=== PATIENT | female | born 1995 | race Two or more races ===

== ENCOUNTER 2017-03-03 09:03 | Emergency (ER) | payer BC, SELFPAY ==
[2017-03-03 09:21] VITALS: BP 143/60; PULSE 106; RESP 20; TEMP 37.5; O2SAT 97; BMI 22.6
--- NOTE | 2017-03-03 09:33 | HMH.EDUTC ---
[facility] [place] Dis[place] Clinical Impression: Flu-like symptoms Disposition: Home, Self-Care Condition on Discharge: Good Instructions: Influenza Additional Instructions: Rest, fluids, alternate Tylenol and Motrin for fever as needed. Will treat with Tamiflu due to possible inaccuracy of test and 5 month old infant in her care. Referrals: Dorinda Walker PA [Primary Care Provider] - Time of Disposition: 09:56 Medical Decision Making Vital Signs: 03/03/17 09:21 Temperature 99.5 F Temperature Source Oral Pulse Rate [Left Brachial] 106 H Respiratory Rate 20 Blood Pressure [Right Arm] 143/60 Blood Pressure Mean [Right Arm] 87 Blood Pressure Source [Right Arm] Automatic Cuff Blood Pressure Position [Right Arm] Sitting 02 Sat by Pulse Oximetry 97 Oxygen Delivery Method Room Air - Spenser Inquiry Pt receiving controlled substance: No [facility] [place] HPI - General Stated complaint: poss flu Time Seen by Provider: 03/03/17 09:25 Mode of Arrival: Ambulatory Source of Information: Patient Limitations: No Limitations Description of Symptoms (Recalled from Triage Doc. by RN): Cough, fever, congestion that started yesterday. Abrupt onset of fever 102.6 with malaise. Also has sore throat. Patient is 5 month old infant. HEENT Symptoms (Recalled from RN notes): Yes (sore throat) Resp Symptoms (Recalled from RN notes): Yes (cough) Skin Symptoms (Recalled from RN notes): No MS Symptoms (Recalled from RN notes): No Functional Status (Recalled from RN notes): na - History of Present Illness Provider Complaint: cough, sore throat, fever Onset (ago): day(s) (1) Associated symptoms: cough, fever/chills, headaches - Related Data Previous Rx's Medication Instructions Recorded Oseltamivir Phosphate [Tamiflu 75 mg PO BID 5 Days #10 cap 03/03/17 75mg Capsule] Promethazine/Dextromethorphan 5 ml PO Q6HP PRN 10 Days #180 syrup 03/03/17 [Promethazine-Dm Syrup] Allergies Allergy/AdvReac Type Severity Reaction Status Date / Time No Known Allergies Allergy Unverified 02/12/17 15:01 - Worker's Comp Is this a Worker's Comp case?: No Is this an H Worker's Comp?: No Is this a [place] Worker's Comp?: No [facility] History I have reviewed the patient's past medical history: Yes Medical History: Denies:: Cancer, Diabetes Mellitus Type 1, Diabetes Mellitus Type 2, MRSA Amputation: No - *Social History Alcohol Intake: never - Psychiatric History Expresses thoughts of harming self/others: None Suicide Plan Description: No Plan - Constitutional Reports body ache(s), Reports fever(s), Reports headache(s) - ENT Reports sore throat - Respiratory Reports cough Physical Exam - General General appearance: alert, in distress Comment: appears ill, but non-toxic - Head Head exam: atraumatic, normocephalic, normal inspection - Eye Eye exam: Present: normal appearance, PERRL, EOMI - ENT ENT exam: Present: normal exam, mucous membranes moist, TM's normal bilaterally, normal external ear exam - Expanded ENT Exam Throat exam: Present: tonsillar erythema - Neck Neck exam: Present: normal inspection, full ROM, trachea midline, lymphadenopathy. Absent: meningismus - Chest Chest inspection: Present: normal inspection, symmetric chest wall rise. Absent: tenderness - Respiratory Respiratory exam: Present: normal lung sounds bilaterally. Absent: respiratory distress - Cardiovascular Cardiovascular exam: Present: regular rate, normal rhythm. Absent: JVD - Abdominal Exam Abdominal exam: Present: soft, normal bowel sounds. Absent: distention, tenderness, guarding - Extremities Exam Extremities exam: Present: normal inspection, full ROM, normal capillary refill. Absent: calf tenderness - Back Exam Back exam: Present: normal inspection. Absent: tenderness - Neurological Exam Neurological exam: Present: alert, oriented X3 - Psychiatric Psychiatric exam: Present: normal affect, no
--- NOTE | 2017-03-03 09:36 | ED_ITS ---
[facility] [place]ression: Flu-like symptoms Disposition: Home, Self-Care Condition on Discharge: Good Instructions: Influenza Additional Instructions: Rest, fluids, alternate Tylenol and Motrin for fever as needed. Will treat with Tamiflu due to possible inaccuracy of test and 5 month old infant in her care. Referrals: Dorinda Walker PA [Primary Care Provider] - Time of Disposition: 09:56 Medical Decision Making Vital Signs: 03/03/17 09:21 Temperature 99.5 F Temperature Source Oral Pulse Rate [Left Brachial] 106 H Respiratory Rate 20 Blood Pressure [Right Arm] 143/60 Blood Pressure Mean [Right Arm] 87 Blood Pressure Source [Right Arm] Automatic Cuff Blood Pressure Position [Right Arm] Sitting 02 Sat by Pulse Oximetry 97 Oxygen Delivery Method Room Air - Spenser Inquiry Pt receiving controlled substance: No [facility] [place] - General Stated complaint: poss flu Time Seen by Provider: 03/03/17 09:25 Mode of Arrival: Ambulatory Source of Information: Patient Limitations: No Limitations Description of Symptoms (Recalled from Triage Doc. by RN): Cough, fever, congestion that started yesterday. Abrupt onset of fever 102.6 with malaise. Also has sore throat. Patient is 5 month old infant. HEENT Symptoms (Recalled from RN notes): Yes (sore throat) Resp Symptoms (Recalled from RN notes): Yes (cough) Skin Symptoms (Recalled from RN notes): No MS Symptoms (Recalled from RN notes): No Functional Status (Recalled from RN notes): na - History of Present Illness Provider Complaint: cough, sore throat, fever Onset (ago): day(s) (1) Associated symptoms: cough, fever/chills, headaches - Related Data Previous Rx's Medication Instructions Recorded Oseltamivir Phosphate [Tamiflu 75 mg PO BID 5 Days #10 cap 03/03/17 75mg Capsule] Promethazine/Dextromethorphan 5 ml PO Q6HP PRN 10 Days #180 syrup 03/03/17 [Promethazine-Dm Syrup] Allergies Allergy/AdvReac Type Severity Reaction Status Date / Time No Known Allergies Allergy Unverified 02/12/17 15:01 - Worker's Comp Is this a Worker's Comp case?: No Is this an H Worker's Comp?: No Is this a [place] Worker's Comp?: No [facility] History I have reviewed the patient's past medical history: Yes Medical History: Denies:: Cancer, Diabetes Mellitus Type 1, Diabetes Mellitus Type 2, MRSA Amputation: No - *Social History Alcohol Intake: never - Psychiatric History Expresses thoughts of harming self/others: None Suicide Plan Description: No Plan - Constitutional Reports body ache(s), Reports fever(s), Reports headache(s) - ENT Reports sore throat - Respiratory Reports cough Physical Exam - General General appearance: alert, in distress Comment: appears ill, but non-toxic - Head Head exam: atraumatic, normocephalic, normal inspection - Eye Eye exam: Present: normal appearance, PERRL, EOMI - ENT ENT exam: Present: normal exam, mucous membranes moist, TM's normal bilaterally , normal external ear exam - Expanded ENT Exam Throat exam: Present: tonsillar erythema - Neck Neck exam: Present: normal inspection, full ROM, trachea midline, lymphadenopathy. Absent: meningismus - Chest Chest inspection: Present: normal inspection, symmetric chest
[2017-03-03 09:55] LABS: UTC Influenza A Antigen Negative (Negative); UTC Influenza B Antigen Negative (Negative)
[2017-03-03 09:56] LABS: UTC Strep Screen (Rapid) Negative (Negative)
== END 2017-03-03 10:05 | disposition home or self-care (01) ==
PROVIDERS: Emergency Provider Physician Assistant; Family Provider Physician Assistant; PCP Physician Assistant
DX: J11.1 Influenza due to unidentified influenza virus with other respiratory manifestations (principal)
CPT/HCPCS: 87276; 87430; 87804; 87880; 99202

== ENCOUNTER 2017-03-23 09:38 | Emergency (ER) | payer BC, SELFPAY ==
[2017-03-23 10:01] VITALS: BP 137/87; PULSE 118; RESP 20; TEMP 36.6; O2SAT 98; BMI 21.0
--- NOTE | 2017-03-23 10:06 | HMH.EDUTC ---
[facility] [place] Clinical Impression: Otitis media Qualifiers: Otitis media type: unspecified Laterality: left Qualified Code(s): H66.92 - Otitis media, unspecified, left ear Disposition: Home, Self-Care Condition on Discharge: Good Instructions: Middle Ear Infection, Ear Infections (Middle Ear) (Alternative Therapy) Additional Instructions: Take medication as prescribed Follow up with family doctor if no improvement Return if needed Over the counter Motrin or Tylenol as needed for pain or fever Prescriptions: Amoxicillin [Amoxicillin 500mg Cap] 500 mg PO TID #30 cap Fluticasone Propionate [Flonase 50mcg nasal spray 16gm] 2 spr NS DAILY #1 bottle Loratadine [Claritin 10mg Tablet] 10 mg PO DAILY #30 tab Referrals: Dorinda Walker PA [Primary Care Provider] - Time of Disposition: 10:12 Medical Decision Making - Medical Records Medical records reviewed: Yes: I reviewed the patient's medical records. Vital Signs: 03/23/17 10:01 Temperature 98 F Temperature Source Oral Pulse Rate [Right Brachial] 118 H Respiratory Rate 20 Blood Pressure [Right Arm] 137/87 Blood Pressure Mean [Right Arm] 103 Blood Pressure Source [Right Arm] Automatic Cuff Blood Pressure Position [Right Arm] Sitting 02 Sat by Pulse Oximetry 98 Oxygen Delivery Method Room Air - Spenser Inquiry Pt receiving controlled substance: No [place] was queried for this patient: No [facility] [place] - General Stated complaint: bilateral earache Mode of Arrival: Ambulatory Source of Information: Patient Limitations: No Limitations Description of Symptoms (Recalled from Triage Doc. by RN): C/O lt ear pain and draining since yesterday HEENT Symptoms (Recalled from RN notes): Yes (Lt ear pain and drainage) Resp Symptoms (Recalled from RN notes): No Skin Symptoms (Recalled from RN notes): No MS Symptoms (Recalled from RN notes): No Functional Status (Recalled from RN notes): N/A - History of Present Illness Provider Complaint: Patient state that she had the flu about 3 weeks ago State that she is now having pain in both of her ears State that when she swallows it makes her throat hurt States that she is having pain in her left side of neck area just under her ear State that the pain in her ears have continued to get worse over the last 2 weeks - Related Data Home Medications Medication Instructions Recorded Confirmed etonogestrel 68 mg subdermal 1 implant SUBDERMAL ONCE 03/05/17 implant Previous Rx's Medication Instructions Recorded Oseltamivir Phosphate [Tamiflu 75 mg PO BID 5 Days #10 cap 03/03/17 75mg Capsule] Promethazine/Dextromethorphan 5 ml PO Q6HP PRN 10 Days #180 syrup 03/03/17 [Promethazine-Dm Syrup] Amoxicillin [Amoxicillin 500mg 500 mg PO TID #30 cap 03/23/17 Cap] Fluticasone Propionate [Flonase 2 spr NS DAILY #1 bottle 03/23/17 50mcg nasal spray 16gm] Loratadine [Claritin 10mg Tablet] 10 mg PO DAILY #30 tab 03/23/17 Allergies Allergy/AdvReac Type Severity Reaction Status Date / Time No Known Allergies Allergy Unverified 03/05/17 09:19 - Worker's Comp Is this a Worker's Comp case?: No [facility] History I have reviewed the patient's past medical history: Yes Medical History: Denies:: Cancer, Diabetes Mellitus Type 1, Diabetes Mellitus Type 2, MRSA Laterality Cases: Bilateral: Tonsillectomy Other Surgeries: Yes: Other Amputation: No Fractures: No - *Social History Smoking Status: Never smoker Alcohol Intake: never Substance Use Type: denies use - Psychiatric History Expresses thoughts of harming self/others: None Suicide Plan Description: No Plan *Family Hx:: No significant family history ROS Obtained: Yes All systems reviewed & no additional complaints Physical Exam - General General appearance: alert, in no apparent distress - Expanded ENT Exam TM/Canal exam: Left TM: erythema (Right mildly red), Bilateral TM: bulging Comment: Throat mildly red, irritated - Respirator
--- NOTE | 2017-03-23 10:09 | ED_ITS ---
[facility] [place] Impression: Otitis media Qualifiers: Otitis media type: unspecified Laterality: left Qualified Code(s): H66.92 - Otitis media, unspecified, left ear Disposition: Home, Self-Care Condition on Discharge: Good Instructions: Middle Ear Infection, Ear Infections (Middle Ear) (Alternative Therapy) Additional Instructions: Take medication as prescribed Follow up with family doctor if no improvement Return if needed Over the counter Motrin or Tylenol as needed for pain or fever Prescriptions: Amoxicillin [Amoxicillin 500mg Cap] 500 mg PO TID #30 cap Fluticasone Propionate [Flonase 50mcg nasal spray 16gm] 2 spr NS DAILY #1 bottle Loratadine [Claritin 10mg Tablet] 10 mg PO DAILY #30 tab Referrals: Dorinda Walker PA [Primary Care Provider] - Time of Disposition: 10:12 Medical Decision Making - Medical Records Medical records reviewed: Yes: I reviewed the patient's medical records. Vital Signs: 03/23/17 10:01 Temperature 98 F Temperature Source Oral Pulse Rate [Right Brachial] 118 H Respiratory Rate 20 Blood Pressure [Right Arm] 137/87 Blood Pressure Mean [Right Arm] 103 Blood Pressure Source [Right Arm] Automatic Cuff Blood Pressure Position [Right Arm] Sitting 02 Sat by Pulse Oximetry 98 Oxygen Delivery Method Room Air - Spenser Inquiry Pt receiving controlled substance: No [place] was queried for this patient: No [facility] [place] - General Stated complaint: bilateral earache Mode of Arrival: Ambulatory Source of Information: Patient Limitations: No Limitations Description of Symptoms (Recalled from Triage Doc. by RN): C/O lt ear pain and draining since yesterday HEENT Symptoms (Recalled from RN notes): Yes (Lt ear pain and drainage) Resp Symptoms (Recalled from RN notes): No Skin Symptoms (Recalled from RN notes): No MS Symptoms (Recalled from RN notes): No Functional Status (Recalled from RN notes): N/A - History of Present Illness Provider Complaint: Patient state that she had the flu about 3 weeks ago State that she is now having pain in both of her ears State that when she swallows it makes her throat hurt States that she is having pain in her left side of neck area just under her ear State that the pain in her ears have continued to get worse over the last 2 weeks - Related Data Home Medications Medication Instructions Recorded Confirmed etonogestrel 68 mg subdermal 1 implant SUBDERMAL ONCE 03/05/17 implant Previous Rx's Medication Instructions Recorded Oseltamivir Phosphate [Tamiflu 75 mg PO BID 5 Days #10 cap 03/03/17 75mg Capsule] Promethazine/Dextromethorphan 5 ml PO Q6HP PRN 10 Days #180 syrup 03/03/17 [Promethazine-Dm Syrup] Amoxicillin [Amoxicillin 500mg 500 mg PO TID #30 cap 03/23/17 Cap] Fluticasone Propionate [Flonase 2 spr NS DAILY #1 bottle 03/23/17 50mcg nasal spray 16gm] Loratadine [Claritin 10mg Tablet] 10 mg PO DAILY #30 tab 03/23/17 Allergies Allergy/AdvReac Type Severity Reaction Status Date / Time No Known Allergies Allergy Unverified 03/05/17 09:19 - Worker's Comp Is this a Worker's Comp case?: No [facility] History I have reviewed the patient's past medical history: Yes Medical History: Denies:: Cancer, Diabetes Mellitus Type 1, Diabetes Mellitus Type 2, MRSA Lateral
[2017-03-23 10:16] VITALS: BP 137/87; PULSE 118; RESP 20; TEMP 36.6; O2SAT 98
== END 2017-03-23 10:18 | disposition home or self-care (01) ==
PROVIDERS: Emergency Provider Nurse Practitioner; Family Provider Physician Assistant; PCP Physician Assistant
DX: H66.92 Otitis media, unspecified, left ear (principal); R00.0 Tachycardia, unspecified
CPT/HCPCS: 99202

== ENCOUNTER 2017-05-16 22:34 | Emergency (ER) | payer BC, SELFPAY ==
--- NOTE | 2017-05-16 22:41 | PC.NURSE ---
pan called and given an update on this patient.
[2017-05-16 23:00] VITALS: BP 00/00; PULSE 0; RESP 0; TEMP -17.7; TEMP 0
== END 2017-05-16 22:59 | disposition left against medical advice (07) ==
PROVIDERS: Emergency Provider Emergency Medicine; Family Provider Physician Assistant; PCP Physician Assistant
DX: Z53.29 Procedure and treatment not carried out because of patient's decision for other reasons (principal)
CPT/HCPCS: 99211

== ENCOUNTER → 2017-11-15 10:36 | Outpatient (CLI) | payer BC, SELFPAY ==
[2017-11-15 13:00] LABS: Thyroid Stimulating Hormone 2.15 uIU/ml (0.358-3.740)
== END ==
PROVIDERS: PCP Emergency Medicine; Visit Provider Obstetrics & Gynecology
DX: N93.8 Other specified abnormal uterine and vaginal bleeding (principal)
CPT/HCPCS: 36415; 84443

== ENCOUNTER → 2018-08-21 10:07 | Outpatient (CLI) | payer BC, SELFPAY ==
--- NOTE | 2018-08-21 10:08 | US_ITS ---
US breast RT complete INDICATION: Palpable nodule in the right breast at 9:00 with breast pain ORDERING PHYSICIAN: TONIO Castellon PATIENT AGE: 22 years COMPARISON: None TECHNIQUE: Right breast ultrasound complete with axilla FINDINGS: Heterogeneous echotexture fibroglandular tissue. No discrete mass evident. Specifically, no sonographically detected nodule at the 9:00 region. Small nodes are present in the axilla IMPRESSION: No nodules apparent BI-RADS Category: 1 Negative Follow-up suggested as clinically warranted. Negative ultrasound does not exclude possibility of a nodule. Any palpable nodule should be managed on a clinical basis. (A letter has been sent to the patient regarding results of the study.)
== END ==
PROVIDERS: PCP Physician Assistant; Visit Provider Physician Assistant
DX: N63.10 Unspecified lump in the right breast, unspecified quadrant (principal)
CPT/HCPCS: 76641

== ENCOUNTER → 2018-09-18 09:51 | Outpatient (CLI) | payer BC, SELFPAY ==
[2018-09-19 15:05] LABS: HIV Screen 4th Generation wRfx Non Reactive (Non Reactive); Hepatitis C Antibody <0.1 s/co ratio (0.0-0.9); Rapid Plasma Reagin Ab Titer Non Reactive (NonRea<1:1)
== END ==
PROVIDERS: Visit Provider Obstetrics & Gynecology
DX: Z11.3 Encounter for screening for infections with a predominantly sexual mode of transmission (principal)
CPT/HCPCS: 36415; 86592; 86703; 87380; G0432

== ENCOUNTER 2019-08-06 10:53 | Emergency (ER) | payer MEDICAID, SELFPAY ==
[2019-08-06 10:55] VITALS: BP 137/80; PULSE 95; RESP 16; TEMP 37.1; O2SAT 95; BMI 22.3
--- NOTE | 2019-08-06 11:19 | HMH.EDGENADL ---
ED Disposition Clinical Impression: Vaginal bleeding, Bacterial vaginosis Disposition: Home, Self-Care Condition on Discharge: Good Instructions: DI for Vaginal Bleeding, DI for Bacterial Vaginosis Additional Instructions: Flagyl as prescribed. Follow-up with Dr. Pablo in the office, call for appointment. Prescriptions: metroNIDAZOLE [Flagyl] 500 mg PO BID #14 tab Transmission Status: Pending to [id number] Referrals: Dorinda Walker PA [Primary Care Provider] - - Critical Care Critical Care Time: No Attestation: On 08/06/19, the high probability of a clinically significant, sudden or life threatening deterioration of the following system(s) required my full and direct attention, intervention and personal management. The time I documented below is in addition to time spent performing reported procedures but includes the following listed in this critical care notation. Medical Decision Making - Spenser Inquiry Pt receiving controlled substance: No Vital Signs: 08/06/19 10:55 Temperature 98.8 F Temperature Source Oral Pulse Rate [Left Radial] 95 H Respiratory Rate 16 Blood Pressure [Right Arm] 137/80 Blood Pressure Mean [Right Arm] 99 Blood Pressure Position [Right Arm] Sitting 02 Sat by Pulse Oximetry 95 Oxygen Delivery Method Room Air Oxygen Flow Rate (LPM) 2 - Lab Data Lab Results 08/06/19 11:05: Urine Color Yellow, Urine Appearance Clear, Urine pH 6.0, Ur Specific [place] 1.025, Urine Protein Negative, Urine Glucose (UA) Negative, Urine Ketones Negative, Urine Blood 2+, Urine Nitrate Negative, Urine Bilirubin Negative, Urine Urobilinogen 0.2, Ur Leukocyte Esterase Negative, Urine RBC 10-20, Urine WBC 3-5, Ur Squamous Epith Cells 5-10 08/06/19 11:05: Urine HCG, Qual Negative 08/06/19 11:08: WBC 10.2, RBC 4.63, Hgb 14.2, Hct 43.1, MCV 93.3, MCH 30.6, MCHC 32.8, RDW 12.3, Plt Count 306, MPV 7.4, Neut % (Auto) 60.6, Lymph % (Auto) 33.7, [place] % (Auto) 3.9, Eos % (Auto) 1.1, Baso % (Auto) 0.7, Neut # (Auto) 6.2, Lymph # (Auto) 3.4, [place] # (Auto) 0.4, Eos # (Auto) 0.1, Baso # (Auto) 0.1 08/06/19 11:08: Sodium 139, Potassium 3.7, Chloride 106, Carbon Dioxide 27, Anion Gap 9.7, BUN 12, Creatinine 0.70, Estimated Creat Clear 144, Estimated GFR 105, Est GFR ( Amer) 127, Glucose 101 H, Calcium 9.2, Total Bilirubin 1.6 H, AST 26, ALT 11 L, Alkaline Phosphatase 81, Total Protein 7.5, Albumin 4.6, Globulin 2.9, Albumin/Globulin Ratio 1.6 Result diagrams: 08/06/19 11:08 08/06/19 11:08 General Adult HPI - General Chief complaint: Vaginal Bleeding Stated complaint: Abnormal Vaginal bleeding ,cramps Time Seen by Provider: 08/06/19 11:19 Mode of Arrival: Ambulatory Limitations: No Limitations Description of Symptoms (Recalled from ER Triage Doc. by RN): to ed per pvt car with c/o vag bleeding watery mucus starting 2 weeks ago after intercourse. c/o lower abd pain and lower back pain. pt states LMP 2 weeks ago. - History of Present Illness HPI narrative: Complains of abnormal vaginal bleeding, bad vaginal odor, pelvic pain, dyspareunia for the past 2 weeks. Last normal menstrual period was 2 weeks ago. She used tampons, but says she does not have a retained tampon. She has a bottler, Dr. Pablo, but says that because of COVID-19 it has messed up her insurance and they will not see her for 30 days. She says she has been on the phone for 4-1/2 hours this morning and was unable to get anything arranged to be seen as an outpatient, therefore came to the emergency room. - Related Data Home Medications Medication Instructions Recorded Confirmed etonogestrel 68 mg subdermal SUBDERMAL each 09/18/18 09/23/18 implant Previous Rx's Medication Instructions Recorded vitamin E mixed 1,000 unit capsule 1 unit PO DAILY #90 cap 08/18/18 metroNIDAZOLE [Flagyl] 500 mg PO BID #14 tab 08/06/19 Allergies Allergy/AdvReac Type Severity Reaction Status Date / Time No Known Abhishek
[2019-08-06 11:24] LABS: Microscopic, Urine URINE MICROSCOPIC (MICROSCOPIC)
[2019-08-06 11:27] LABS: Appearance,Urine CLEAR (Clear); Bilirubin,Urine Negative (Negative); Blood, Urine 2+ (Negative); Color,Urine YELLOW (Yellow); Glucose,Urine (UA) Negative (Negative); Ketones,Urine Negative (Negative); Leukocyte Esterase,Urine Negative (Negative); Nitrate,Urine Negative (Negative); Protein,Urine Negative (Negative); Specific Gravity, Urine 1.025 (1.005-1.030); Urine Pregnancy, HCG Qual. Negative (Negative); Urobilinogen,Urine 0.2 EU/dl (0.2)
[2019-08-06 11:38] LABS: Chloride 106 mmol/L (98-107); Sodium 139 mmol/L (136-145)
[2019-08-06 11:39] LABS: Potassium 3.7 mmoL/L (3.5-5.1)
[2019-08-06 11:41] LABS: Alanine Aminotransferase 11 U/L (12-78); Alkaline Phosphatase 81 U/L (38-126); Anion Gap 9.7 mEq/L (5-15); Aspartate Amino Transferase 26 U/L (14-36); Bilirubin,Total 1.6 mg/dl (0.2-1.3); Blood Urea Nitrogen 12 mg/dl (7-17); Carbon Dioxide 27 mmol/L (22.0-30.0); Creatinine Clearance Estimated 144 mL/min (50-200); Estimated Glomerular Filt Rate 105 ml/min (>60); GFR (African American) 127 ML/MIN (>60)
[2019-08-06 11:42] LABS: Albumin Level 4.6 g/dl (3.5-5.0); Albumin/Globulin Ratio 1.6 (1.1-1.8); Calcium 9.2 mg/dl (8.4-10.2); Globulin 2.9 g/dL (1.3-3.2); Glucose 101 mg/dl (74-100); Total Protein,Serum 7.5 g/dl (6.3-8.2)
[2019-08-06 11:43] LABS: Basophils # 0.1 K/mm3 (0-0.2); Basophils % 0.7 % (0.1-2.0); Eosinophils # 0.1 K/mm3 (0.0-0.4); Eosinophils % 1.1 % (0.1-12.0); Hematocrit 43.1 % (37.0-47.0); Hemoglobin 14.2 g/dL (12.2-16.2); Lymphocytes # 3.4 K/mm3 (0.7-4.5); Lymphocytes % 33.7 % (10-50); Mean Corpuscular HGB Conc 32.8 g/dL (31.8-35.4); Mean Corpuscular Hemoglobin 30.6 pg (27.0-31.2); Mean Corpuscular Volume 93.3 fl (81-99); Mean Platelet Volume 7.4 fl (7.4-10.4); Monocytes # 0.4 K/mm3 (0.1-1.0); Monocytes % 3.9 % (1.7-9.3); Neutrophils # 6.2 K/mm3 (1.8-7.8); Neutrophils % 60.6 % (37.0-80.0); Platelet Count 306 K/mm3 (142-424); Red Blood Count 4.63 M/mm3 (4.20-5.40); Red Cell Distribution Width 12.3 % (11.5-17.5); White Blood Count 10.2 K/mm3 (4.8-10.8)
--- NOTE | 2019-08-06 12:13 | PC.NURSE ---
Assisted MD with vaginal exam and specimen collection
[2019-08-06 12:30] VITALS: BP 130/87; PULSE 80; RESP 20; TEMP 36.8; O2SAT 98
== END 2019-08-06 12:40 | disposition home or self-care (01) ==
PROVIDERS: Emergency Provider Emergency Medicine; PCP Physician Assistant
DX: N76.0 Acute vaginitis (principal); Z90.09 Acquired absence of other part of head and neck
CPT/HCPCS: 80053; 81001; 81025; 85025; 87210; 99283

== ENCOUNTER → 2020-10-26 09:32 | Outpatient (CLI) | payer BC, SELFPAY | PROVIDERS: PCP Emergency Medicine; Referring Provider Emergency Medicine; Visit Provider Emergency Medicine | DX: Z20.822 Contact with and (suspected) exposure to COVID-19 (principal); U07.1 COVID-19 | CPT/HCPCS: U0003 ==

== ENCOUNTER → 2021-02-22 11:15 | Outpatient (CLI) | payer BC, SELFPAY | PROVIDERS: Visit Provider Nurse Practitioner | DX: Z20.822 Contact with and (suspected) exposure to COVID-19 (principal) | CPT/HCPCS: C9803; U0003; U0005 ==

== ENCOUNTER 2021-04-21 04:39 | Emergency (ER) | payer OTHER, SELFPAY ==
[2021-04-21 04:42] VITALS: BP 144/85; PULSE 90; RESP 16; TEMP 36.8; O2SAT 99; BMI 21.2
[2021-04-21 04:54] VITALS: BMI 23.0
[2021-04-21 04:58] LABS: Appearance,Urine Slightly Cloudy (Clear); Bilirubin,Urine Negative (Negative); Blood, Urine TRACE-I (Negative); Color,Urine YELLOW (Yellow); Glucose,Urine (UA) Negative (Negative); Ketones,Urine Negative (Negative); Leukocyte Esterase,Urine TRACE (Negative); Microscopic, Urine URINE MICROSCOPIC (MICROSCOPIC); Nitrate,Urine Negative (Negative); Protein,Urine TRACE (Negative); Urobilinogen,Urine 0.2 EU/dl (0.2)
[2021-04-21 04:59] LABS: Bacteria,Urine 1+ /lpf; WBC,Urine Occasional #/hpf (0-3)
[2021-04-21 05:10] LABS: Chloride 102 mmol/L (98-107); Sodium 135 mmol/L (136-145)
[2021-04-21 05:11] LABS: Potassium 3.9 mmoL/L (3.5-5.1)
[2021-04-21 05:13] LABS: Alanine Aminotransferase 13 U/L (12-78); Alkaline Phosphatase 63 U/L (38-126); Amylase 67 U/L (30-110); Anion Gap 9.9 mEq/L (5-15); Aspartate Amino Transferase 22 U/L (14-36); Bilirubin,Total 0.6 mg/dl (0.2-1.3); Blood Urea Nitrogen 8 mg/dl (7-17); Calcium 8.5 mg/dl (8.4-10.2); Carbon Dioxide 27 mmol/L (22.0-30.0); Creatinine Clearance Estimated 171 mL/min (50-200); Estimated Glomerular Filt Rate 123 ml/min (>60); GFR (African American) 149 ML/MIN (>60); Glucose 93 mg/dl (74-100); HCG Qualitative, Serum Positive (Negative); Lipase 66 U/L (23-300)
[2021-04-21 05:14] LABS: Albumin Level 4.6 g/dl (3.5-5.0); Albumin/Globulin Ratio 1.8 (1.1-1.8); Globulin 2.6 g/dL (1.3-3.2); Total Protein,Serum 7.2 g/dl (6.3-8.2)
[2021-04-21 05:15] LABS: Basophils # 0.1 K/mm3 (0-0.2); Basophils % 0.6 % (0.1-2.0); Eosinophils # 0.1 K/mm3 (0.0-0.4); Eosinophils % 1.2 % (0.1-12.0); Hematocrit 42.5 % (37.0-47.0); Hemoglobin 13.8 g/dL (12.2-16.2); Lymphocytes # 2.2 K/mm3 (0.7-4.5); Lymphocytes % 22.6 % (10-50); Mean Corpuscular HGB Conc 32.6 g/dL (31.8-35.4); Mean Corpuscular Hemoglobin 30.1 pg (27.0-31.2); Mean Corpuscular Volume 92.4 fl (81-99); Mean Platelet Volume 7.3 fl (7.4-10.4); Monocytes # 0.4 K/mm3 (0.1-1.0); Monocytes % 4.1 % (1.7-9.3); Neutrophils # 6.9 K/mm3 (1.8-7.8); Neutrophils % 71.5 % (37.0-80.0); Platelet Count 406 K/mm3 (142-424); Red Cell Distribution Width 12.1 % (11.5-17.5); White Blood Count 9.7 K/mm3 (4.8-10.8)
[2021-04-21 05:18] LABS: Ethyl Alcohol < 10 mg/dl (0-10)
[2021-04-21 05:30] LABS: HCG,Quantitative 3909 mIU/ml (0-5.42)
--- NOTE | 2021-04-21 06:03 | PC.NURSE ---
notified radiology of ultrasound order
--- NOTE | 2021-04-21 06:13 | HMH.EDUROGF ---
ED Disposition Clinical Impression: Qualifiers: Weeks of gestation: less than 8 weeks Qualified Code(s): Z3A.01 - Less than 8 weeks gestation of Disposition: Home, Self-Care Condition on Discharge: Good Instructions: DI for -- Discomforts and Remedies Additional Instructions: call ob today Referrals: Dorinda Walker PA [Primary Care Provider] - - Critical Care Critical Care Time: No Attestation: On 04/21/21, the high probability of a clinically significant, sudden or life threatening deterioration of the following system(s) required my full and direct attention, intervention and personal management. The time I documented below is in addition to time spent performing reported procedures but includes the following listed in this critical care notation. Medical Decision Making - Medical Records Medical records reviewed: Yes: I reviewed the patient's medical records. - Spenser Inquiry Pt receiving controlled substance: No Vital Signs: 04/21/21 04:42 04/21/21 07:41 Temperature 98.2 F Temperature Source Oral Pulse Rate 77 Pulse Rate [Left] 90 Respiratory Rate 16 15 Blood Pressure 116/80 Blood Pressure [Right Arm] 144/85 H Blood Pressure Mean 92 Blood Pressure Mean [Right Arm] 104 02 Sat by Pulse Oximetry 99 99 Oxygen Delivery Method Room Air - Lab Data Lab results reviewed: Yes: I reviewed the patient's lab results. Lab Results 04/21/21 04:49: Urine Color Yellow, Urine Appearance Slightly cloudy, Urine pH 7.0, Ur Specific [place] 1.020, Urine Protein Trace, Urine Glucose (UA) Negative, Urine Ketones Negative, Urine Blood Trace-i, Urine Nitrate Negative, Urine Bilirubin Negative, Urine Urobilinogen 0.2, Ur Leukocyte Esterase Trace, Urine WBC Occasional, Ur Squamous Epith Cells 5-10, Urine Bacteria 1+ 04/21/21 04:55: WBC 9.7, RBC 4.60, Hgb 13.8, Hct 42.5, MCV 92.4, MCH 30.1, MCHC 32.6, RDW 12.1, Plt Count 406, MPV 7.3 L, Neut % (Auto) 71.5, Lymph % (Auto) 22.6, [place] % (Auto) 4.1, Eos % (Auto) 1.2, Baso % (Auto) 0.6, Neut # (Auto) 6.9, Lymph # (Auto) 2.2, [place] # (Auto) 0.4, Eos # (Auto) 0.1, Baso # (Auto) 0.1 04/21/21 04:55: Sodium 135 L, Potassium 3.9, Chloride 102, Carbon Dioxide 27, Anion Gap 9.9, BUN 8, Creatinine 0.60, Estimated Creat Clear 171, Estimated GFR 123, Est GFR ( Amer) 149, Glucose 93, Calcium 8.5, Total Bilirubin 0.6, AST 22, ALT 13, Alkaline Phosphatase 63, Total Protein 7.2, Albumin 4.6, Globulin 2.6, Albumin/Globulin Ratio 1.8, Amylase 67, Lipase 66, HCG, Quant 3909 H 04/21/21 04:55: Serum HCG, Qual Positive 04/21/21 04:55: Plasma/Serum Alcohol < 10 Result diagrams: 04/21/21 04:55 04/21/21 04:55 Orders (Tests/Meds): ED MEDICATIONS Generic Name Dose Route Start Last Admin Trade Name Freq PRN Reason Stop Dose Admin Sodium Chloride 8 ml 04/21/21 04:55 Sodium Chloride 0.9% 10ml Vial IV 05/21/21 04:54 NEEDED PRN dilute pepcid Discontinued Medications Generic Name Dose Route Start Last Admin Trade Name Freq PRN Reason Stop Dose Admin Famotidine 20 mg 04/21/21 04:55 04/21/21 05:07 Famotidine 20mg/2ml Vial IV 04/21/21 04:56 20 mg ONCE ONE Administration Sodium Chloride 1,000 mls @ 999 mls/hr 04/21/21 05:00 04/21/21 05:07 Sod Chlor 0.9% 1000ml Bag IV 04/21/21 06:00 999 mls/hr .[id number] SAMSON Administration ORDERS Category Date Time Status US OB transvaginal Stat Ultrasound 04/21/21 06:18 Ordered - US Data US Images: Pelvis ED US Reviewed: Yes: I have viewed radiologist's interpretation Preliminary Findings: Normal/NAD (iup) Medical Decision Narrative: pt with iup early and needs ob consult Female Urogenital HPI - General Chief complaint: Nausea/Vomiting/Diarrhea Stated complaint: vomiting,dizziness,pain in back on right side,preg Time Seen by Provider: 04/21/21 05:15 Mode of Arrival: Ambulatory Source of Information: Patient, Medical Record Limitations: No Limitations
--- NOTE | 2021-04-21 06:18 | US_ITS ---
FINAL REPORT CLINICAL HISTORY: pain FINDINGS: PELVIC ULTRASOUND An intrauterine gestational sac is present measuring 7 mm. A small yolk sac is seen. No cardiac activity is identified probably related to early IUP. There is a complex 1.8 cm right ovarian mass favoring a corpus luteum cyst. The left ovary is within normal limits. IMPRESSION: Early intrauterine . Recommend follow-up ultrasound and beta HCG. Reviewed, Interpreted and Dictated by Reynaldo Bolden MD Transcribed by Cosmo Adame Authenticated by Reynaldo Bolden MD on 04/21/2021 09:18:29 AM [facility]
[2021-04-21 07:41] VITALS: BP 116/80; PULSE 77; RESP 15; O2SAT 99
--- NOTE | 2021-04-21 07:44 | PC.NURSE ---
Pt to Ultrasound
--- NOTE | 2021-04-21 08:07 | PC.NURSE ---
Pt returned from ultrasound.
[2021-04-21 08:31] VITALS: BP 124/62; PULSE 78; RESP 16; TEMP 36.6; O2SAT 98
== END 2021-04-21 08:32 | disposition home or self-care (01) ==
PROVIDERS: Emergency Provider Emergency Medicine; PCP Physician Assistant
DX: R42 Dizziness and giddiness (principal); Z3A.01 Less than 8 weeks gestation of pregnancy; R11.2 Nausea with vomiting, unspecified
CPT/HCPCS: 76817; 80053; 81001; 82150; 83690; 84702; 84703; 85025; 99283

== ENCOUNTER → 2021-04-24 11:41 | Outpatient (CLI) | payer OTHER, SELFPAY ==
[2021-04-24 13:38] LABS: HCG,Quantitative 8297 mIU/ml (0-5.42)
== END ==
PROVIDERS: Visit Provider Obstetrics & Gynecology
DX: Z34.90 Encounter for supervision of normal pregnancy, unspecified, unspecified trimester (principal)
CPT/HCPCS: 36415; 84702

== ENCOUNTER 2021-05-08 09:08 | Emergency (ER) | payer BC, MEDICAID, SELFPAY ==
[2021-05-08 09:10] VITALS: BP 140/85; PULSE 69; RESP 18; TEMP 37; O2SAT 99; BMI 21.5
[2021-05-08 09:25] LABS: Apearance,Urine Clear (Clear); Bilirubin,Urine Negative (Negative); Blood, Urine Trace (Negative); Color,Urine Yellow (Yellow); Glucose,Urine (UA) Negative (Negative); Ketones,Urine Negative (Negative); Protein,Urine Negative (Negative); UTC Leukocyte Esterase,Urine Negative (Negative); UTC Nitrate,Urine Negative (Negative); Urobilinogen,Urine 0.2 EU/dl (0.2)
--- NOTE | 2021-05-08 10:08 | HMH.EDUTC ---
[facility] Disposition Clinical Impression: Qualifiers: Weeks of gestation: 8 weeks Qualified Code(s): Z3A.08 - 8 weeks gestation of Nausea & vomiting Qualifiers: Vomiting type: unspecified Qualified Code(s): R11.2 - Nausea with vomiting, unspecified Disposition: Home, Self-Care Condition on Discharge: Good Instructions: Diet, Medications and , DI for Urinary Tract Infection (UTI), Urine Culture Additional Instructions: Drink plenty of fluids. Take the medications as directed. Follow up with your regular doctor. GO TO THE ER FOR ANY WORSENING SYMPTOMS We will culture the urine. That will tell what bacteria is causing your infection and which antibiotics will treat it best. Sometimes the first antibiotic we prescribe turns out to not work against different bacteria. So, make sure you follow up within 3 days if you are not getting better. Prescriptions: Ondansetron [Zofran 4mg ODT] 4 mg PO Q8HP PRN #12 tab PRN Reason: Nausea Transmission Status: Pending to [facility] cephALEXin [cephALEXin 500mg capsule] 500 mg PO Q6H 7 Days #28 cap Transmission Status: Pending to [facility] Promethazine HCl [Phenergan 25mg tab] 25 mg PO Q6H PRN #20 tab PRN Reason: Nausea And Vomiting Transmission Status: Pending to [facility] Referrals: Dorinda Walker PA [Primary Care Provider] - Forms: Work/School Release Time of Disposition: 10:24 Medical Decision Making - Medical Records Medical records reviewed: No: I reviewed the patient's medical records. - [place] Inquiry Pt receiving controlled substance: No Vital Signs: 05/08/21 09:10 Temperature 98.6 F Temperature Source Oral Pulse Rate [Right Brachial] 69 Respiratory Rate 18 Blood Pressure [Right Arm] 140/85 Blood Pressure Mean [Right Arm] 103 Blood Pressure Source [Right Arm] Automatic Cuff Blood Pressure Position [Right Arm] Sitting 02 Sat by Pulse Oximetry 99 Oxygen Delivery Method Room Air - Lab Data Lab results reviewed: Yes: I reviewed the patient's lab results. Lab Results 05/08/21 09:18: Urine Color Yellow, Urine Appearance Clear, Urine pH 7.0, Ur Specific [place] 1.020, Urine Protein Negative, Urine Glucose (UA) Negative, Urine Ketones Negative, Urine Blood Trace, Urine Nitrate Negative, Urine Bilirubin Negative, Urine Urobilinogen 0.2, Ur Leukocyte Esterase Negative Orders (Tests/Meds): ED MEDICATIONS Generic Name Dose Route Start Last Admin Trade Name Freq PRN Reason Stop Dose Admin Sodium Chloride 1,000 mls @ 999 mls/hr 05/08/21 10:15 05/08/21 09:40 Sod Chlor 0.9% 1000ml Bag IV 05/08/21 11:15 999 mls/hr .Q1H1M SAMSON Administration Discontinued Medications Generic Name Dose Route Start Last Admin Trade Name Freq PRN Reason Stop Dose Admin Ondansetron HCl 4 mg 05/08/21 09:43 05/08/21 10:05 Ondansetron 4mg/2ml Vial IV 05/08/21 09:44 4 mg ONCE ONE Administration ORDERS Category Date Time Status Urine Culture Stat Micro 05/08/21 09:15 Received [facility] HPI - General Stated complaint: possible uti Time Seen by Provider: 05/08/21 09:20 Mode of Arrival: Ambulatory Source of Information: Patient Limitations: No Limitations Description of Symptoms (Recalled from Triage Doc. by RN): PATIENT C/O NAUSEA, VOMITING, AND POSSIBLE UTI X 3 DAYS HEENT Symptoms (Recalled from RN notes): No Resp Symptoms (Recalled from RN notes): No Skin Symptoms (Recalled from RN notes): No MS Symptoms (Recalled from RN notes): No Functional Status (Recalled from RN notes): WNL - History of Present Illness Provider Complaint: She is 8 weeks approximately. She has been having n/v for the past 5 days. She believes it is morning sickness related. She had similar symptoms with her previous 1 at first too. She has also been having dysuria and urinary frequency for the past 2 days. She denies any vaginal bleeding, back
[2021-05-08 10:18] VITALS: BP 140/85; PULSE 69; RESP 18; TEMP 37; O2SAT 99
== END 2021-05-08 10:39 | disposition home or self-care (01) ==
PROVIDERS: Emergency Provider Nurse Practitioner Family; PCP Physician Assistant
DX: O21.0 Mild hyperemesis gravidarum (principal); Z3A.08 8 weeks gestation of pregnancy; R30.0 Dysuria
CPT/HCPCS: 81003; 87086; 96365; 96375; 99213; G0463; J2405

== ENCOUNTER → 2021-05-08 14:00 | Outpatient (CLI) | payer BC, MEDICAID, SELFPAY ==
--- NOTE | 2021-05-08 14:07 | US_ITS ---
FINAL REPORT CLINICAL HISTORY: Dates-- fu prev FINDINGS: Sonographic images of the pelvis were obtained. A single, living intrauterine is noted. A yolk sac is present and measures 0.5 cm. [place] to rump length measures 1.4 cm which corresponds to 7 weeks 5 days gestation. Heartbeat is identified and measures 167 beats per minute. There is a presumed corpus luteum cyst measuring 1.8 cm in the right ovary. The left ovary is within normal limits. There is fluid adjacent to the gestational sac which is likely a subchorionic hemorrhage. IMPRESSION: Single, living, intrauterine gestation with 7 weeks 5 days gestational age. Presumed corpus luteum cyst in the right ovary. Fluid adjacent to the gestational sac, likely subchorionic hemorrhage. Reviewed, Interpreted and Dictated by Santino Maxwell III, MD Transcribed by Nadiya Field Authenticated by Santino Maxwell III, MD on 05/08/2021 05:08:41 PM [facility]
== END ==
PROVIDERS: PCP Physician Assistant; Visit Provider Obstetrics & Gynecology
DX: Z34.90 Encounter for supervision of normal pregnancy, unspecified, unspecified trimester (principal)
CPT/HCPCS: 76801

== ENCOUNTER → 2021-05-15 11:04 | Outpatient (CLI) | payer BC, MEDICAID, SELFPAY ==
[2021-05-15 11:48] LABS: Basophils # 0.1 K/mm3 (0-0.2); Basophils % 0.4 % (0.1-2.0); Eosinophils # 0.1 K/mm3 (0.0-0.4); Eosinophils % 0.7 % (0.1-12.0); Hematocrit 41.7 % (37.0-47.0); Hemoglobin 13.4 g/dL (12.2-16.2); Lymphocytes % 15.9 % (10-50); Mean Corpuscular HGB Conc 32.1 g/dL (31.8-35.4); Mean Corpuscular Hemoglobin 30.4 pg (27.0-31.2); Mean Corpuscular Volume 94.7 fl (81-99); Monocytes # 0.5 K/mm3 (0.1-1.0); Monocytes % 3.7 % (1.7-9.3); Neutrophils # 9.7 K/mm3 (1.8-7.8); Neutrophils % 79.2 % (37.0-80.0); Platelet Count 321 K/mm3 (142-424); Red Cell Distribution Width 12.4 % (11.5-17.5); White Blood Count 12.2 K/mm3 (4.8-10.8)
[2021-05-16 09:01] LABS: Rubella Antibodies, IgG <0.90 index (Immune >0.99)
[2021-05-16 09:17] LABS: Hepatitis B Surface Antigen Negative (Negative); Hepatitis C Antibody <0.1 s/co ratio (0.0-0.9)
[2021-05-16 12:13] LABS: HIV Screen 4th Generation wRfx Non Reactive (Non Reactive); Rapid Plasma Reagin Ab Titer Non Reactive (NonRea<1:1)
== END ==
PROVIDERS: PCP Physician Assistant; Visit Provider Obstetrics & Gynecology
DX: Z34.90 Encounter for supervision of normal pregnancy, unspecified, unspecified trimester (principal)
CPT/HCPCS: 36415; 85025; 86592; 86703; 86762; 86850; 87340; 87380; G0432

== ENCOUNTER 2021-05-25 06:12 | Emergency (ER) | payer BC, MEDICAID, SELFPAY ==
[2021-05-25 06:14] VITALS: BP 123/78; PULSE 107; RESP 17; TEMP 36.7; O2SAT 100; BMI 18.1
[2021-05-25 06:32] VITALS: BMI 17.6
[2021-05-25 06:44] LABS: Basophils % 0.3 % (0.1-2.0); Eosinophils # 0.1 K/mm3 (0.0-0.4); Eosinophils % 0.5 % (0.1-12.0); Hematocrit 43.4 % (37.0-47.0); Hemoglobin 14.3 g/dL (12.2-16.2); Lymphocytes # 0.3 K/mm3 (0.7-4.5); Lymphocytes % 2.2 % (10-50); Mean Corpuscular HGB Conc 32.9 g/dL (31.8-35.4); Mean Corpuscular Hemoglobin 30.4 pg (27.0-31.2); Mean Corpuscular Volume 92.4 fl (81-99); Mean Platelet Volume 7.8 fl (7.4-10.4); Monocytes # 0.3 K/mm3 (0.1-1.0); Monocytes % 2.2 % (1.7-9.3); Neutrophils # 13.3 K/mm3 (1.8-7.8); Neutrophils % 94.9 % (37.0-80.0); Platelet Count 301 K/mm3 (142-424); Red Blood Count 4.69 M/mm3 (4.20-5.40); Red Cell Distribution Width 12.5 % (11.5-17.5)
--- NOTE | 2021-05-25 06:48 | HMH.EDNVD ---
ED Disposition Clinical Impression: Gastroenteritis Qualifiers: Weeks of gestation: 10 weeks Qualified Code(s): Z3A.10 - 10 weeks gestation of Disposition: Home, Self-Care Condition on Discharge: Good Instructions: DI for Diarrhea and Traveler's Diarrhea -- Adult Additional Instructions: fluids and call ob and pcp for follow up Referrals: Dorinda Walker PA [Primary Care Provider] - - Critical Care Critical Care Time: No Attestation: On 05/25/21, the high probability of a clinically significant, sudden or life threatening deterioration of the following system(s) required my full and direct attention, intervention and personal management. The time I documented below is in addition to time spent performing reported procedures but includes the following listed in this critical care notation. Medical Decision Making - Medical Records Medical records reviewed: Yes: I reviewed the patient's medical records. - [place] Inquiry Pt receiving controlled substance: No Vital Signs: 05/25/21 06:14 05/25/21 07:00 Temperature 98.0 F Temperature Source Oral Pulse Rate 95 H Pulse Rate [Right] 107 H Respiratory Rate 17 Blood Pressure 123/75 Blood Pressure [Right Arm] 123/78 Blood Pressure Mean 87 Blood Pressure Mean [Right Arm] 93 Blood Pressure Source [Right Arm] Automatic Cuff 02 Sat by Pulse Oximetry 100 100 Oxygen Delivery Method Room Air - Lab Data Lab results reviewed: Yes: I reviewed the patient's lab results. Lab Results 05/25/21 06:26: ESR 6 05/25/21 06:26: C-Reactive Protein 6.5 H, Amylase 98, Procalcitonin 0.124 05/25/21 06:26: WBC 14.0 H, RBC 4.69, Hgb 14.3, Hct 43.4, MCV 92.4, MCH 30.4, MCHC 32.9, RDW 12.5, Plt Count 301, MPV 7.8, Neut % (Auto) 94.9 H, Lymph % (Auto) 2.2 L, [place] % (Auto) 2.2, Eos % (Auto) 0.5, Baso % (Auto) 0.3, Neut # (Auto) 13.3 H, Lymph # (Auto) 0.3 L, [place] # (Auto) 0.3, Eos # (Auto) 0.1, Baso # (Auto) 0.0, Total Counted 100, Neutrophils % (Manual) 93 H, Lymphocytes % (Manual) 4 L, Monocytes % (Manual) 3, Platelet Estimate Normal, RBC Morphology Normal 05/25/21 06:26: Sodium 138, Potassium 3.9, Chloride 107, Carbon Dioxide 24, Anion Gap 10.9, BUN 9, Creatinine 0.50 L, Estimated Creat Clear 162, Estimated GFR 152, Est GFR ( Amer) 183, Glucose 113 H, Calcium 9.0, Total Bilirubin 0.8, AST 23, ALT 20, Alkaline Phosphatase 66, Total Protein 7.2, Albumin 4.6, Globulin 2.6, Albumin/Globulin Ratio 1.8, Lipase 162, HCG, Quant [id number] H 05/25/21 06:26: Serum HCG, Qual Positive 05/25/21 07:30: Urine Color Yellow, Urine Appearance Clear, Urine pH 6.5, Ur Specific [place] 1.020, Urine Protein Negative, Urine Glucose (UA) Negative, Urine Ketones Negative, Urine Blood Negative, Urine Nitrate Negative, Urine Bilirubin Negative, Urine Urobilinogen 0.2, Ur Leukocyte Esterase Negative, Urine RBC None, Urine WBC 3-5, Ur Squamous Epith Cells Occasional, Urine Bacteria None Result diagrams: 05/25/21 06:26 05/25/21 06:26 Orders (Tests/Meds): ED MEDICATIONS Discontinued Medications Generic Name Dose Route Start Last Admin Trade Name Rk PRN Reason Stop Dose Admin Sodium Chloride 1,000 mls @ 999 mls/hr 05/25/21 06:45 05/25/21 06:40 Sod Chlor 0.9% 1000ml Bag IV 05/25/21 07:45 999 mls/hr .Q1H1M SAMSON Administration Promethazine HCl 25 mg 05/25/21 07:18 05/25/21 07:50 Promethazine Hcl 25mg/Ml 1ml Vial IV 05/25/21 07:19 25 mg ONCE ONE Administration Sodium Chloride 25 ml 05/25/21 07:18 05/25/21 07:50 Sodium Chloride 0.9% 25ml Bag IV 05/25/21 07:19 25 ml ONCE ONE Administration ORDERS Category Date Time Status Diarrhea 23 Panel, PCR Stat Lab 05/25/21 06:33 Ordered Rapid PCR Covid and Flu A/B Stat Lab 05/25/21 06:33 Ordered Medical Decision Narrative: has gastroenteritis and has stable labs and exam - improved after fluids - is 10 weeks Nausea/Vomiting/Diarrhea HPI - General Stated complaint: Vomi
[2021-05-25 06:49] LABS: MANUAL DIFFERENTIAL MANUAL DIFFERENTIAL (MANUAL DIFF)
[2021-05-25 06:52] LABS: Amylase 98 U/L (30-110); HCG Qualitative, Serum Positive (Negative)
[2021-05-25 06:53] LABS: Alanine Aminotransferase 20 U/L (12-78); Albumin Level 4.6 g/dl (3.5-5.0); Albumin/Globulin Ratio 1.8 (1.1-1.8); Alkaline Phosphatase 66 U/L (38-126); Anion Gap 10.9 mEq/L (5-15); Aspartate Amino Transferase 23 U/L (14-36); Bilirubin,Total 0.8 mg/dl (0.2-1.3); Blood Urea Nitrogen 9 mg/dl (7-17); Carbon Dioxide 24 mmol/L (22.0-30.0); Chloride 107 mmol/L (98-107); Creatinine Clearance Estimated 162 mL/min (50-200); Estimated Glomerular Filt Rate 152 ml/min (>60); GFR (African American) 183 ML/MIN (>60); Globulin 2.6 g/dL (1.3-3.2); Glucose 113 mg/dl (74-100); Lipase 162 U/L (23-300); Potassium 3.9 mmoL/L (3.5-5.1); Sodium 138 mmol/L (136-145); Total Protein,Serum 7.2 g/dl (6.3-8.2)
[2021-05-25 06:59] LABS: C-Reactive Protein 6.5 mg/L (0-4)
[2021-05-25 07:00] VITALS: BP 123/75; PULSE 95; O2SAT 100
[2021-05-25 07:03] LABS: Lymphocytes % 4 % (10-50); Monocytes % 3 % (2-9); Neutrophils % 93 % (42-76); Platelet Estimate Normal; RBC Morphology Normal; Total Cells Counted 100
[2021-05-25 07:12] LABS: Procalcitonin 0.124 ng/mL (0.0-2.0)
[2021-05-25 07:23] LABS: Erythrocyte Sedimentation Rate 6 mm/hr (0-20)
[2021-05-25 07:39] LABS: Microscopic, Urine URINE MICROSCOPIC (MICROSCOPIC)
[2021-05-25 07:43] LABS: Appearance,Urine CLEAR (Clear); Bilirubin,Urine Negative (Negative); Blood, Urine Negative (Negative); Color,Urine YELLOW (Yellow); Glucose,Urine (UA) Negative (Negative); Ketones,Urine Negative (Negative); Leukocyte Esterase,Urine Negative (Negative); Nitrate,Urine Negative (Negative); PH,Urine 6.5 (5.0-8.5); Protein,Urine Negative (Negative); Urobilinogen,Urine 0.2 EU/dl (0.2)
--- NOTE | 2021-05-25 07:54 | PC.NURSE ---
pt received ice chips per
[2021-05-25 07:55] LABS: Squamous Epithelial Cell,Urine Occasional #/hpf (0-5)
[2021-05-25 08:40] VITALS: BP 107/65; PULSE 78; RESP 16; TEMP 36.6; O2SAT 96
== END 2021-05-25 08:42 | disposition home or self-care (01) ==
PROVIDERS: Emergency Provider Emergency Medicine; PCP Physician Assistant
DX: K52.9 Noninfective gastroenteritis and colitis, unspecified (principal); Z3A.10 10 weeks gestation of pregnancy; F17.210 Nicotine dependence, cigarettes, uncomplicated
CPT/HCPCS: 80053; 81001; 82150; 83690; 84145; 84702; 84703; 85007; 85025; 85651; 86140; 96360; 96361; 96365; 96374; 96375; 99284

== ENCOUNTER → 2021-08-04 12:47 | Outpatient (CLI) | payer BC, MEDICAID, SELFPAY ==
--- NOTE | 2021-08-04 12:51 | US_ITS ---
FINAL REPORT CLINICAL HISTORY: Anatomy scan FINDINGS: There is a single live intrauterine gestation. Presentation is cephalic. The cervix is closed and measures 4.28 cm. Placenta is anterior, grade 1. movement is noted. heart rate is 150 beats per minute Three-vessel cord with satisfactory umbilical cord insertion. Four-chamber heart is noted. brain and ventricles are unremarkable. Chest and diaphragm are unremarkable. ABDOMEN: Both kidneys are unremarkable. Stomach is unremarkable. SPINE: No anomalies identified. Both arms and legs noted. AMNIOTIC FLUID: Appropriate amount. MEASUREMENTS: ULTRASOUND AGE: 20 weeks 1 day. GESTATION AGE: 20 weeks 2 days. ESTIMATED WEIGHT: 339 g GROWTH PERCENTILE: 41 % BPD: 4.69 cm consistent with 20 weeks 2 days. OFD: 5.99 cm consistent with 20 weeks 3 days. HC: 16.90 cm consistent with 19 weeks 4 days. AC: 15.13 cm consistent with 20 weeks 3 days. FL: 3.27 cm consistent with 20 weeks 2 days. CEREBELLUM: 1.99 cm consistent with 20 weeks 2 days. HUMERUS: 3.17 cm consistent with 20 weeks 5 days. NUCHAL FOLD: 2.14 mm HC/AC: 1.12 CI: 78% FL/BPD: 70% FL/AC: 22% IMPRESSION: Single living IUP with an ultrasound age of 20 weeks 1 day. Reviewed, Interpreted and Dictated by Santino Maxwell III, MD Transcribed by Lorene Prater Authenticated and [facility]
== END ==
PROVIDERS: PCP Physician Assistant; Visit Provider Obstetrics & Gynecology
DX: Z34.90 Encounter for supervision of normal pregnancy, unspecified, unspecified trimester (principal)
CPT/HCPCS: 76811

== ENCOUNTER → 2021-09-22 08:19 | Outpatient (CLI) | payer BC, MEDICAID, SELFPAY ==
[2021-09-22 08:38] LABS: Basophils # 0.1 K/mm3 (0-0.2); Basophils % 0.4 % (0.1-2.0); Eosinophils # 0.2 K/mm3 (0.0-0.4); Eosinophils % 1.4 % (0.1-12.0); Hematocrit 37.3 % (37.0-47.0); Hemoglobin 11.8 g/dL (12.2-16.2); Lymphocytes # 1.7 K/mm3 (0.7-4.5); Lymphocytes % 10.2 % (10-50); Mean Corpuscular HGB Conc 31.8 g/dL (31.8-35.4); Mean Corpuscular Hemoglobin 30.6 pg (27.0-31.2); Mean Corpuscular Volume 96.4 fl (81-99); Mean Platelet Volume 8.2 fl (7.4-10.4); Monocytes # 0.7 K/mm3 (0.1-1.0); Monocytes % 4.2 % (1.7-9.3); Neutrophils # 14.2 K/mm3 (1.8-7.8); Neutrophils % 83.8 % (37.0-80.0); Platelet Count 277 K/mm3 (142-424); Red Blood Count 3.87 M/mm3 (4.20-5.40); Red Cell Distribution Width 13.8 % (11.5-17.5)
[2021-09-22 08:47] LABS: Glucose,Fasting 82 mg/dl (74-100)
[2021-09-22 09:10] LABS: MANUAL DIFFERENTIAL MANUAL DIFFERENTIAL (MANUAL DIFF)
[2021-09-22 10:28] LABS: Glucose 1 Hour 121 mg/dL (74-100)
[2021-09-22 11:52] LABS: Lymphocytes % 12 % (10-50); Monocytes % 3 % (2-9); Neutrophils % 85 % (42-76); Total Cells Counted 100
[2021-09-22 11:53] LABS: Platelet Estimate Normal; RBC Morphology Normal
== END ==
PROVIDERS: PCP Physician Assistant; Visit Provider Obstetrics & Gynecology
DX: Z34.90 Encounter for supervision of normal pregnancy, unspecified, unspecified trimester (principal)
CPT/HCPCS: 36415; 82951; 85007; 85025

== ENCOUNTER → 2021-09-30 09:19 | Outpatient (CLI) | payer BC, MEDICAID, SELFPAY ==
[2021-09-30 10:16] LABS: Basophils # 0.1 K/mm3 (0-0.2); Basophils % 0.5 % (0.1-2.0); Eosinophils # 0.1 K/mm3 (0.0-0.4); Eosinophils % 0.8 % (0.1-12.0); Hematocrit 34.5 % (37.0-47.0); Lymphocytes # 1.7 K/mm3 (0.7-4.5); Lymphocytes % 16.5 % (10-50); Mean Corpuscular HGB Conc 31.9 g/dL (31.8-35.4); Mean Corpuscular Hemoglobin 31.2 pg (27.0-31.2); Mean Corpuscular Volume 97.9 fl (81-99); Mean Platelet Volume 8.2 fl (7.4-10.4); Monocytes # 0.5 K/mm3 (0.1-1.0); Monocytes % 5.4 % (1.7-9.3); Neutrophils # 7.7 K/mm3 (1.8-7.8); Neutrophils % 76.8 % (37.0-80.0); Platelet Count 360 K/mm3 (142-424); Red Blood Count 3.53 M/mm3 (4.20-5.40); Red Cell Distribution Width 13.5 % (11.5-17.5)
== END ==
PROVIDERS: PCP Physician Assistant; Visit Provider Obstetrics & Gynecology
DX: O23.40 Unspecified infection of urinary tract in pregnancy, unspecified trimester (principal)
CPT/HCPCS: 85025

== ENCOUNTER 2021-10-24 17:29 | Outpatient (CLI) | payer BC, MEDICAID, SELFPAY ==
[2021-10-24 17:43] VITALS: BMI 21.7
[2021-10-24 17:44] VITALS: BP 121/71; PULSE 82; RESP 19; TEMP 36.7; O2SAT 97; BMI 21.7
[2021-10-24 18:32] LABS: Microscopic, Urine URINE MICROSCOPIC (MICROSCOPIC)
[2021-10-24 18:50] LABS: Appearance,Urine CLEAR (Clear); Bilirubin,Urine Negative (Negative); Blood, Urine Negative (Negative); Color,Urine YELLOW (Yellow); Glucose,Urine (UA) Negative (Negative); Ketones,Urine Negative (Negative); Leukocyte Esterase,Urine TRACE (Negative); Nitrate,Urine Negative (Negative); Protein,Urine Negative (Negative); Urobilinogen,Urine 0.2 EU/dl (0.2)
[2021-10-24 18:57] LABS: Amphetamine/Metha Screen,Urine Negative ng/ml (<1000); Benzodiazepines Screen,Urine Negative ng/ml (<200)
[2021-10-24 18:58] LABS: Barbiturates Screen,Urine Negative ng/ml (<200); Cannabinoid Screen,Urine Negative ng/ml (<50)
[2021-10-24 18:59] LABS: Cocaine Screen,Urine Negative ng/ml (<300)
[2021-10-24 19:00] LABS: Methadone Screen,Urine Negative ng/ml (<300); Opiate Screen,Urine Negative ng/ml (<300)
[2021-10-24 19:01] LABS: Phencyclidine Screen,Urine Negative ng/ml (<25)
[2021-10-24 19:32] LABS: Bacteria,Urine Trace /lpf
[2021-10-24 19:36] LABS: Fetal Fibronectin (Rapid) Negative (Negative)
== END 2021-10-24 20:00 | disposition home or self-care (01) ==
LOC: OBOUT 17:33 → OB 17:35
PROVIDERS: PCP Obstetrics & Gynecology; Visit Provider Nurse Practitioner Obstetrics & Gynecology
DX: O47.03 False labor before 37 completed weeks of gestation, third trimester (principal); Z3A.31 31 weeks gestation of pregnancy
CPT/HCPCS: 59025; 80305; 81001; 82731; 96365; 96372; G0463

== ENCOUNTER 2021-10-30 13:17 | Outpatient (CLI) | payer BC, MEDICAID, SELFPAY ==
[2021-10-30 13:47] VITALS: BMI 22.3
[2021-10-30 13:53] LABS: Microscopic, Urine URINE MICROSCOPIC (MICROSCOPIC)
[2021-10-30 13:55] LABS: Appearance,Urine CLEAR (Clear); Bilirubin,Urine Negative (Negative); Blood, Urine TRACE-L (Negative); Color,Urine YELLOW (Yellow); Glucose,Urine (UA) Negative (Negative); Ketones,Urine Negative (Negative); Leukocyte Esterase,Urine TRACE (Negative); Nitrate,Urine Negative (Negative); PH,Urine 6.5 (5.0-8.5); Protein,Urine Negative (Negative); Specific Gravity, Urine <= 1.005 (1.005-1.030); Urobilinogen,Urine 0.2 EU/dl (0.2)
[2021-10-30 14:00] VITALS: BP 138/84; PULSE 105; RESP 16; TEMP 36.6; O2SAT 100; BMI 22.3
[2021-10-30 14:09] LABS: Barbiturates Screen,Urine Negative ng/ml (<200)
[2021-10-30 14:10] LABS: Benzodiazepines Screen,Urine Negative ng/ml (<200)
[2021-10-30 14:11] LABS: Amphetamine/Metha Screen,Urine Negative ng/ml (<1000); Cannabinoid Screen,Urine Negative ng/ml (<50)
[2021-10-30 14:12] LABS: Cocaine Screen,Urine Negative ng/ml (<300)
[2021-10-30 14:13] LABS: Methadone Screen,Urine Negative ng/ml (<300); Opiate Screen,Urine Negative ng/ml (<300)
[2021-10-30 14:14] LABS: Phencyclidine Screen,Urine Negative ng/ml (<25)
[2021-10-30 14:16] LABS: Bacteria,Urine Trace /lpf; RBC,Urine Occasional #/hpf (0-3); Squamous Epithelial Cell,Urine Occasional #/hpf (0-5); WBC,Urine Occasional #/hpf (0-3)
--- NOTE | 2021-10-30 14:57 | US_ITS ---
PROCEDURE INFORMATION: Exam: US , Limited Exam date and time: 10/30/2021 3:39 PM Age: 26 years old Clinical indication: Lmp or gestational age (in weeks): Champ dec 20, 2021; Other: PT having contractions; ; Additional info: Cervical length TECHNIQUE: Imaging protocol: Real-time ultrasound of the maternal uterus with image documentation. Exam focused on the clinical indication. COMPARISON: US OB /MATERNAL DETAIL 08/04/2021 1:02 PM FINDINGS: Gestation: The fetus was not evaluated on this limited exam. MATERNAL: Cervix: Limited exam was performed for evaluation of the endocervical canal. Mean canal length is 3.7 cm. The canal appears closed. No endocervical fluid collection. IMPRESSION: Endocervical canal measured 3.7 cm length, and appeared closed.
== END 2021-10-30 16:03 | disposition home or self-care (01) ==
LOC: OBOUT 13:18 → OB 13:34
PROVIDERS: PCP Physician Assistant; Referring Provider Obstetrics & Gynecology; Visit Provider Obstetrics & Gynecology
DX: O47.03 False labor before 37 completed weeks of gestation, third trimester (principal); Z3A.32 32 weeks gestation of pregnancy; R10.2 Pelvic and perineal pain; R11.0 Nausea
CPT/HCPCS: 59025; 76817; 80305; 81001; 96365; G0463

== ENCOUNTER → 2021-11-03 13:23 | Outpatient (CLI) | payer BC, MEDICAID, SELFPAY ==
--- NOTE | 2021-11-03 13:23 | US_ITS ---
FINAL REPORT CLINICAL HISTORY: sga-- bpp /fu and sd ratio done FINDINGS: TRANSABDOMINAL ULTRASOUND There is a single live intrauterine gestation. Presentation is cephalic. The cervix is closed and measures 3.2 cm. Placenta is anterior, grade 3. Cardiac activity is confirmed at 144 bpm. Fetus is active and practice breathing is seen. OMAR: 12.96 cm UMBILICAL ARTERY SD RATIO: 2.47 MEASUREMENTS: ULTRASOUND AGE: 33 weeks 6 days. GESTATION AGE: 33 weeks 2 days. ESTIMATED WEIGHT: 2242 g GROWTH PERCENTILE: 53% LMP percentile BPD: 8.7 cm corresponding with 35 weeks 0 days. OFD: 8.6 cm corresponding with 34 weeks 4 days. HC: 30.6 cm corresponding with 34 weeks 1 day. AC: 30.2 cm corresponding with 34 weeks 1 day. FL: 6.2 cm corresponding with 32 weeks 1 day. HC/AC: 1.01 CI: 81% FL/BPD: 72% FL/AC: 21% BREATHIN/2 MOVEMENT: 2/2 TONE: 2/2 FLUID VOLUME: 2/2 BPP SCORE: 8/8 IMPRESSION: Single living IUP with an ultrasound age of 33 weeks 6 days. BPP SCORE: 8/8 OMAR: 12.96 cm Reviewed, Interpreted and Dictated by Santino Maxwell III, MD Transcribed by Nadiya Field Authenticated and [facility]
== END ==
PROVIDERS: PCP Physician Assistant; Visit Provider Obstetrics & Gynecology
DX: O36.5990 Maternal care for other known or suspected poor fetal growth, unspecified trimester, not applicable or unspecified (principal)
CPT/HCPCS: 76816; 76819; 76820

== ENCOUNTER → 2021-11-24 16:05 | Outpatient (CLI) | payer BC, MEDICAID, SELFPAY | PROVIDERS: Visit Provider Obstetrics & Gynecology | DX: Z34.90 Encounter for supervision of normal pregnancy, unspecified, unspecified trimester (principal); Z3A.35 35 weeks gestation of pregnancy | CPT/HCPCS: 86403 ==

== ENCOUNTER → 2021-12-02 08:25 | Outpatient (CLI) | payer BC, MEDICAID, SELFPAY | PROVIDERS: Visit Provider Obstetrics & Gynecology | DX: Z34.90 Encounter for supervision of normal pregnancy, unspecified, unspecified trimester (principal) | CPT/HCPCS: 87086; 87088; 87186 ==

== ENCOUNTER 2021-12-07 01:15 | Outpatient (CLI) | payer BC, MEDICAID, SELFPAY ==
[2021-12-07 01:37] VITALS: BMI 26.4
[2021-12-07 01:39] VITALS: BP 151/94; PULSE 91; RESP 18; TEMP 36.7; O2SAT 98; BMI 26.4
[2021-12-07 01:44] LABS: Microscopic, Urine URINE MICROSCOPIC (MICROSCOPIC)
[2021-12-07 01:45] LABS: Appearance,Urine CLEAR (Clear); Bilirubin,Urine Negative (Negative); Blood, Urine Negative (Negative); Color,Urine YELLOW (Yellow); Glucose,Urine (UA) Negative (Negative); Ketones,Urine Negative (Negative); Leukocyte Esterase,Urine 1+ (Negative); Nitrate,Urine Negative (Negative); Protein,Urine Negative (Negative); Urobilinogen,Urine 0.2 EU/dl (0.2)
[2021-12-07 02:01] LABS: Barbiturates Screen,Urine Negative ng/ml (<200)
[2021-12-07 02:02] LABS: Amphetamine/Metha Screen,Urine Negative ng/ml (<1000); Benzodiazepines Screen,Urine Negative ng/ml (<200)
[2021-12-07 02:03] LABS: Cannabinoid Screen,Urine Negative ng/ml (<50)
[2021-12-07 02:04] LABS: Cocaine Screen,Urine Negative ng/ml (<300); Methadone Screen,Urine Negative ng/ml (<300)
[2021-12-07 02:05] LABS: Opiate Screen,Urine Negative ng/ml (<300)
[2021-12-07 02:08] LABS: Phencyclidine Screen,Urine Negative ng/ml (<25)
[2021-12-07 02:10] VITALS: BP 141/82
[2021-12-07 02:19] LABS: Bacteria,Urine 1+ /lpf
== END 2021-12-07 02:40 | disposition home or self-care (01) ==
LOC: OBOUT 01:16 → OB 01:17
PROVIDERS: PCP Physician Assistant; Referring Provider Obstetrics & Gynecology; Visit Provider Obstetrics & Gynecology
DX: O60.03 Preterm labor without delivery, third trimester (principal); Z3A.38 38 weeks gestation of pregnancy; M54.50 Low back pain, unspecified
CPT/HCPCS: 59025; 80305; 81001; 87086; 96365; G0463

== ENCOUNTER 2021-12-14 04:55 | Inpatient (IN) | payer BC, MEDICAID, SELFPAY ==
[2021-12-14] VITALS (9 sets, daily range): BP systolic 136–155; BP diastolic 73–86; PULSE 78–107; RESP 18–19; TEMP 36.7–37.1; O2SAT 100; BMI 27.6
[2021-12-14 06:41] LABS: Microscopic, Urine URINE MICROSCOPIC (MICROSCOPIC)
[2021-12-14 06:41] LABS: Coronavirus 19, PCR Not Detected (NotDetected); Influenza A, PCR Not Detected (NotDetected); Influenza B, PCR Not Detected (NotDetected)
[2021-12-14 06:44] LABS: Basophils # 0.1 K/mm3 (0-0.2); Basophils % 0.7 % (0.1-2.0); Eosinophils # 0.1 K/mm3 (0.0-0.4); Eosinophils % 0.6 % (0.1-12.0); Hematocrit 35.7 % (37.0-47.0); Hemoglobin 11.7 g/dL (12.2-16.2); Lymphocytes # 2.6 K/mm3 (0.7-4.5); Lymphocytes % 16.5 % (10-50); Mean Corpuscular HGB Conc 32.8 g/dL (31.8-35.4); Mean Corpuscular Hemoglobin 30.1 pg (27.0-31.2); Mean Corpuscular Volume 91.7 fl (81-99); Mean Platelet Volume 8.3 fl (7.4-10.4); Monocytes # 0.7 K/mm3 (0.1-1.0); Monocytes % 4.4 % (1.7-9.3); Neutrophils # 12.3 K/mm3 (1.8-7.8); Neutrophils % 77.8 % (37.0-80.0); Platelet Count 310 K/mm3 (142-424); Red Cell Distribution Width 13.8 % (11.5-17.5); White Blood Count 15.8 K/mm3 (4.8-10.8)
[2021-12-14 06:47] LABS: MANUAL DIFFERENTIAL MANUAL DIFFERENTIAL (MANUAL DIFF)
[2021-12-14 06:58] LABS: Amphetamine/Metha Screen,Urine Negative ng/ml (<1000)
[2021-12-14 06:59] LABS: Barbiturates Screen,Urine Negative ng/ml (<200); Cannabinoid Screen,Urine Negative ng/ml (<50)
[2021-12-14 07:00] LABS: Cocaine Screen,Urine Negative ng/ml (<300)
[2021-12-14 07:01] LABS: Methadone Screen,Urine Negative ng/ml (<300); Opiate Screen,Urine Negative ng/ml (<300)
[2021-12-14 07:02] LABS: Phencyclidine Screen,Urine Negative ng/ml (<25)
--- NOTE | 2021-12-14 07:26 | HMH.PHAINT1 ---
Pharmacy Intervention Comments: MEDICATION RECONCILIATION COMPLETED ON PATIENT USING EXTERNAL FILL HISTORY FROM PHARMACY. -JUAN BARRERA, MIGDALIAD
[2021-12-14 07:37] LABS: Lymphocytes % 16 % (10-50); Monocytes % 4 % (2-9); Neutrophils % 80 % (42-76); Platelet Estimate Normal; RBC Morphology Normal; Total Cells Counted 100
[2021-12-14 07:57] LABS: Benzodiazepines Screen,Urine Negative ng/ml (<200)
[2021-12-14 08:04] LABS: Appearance,Urine CLEAR (Clear); Bilirubin,Urine Negative (Negative); Blood, Urine Negative (Negative); Color,Urine YELLOW (Yellow); Glucose,Urine (UA) Negative (Negative); Ketones,Urine Negative (Negative); Leukocyte Esterase,Urine TRACE (Negative); Nitrate,Urine Negative (Negative); Protein,Urine Negative (Negative); Specific Gravity, Urine 1.015 (1.005-1.030); Urobilinogen,Urine 0.2 EU/dl (0.2)
[2021-12-14 08:14] LABS: Bacteria,Urine Trace /lpf; Squamous Epithelial Cell,Urine Occasional #/hpf (0-5); WBC,Urine Occasional #/hpf (0-3)
--- NOTE | 2021-12-14 12:15 | EXP.HP ---
History of Present Illness *Admission Date: 12/14/21 *Reason for visit:: Labor Induction *History of present illness: 26 yo @ 39 03/03 JESSICA 12/20/21; dating by 7 07/01 ultrasound care at [facility]--Dr. Almaguer complicated by tobacco and THC abuse, maternal anemia and rubella non-immune status Previous delivery at 36 weeks was secondary to induction of labor due to preeclampsia [facility] Medical History (Updated 12/14/21 @ 12:34 by Cheyenne Almaguer MD) Mild tetrahydrocannabinol (THC) abuse No significant past medical history Family History No significant family history Social History (Updated 12/14/21 @ 06:09 by Jeana Forrest, JYOTI) Smoking Status: Current every day smoker alcohol intake: never substance use type: marijuana current occupational status: other Travel in the last 8 weeks: None household members: other housing: other Review of Systems Constitutional Constitutional: Reports system reviewed and no additional complaints, except as documented and Denies headache(s) ENT Ears, Nose, Mouth, and Throat: Denies headache(s) *Genitourinary Genitourinary: Denies abnormal vaginal bleeding *Neurologic Neurologic: Denies headache(s) and Denies other visual disturbances Meds Home Medications and Allergies Home Medications Medication Instructions Recorded Confirmed Type vit,calcium 93-ferrous 1 each PO DAILY Supplement 04/21/21 12/14/21 History fum 9 mg iron-folic acid 267 mg tablet ferrous sulfate 325 mg (65 mg 325 mg PO DAILY Supplement 05/25/21 12/14/21 History iron) tablet clindamycin HCl 300 mg capsule 300 mg PO BID Infection 12/14/21 12/14/21 History New Prescriptions to Start Prescriptions: Allergies Allergy/AdvReac Type Severity Reaction Status Date / Time No Known Allergies Allergy Verified 12/13/21 08:13 Exam Data for Last 24 hours Vital signs and Labs for Last 24 Hours: Temp Pulse Resp BP Pulse Ox 98.0 F 78 18 139/85 100 12/14/21 06:05 12/14/21 06:05 12/14/21 06:05 12/14/21 06:05 12/14/21 06:05 Laboratory Results - last 24 hr 12/14/21 05:30: WBC 15.8 H, RBC 3.90 L, Hgb 11.7 L, Hct 35.7 L, MCV 91.7, MCH 30.1, MCHC 32.8, RDW 13.8, Plt Count 310, MPV 8.3, Neut % (Auto) 77.8, Lymph % (Auto) 16.5, [place] % (Auto) 4.4, Eos % (Auto) 0.6, Baso % (Auto) 0.7, Neut # (Auto) 12.3 H, Lymph # (Auto) 2.6, [place] # (Auto) 0.7, Eos # (Auto) 0.1, Baso # (Auto) 0.1, Total Counted 100, Neutrophils % (Manual) 80 H, Lymphocytes % (Manual) 16, Monocytes % (Manual) 4, Platelet Estimate Normal, RBC Morphology Normal 12/14/21 05:30: Urine Color Yellow, Urine Appearance Clear, Urine pH 7.0, Ur Specific [place] 1.015, Urine Protein Negative, Urine Glucose (UA) Negative, Urine Ketones Negative, Urine Blood Negative, Urine Nitrate Negative, Urine Bilirubin Negative, Urine Urobilinogen 0.2, Ur Leukocyte Esterase Trace, Urine RBC None, Urine WBC Occasional, Ur Squamous Epith Cells Occasional, Urine Bacteria Trace 12/14/21 05:30: Urine Opiates Screen Negative, Urine Methadone Screen Negative, Ur Barbituates Screen Negative, Ur Phencyclidine Scrn Negative, Ur Amphetamines Screen Negative, U Benzodiazepines Scrn Negative, Urine Cocaine Screen Negative, U Marijuana (THC) Screen Negative 12/14/21 05:30: Blood Type B Positive, Antibody Screen Negative 12/14/21 05:35: SARS-CoV-2 (PCR) Not detected, Influenza A Untype (PCR) Not detected, Influenza Type B (PCR) Not detected I & O for Last 24 hours: Intake & Output 12/12/21 12/13/21 12/14/21 12/15/21 11:59 11:59 11:59 11:59 Weight 176 lb Constitutional Constitutional: no acute distress *Routine HEENT Exam Head: Present normocephalic Eye: Absent conjunctival icterus or scleral injection ENT: Present mucous membranes moist *Routine Neck Exam Neck: Present supple *Routine Respiratory Exam Respiratory: Present CTA bilaterally; Absent respiratory dist
--- NOTE | 2021-12-14 12:36 | EXP.LABOR.NO ---
Labor Note Subjective: Date: 12/14/21 Time: 12:36 regular contraction Objective: NST:: Reactive Contractions:: every 2-3 minutes Cervical Dilation:: 3 Effacement:: 70% Station: -2 Membranes: artificially ruptured Comment:: AROM with clear fluid IUPC and FSE placed without difficulty or complication Fetus: monitoring type:: Internal Assessment: Labor progressing?: Yes All Active Problems (Updated 12/14/21 @ 12:34 by Cheyenne Almaguer MD) Anemia affecting (Acute) 39 weeks gestation of (Acute) Mild tetrahydrocannabinol (THC) abuse (Acute) (Acute) Rubella non-immune status, antepartum (Acute) History of severe pre-eclampsia (Acute) Tobacco smoking affecting (Acute) Plan: Comment:: Continue pitocin augmentation Patient declines epidural at this time Continuous monitoring
--- NOTE | 2021-12-14 15:41 | EXP.ANES.CKL ---
[facility] Medical History (Updated 12/14/21 @ 12:34 by Cheyenne Almaguer MD) Mild tetrahydrocannabinol (THC) abuse No significant past medical history Family History Other No significant family history Social History (Updated 12/14/21 @ 06:09 by Jeana Forrest RN) Smoking Status: Current every day smoker alcohol intake: never substance use type: marijuana current occupational status: other Travel in the last 8 weeks: None household members: other housing: other [facility] Anesthesia Checklist Patient Identification Patient Identification: Verbal (Name & ) Structural Data Admitted From: Inpatient Planned Operative Procedure/s: labor epidural Consent for Planned Operative Procedure(s) Verified: Yes Airway Assessment C-Spine Mobility Assessed: Yes TMJ Mobility Assessed: Yes Dentition: Good Dentition Neurological Assessment Level of Consciousness: Awake, Alert and Appropriate Anesthesia Plan Anesthesia Risk discussed: Yes Anesthesia Plan: Verified ASA Class: II Anesthesia Type: Epidural
--- NOTE | 2021-12-14 19:07 | EXP.DN ---
Delivery Note Delivery Date:: 12/14/21 Delivery Time:: 18:29 Anesthesia Type: Epidural Was labor medically induced?: Yes Induction method: per pitocin protocol Gestational age (weeks): 39 delivered prior to 39 weeks?: No Gender: Male at 1 minute: 8 at 5 minutes: 9 Delivery Procedure:: Spontaneous vaginal delivery of vigorous live born male infant over intact perineum. Delivery uncomplicated No nuchal cord No shoulder dystocia with delivery Infant placed in LASHAY immediately after delivery, with standard nursing assessment performed Infant Apgars: 8 & 9 Placenta spontaneously expressed and examined; noted to be complete/intact. Vulva, vagina, and cervix inspected; 1cm laceration vaginal mucosa repaired with 3-0 vicryl EBL: 300 cc All sponge/needle/instrument counts correct at conclusion of procedure Laceration:: vaginal Placental Delivery Description: Spontaneous
[2021-12-15 04:55] VITALS: BP 124/80; PULSE 78; RESP 19; TEMP 36.5; O2SAT 97
[2021-12-15 07:16] LABS: Hematocrit 32.4 % (37.0-47.0); Hemoglobin 10.8 g/dL (12.2-16.2)
[2021-12-15 07:54] VITALS: BP 134/76; PULSE 90; RESP 17; TEMP 36.6; O2SAT 98
--- NOTE | 2021-12-15 08:29 | EXP.ACUTE.PN ---
Subjective *Date: 12/15/21 *Time: 08:29 Interval history: PPD #1 No unusual complaints Ambulating and voiding without difficulty Tolerating regular diet Lochia appropriate Hgb today 10.8 (11.7 at admission) Pain control is sufficient Infant is doing well Medical Exam Vital signs and Labs for Last 24 Hours: Vital Signs Temp Pulse Resp BP Pulse Ox 12/15/21 04:55 97.7 F 78 19 124/80 97 12/14/21 21:00 87 139/78 12/14/21 20:45 88 139/83 12/14/21 20:30 86 136/78 12/14/21 20:15 84 139/76 12/14/21 20:05 86 140/73 12/14/21 19:45 98 H 145/81 H 12/14/21 19:30 107 H 144/75 H 12/14/21 19:15 98.7 F 103 H 19 155/86 H 100 Laboratory Results - last 24 hr 12/15/21 06:42: Hgb 10.8 L, Hct 32.4 L I & O for Labs for Last 24 Hours: Intake & Output 12/12/21 12/13/21 12/14/21 12/15/21 11:59 11:59 11:59 11:59 Weight 176 lb Comment:: No acute distress Comment:: breathing unlabored Comment:: Regular rate, normal peripheral pulses Comments:: abdomen soft, non-tender, non-distended Comment:: uterine fundus firm below umbilicus Comment:: 1+ edema bilateral lower extremities Comment:: no rash Assessment and Plan *Assessment and plan (1) 39 weeks gestation of : Status: Acute Category: Medical Code(s): Z3A.39 - 39 weeks gestation of (2) Anemia affecting : Status: Acute Category: Medical Code(s): O99.019 - Anemia complicating , unspecified trimester (3) Rubella non-immune status, antepartum: Status: Acute Category: Medical Code(s): O09.899 - Supervision of other high risk pregnancies, unspecified trimester; Z28.39 - Other underimmunization status (4) Tobacco smoking affecting : Status: Acute Category: Medical Code(s): O99.330 - Smoking (tobacco) complicating , unspecified trimester (5) Normal spontaneous vaginal delivery: Status: Acute Category: Medical Code(s): O80 - Encounter for full-term uncomplicated delivery Plan Routine care FeSO4 supplementation MMR will be offered to patient for rubella non-immune status Tobacco cessation Anticipate discharge home tomorrow
--- NOTE | 2021-12-15 11:15 | SW/DCPLANNER ---
Addendum entered by Cathy Zavala 12/20/21 11:10: Infant cord screen is negative for this patient. Original Note: I received a referral for this patient regarding: THC positive at beginning of . Patient tested positive for THC on 05/15/21. The following dates patient urine drug screen is negative: 10/24/21, 10/30/21, 12/07/21 and 12/14/21. Infant (Tina Edwards) drug screen at (12/15/21) is negative. Infant's father (Chava Edwards 07/20/97) was present during my evaluation. Patient, Chava, , other child (Willem Villalobos) and patient's parents (Cassie and Sohailkeon Campa) will reside at [address] [place] [address] in [place] [address]. Patient's contact number is [phone]. Patient is currently established with [facility] and is not interested in HANDS. Patient has the following items at home: crib, carseat, clothing, diapers and will be breast feeding. Patient is expected to discharge tomorrow 12/16/21. Patient has no further needs at this time. OB nursing staff stated that patient/father are appropriate with .
[2021-12-15 15:43] VITALS: BP 126/65; PULSE 87; RESP 17; TEMP 36.8; O2SAT 97
[2021-12-16 08:23] VITALS: BP 135/80; PULSE 77; RESP 18; TEMP 36.7; O2SAT 99
--- NOTE | 2021-12-16 12:41 | EXP.DC.SUM ---
General Admission date:: 12/14/21 Discharge date: 12/16/21 HPI HPI HPI: 26 yo @ 39 03/03 JESSICA 12/20/21; dating by 07/01 ultrasound care at [facility]--Dr. Almaguer complicated by tobacco and THC abuse, maternal anemia and rubella non-immune status Previous delivery at 36 weeks was secondary to induction of labor due to preeclampsia Hospital Course Hospital Course Hospital Course: course uneventful She is discharged home on PPD #2 in stable condition She is tolerating a regular diet She is ambulating and voiding without difficulty Lochia is appropriate and she is asymptomatic with [id number] anemia Hgb 10.8 (11.7 at admission) She declines pain medication Rx at discharge Exam Data for Last 24 hours Vital signs and Labs for Last 24 Hours: Temp Pulse Resp BP Pulse Ox 98.0 F 77 18 135/80 99 12/16/21 08:23 12/16/21 08:23 12/16/21 08:23 12/16/21 08:23 12/16/21 08:23 I & O for Last 24 hours: Intake & Output 12/14/21 12/15/21 12/16/21 12/17/21 11:59 11:59 11:59 11:59 Output Total 350 / 350 Balance -350 / -350 Weight 176 lb Constitutional Constitutional: no acute distress *Routine HEENT Exam Head: Present normocephalic Eye: Absent conjunctival icterus or scleral injection ENT: Present mucous membranes moist *Routine Neck Exam Neck: Present supple *Routine Respiratory Exam Respiratory: Present CTA bilaterally *Routine Cardiovascular Exam Cardiovascular: Present RRR *Routine Abdominal Exam Abdominal: Present soft; Absent tenderness or distended *Routine Rectal Exam Patient deferred: visual exam and digital exam *Routine Exam Patient deferred: external exam Comments: Fundus firm below umbilicus *Routine Extremities Exam Extremities: Present edema *Routine Neurological Exam Neurological: Present alert and oriented X3 Routine Psychiatric Exam Psychiatric: Present normal affect; Absent depressed DS: Diagnosis Discharge Diagnosis (1) 39 weeks gestation of : Status: Acute (2) Anemia affecting : Status: Acute (3) Rubella non-immune status, antepartum: Status: Acute (4) Tobacco smoking affecting : Status: Acute (5) Normal spontaneous vaginal delivery: Status: Acute Meds Home Medications and Allergies Home Medications Medication Instructions Recorded Confirmed Type vit,calcium 93-ferrous 1 each PO DAILY Supplement 04/21/21 12/14/21 History fum 9 mg iron-folic acid 267 mg tablet ferrous sulfate 325 mg (65 mg 325 mg PO DAILY Supplement 05/25/21 12/14/21 History iron) tablet clindamycin HCl 300 mg capsule 300 mg PO BID Infection 12/14/21 12/14/21 History New Prescriptions to Start Prescriptions: Allergies Allergy/AdvReac Type Severity Reaction Status Date / Time No Known Allergies Allergy Verified 12/13/21 08:13 Discharge Plan Disposition Patient Disposition: Home, Self-Care Discharge Order Discharge Orders: Discharge Order (Routine); Ordered 12/16/21 Ordered By: Cheyenne Almaguer Follow up Plan Follow up with: Cheyenne Almaguer MD [Staff Physician] - 12/28/21 10:00 am Prescriptions/Medication Reconciliation: New acetaminophen 325 mg Tablet 650 mg PO Q4HP PRN (Reason: Mild Pain) Qty: 24 0RF ibuprofen 400 mg Tablet 800 mg PO Q6HP PRN (Reason: Mild To Moderate Pain) Qty: 24 0RF Continued ferrous sulfate 325 MG tablet 325 mg PO DAILY vit 93-iron fum-folic 1 EACH tablet 1 each PO DAILY Discontinued clindamycin HCl 300 mg capsule 300 mg PO BID Problem Reconciliation Problems Reviewed?: Yes Patient Discharge Instructions Additional Instructions: Nothing in the vagina or tub baths for 6 weeks Drink plenty of fluids Patient Instructions: Depression, Hemorrhage, DI for Labor and Delivery, Vaginal , DI for Pre-eclampsia, [facility] Post Discharge Ins
== END 2021-12-16 13:22 | disposition home or self-care (01) | DRG 807 ==
PROVIDERS: Admitting Provider Obstetrics & Gynecology; PCP Physician Assistant; Visit Provider Obstetrics & Gynecology
DX: O99.334 Smoking (tobacco) complicating childbirth (principal); Z37.0 Single live birth; Z3A.39 39 weeks gestation of pregnancy; F17.210 Nicotine dependence, cigarettes, uncomplicated; O99.324 Drug use complicating childbirth; F12.10 Cannabis abuse, uncomplicated; O70.0 First degree perineal laceration during delivery; O99.02 Anemia complicating childbirth; Z71.6 Tobacco abuse counseling
CPT/HCPCS: 59409; 36415; 59025; 80305; 81001; 85007; 85014; 85018; 85025; 86850; 94761; C1758; C9803; G0283; U0003; U0005

== ENCOUNTER 2022-04-16 18:20 | Emergency (ER) | payer BC, MEDICAID, SELFPAY ==
[2022-04-16 18:55] VITALS: BP 147/95; PULSE 76; RESP 18; TEMP 36.7; O2SAT 97; BMI 20.9
--- NOTE | 2022-04-16 18:55 | EXP.UTC ---
Discharge Plan Disposition Patient Disposition: Home, Self-Care Condition: Good Prescriptions Prescriptions: New methylprednisolone 4 mg Tablets,Dose Pack 4 mg PO DIRECTED Qty: 21 0RF hydrocortisone [Cortizone-10] 1 % cream 1 applic topical BIDP PRN (Reason: Itching) Qty: 28.4 0RF Rx Instructions: wash off before breast feeding if used on or around your breast No Action Nexplanon 68 mg implant subdermal valacyclovir 500 mg tablet 500 mg PO BID Qty: 20 3RF Rx Instructions: 1 tab by mouth, twice daily as needed fluconazole 150 mg tablet 150 mg PO ONCE Qty: 2 0RF Rx Instructions: take 1 tablet by mouth, may repeat second dose in 72 hours Referrals Follow up/Referrals: Dorinda Walker PA [Primary Care Provider] - See instructions Activity Restrictions/Add. Instructions Additional Instructions/Restrictions: Try to identify and avoid contact with the offending substance. Follow up with your regular doctor. GO TO THE ER FOR ANY WORSENING SYMPTOMS OR CONCERNS Clinical Impressions Clinical Impression: Contact dermatitis Instructions Patient Instructions: DI for Contact Dermatitis, Methylprednisolone Discharge ED Provider: Alireza Rocha [facility] General Stated complaint: rash on chest Time Seen by Provider: 04/16/22 18:54 History of Present Illness Provider Complaint: She states that for the past 2 days she has had a rash between her breast. She is currently , but she denies any involvment of her nipples. She also had a rash on her left arm and her abdomen. Related Data Home Medications Medication Instructions Recorded Confirmed etonogestrel 68 mg subdermal subdermal 04/17/22 04/17/22 implant (Nexplanon) Previous Rx's Medication Instructions Recorded hydrocortisone 1 % topical cream 1 applic topical BIDP PRN Itching 04/16/22 (Cortizone-10) #28.4 grams methylprednisolone 4 mg tablets in 4 mg PO DIRECTED #21 tabs 04/16/22 a dose pack fluconazole 150 mg tablet 150 mg PO ONCE 2 doses #2 tabs 04/17/22 valacyclovir 500 mg tablet 500 mg PO BID #20 tabs 04/17/22 Allergies Allergy/AdvReac Type Severity Reaction Status Date / Time No Known Allergies Allergy Verified 04/17/22 09:55 [facility] Disclaimer: The information contained in this section may have been updated after the patient was seen, as this information can be updated by other users. Medical History Encounter for female control History of severe pre-eclampsia Mild tetrahydrocannabinol (THC) abuse No significant past medical history Surgical History History of tonsillectomy History of tympanostomy tube placement Family History Other No significant family history Social History Smoking Status: Current every day smoker alcohol intake: never substance use type: marijuana current occupational status: other Travel in the last 8 weeks: None household members: other housing: other ROS Obtained: Yes All systems reviewed & no additional complaints except as documented Constitutional Constitutional: Denies chills and Denies fever(s) Eyes Eyes: Denies eye discharge ENT Ears, Nose, Mouth, and Throat: Denies dizziness, Denies otalgia and Denies sore throat Cardiovascular Cardiovascular: Denies chest pain Respiratory Respiratory: Denies shortness of breath, Denies chest congestion, Denies cough, Denies stridor and Denies wheezing Gastrointestinal Gastrointestingal: Denies nausea or vomiting Musculoskeletal Musculoskeletal: Reports system reviewed and no additional complaints, except as documented and Denies arthralgias Integumentary/Breasts Skin/Breast: Reports as per HPI and Reports rash Neurologic Neurologic: Denies d
[2022-04-16 19:43] VITALS: BP 147/95; PULSE 76; RESP 18; TEMP 36.7; O2SAT 97
== END 2022-04-16 19:44 | disposition home or self-care (01) ==
PROVIDERS: Emergency Provider Nurse Practitioner Family; PCP Physician Assistant
DX: L25.9 Unspecified contact dermatitis, unspecified cause (principal)
CPT/HCPCS: 99212; 99213; G0463

== ENCOUNTER 2022-04-17 10:52 | Outpatient (CLI) | payer BC, MEDICAID, SELFPAY ==
[2022-04-17 11:22] VITALS: BP 147/97; PULSE 74; RESP 18; O2SAT 99
[2022-04-17 11:36] VITALS: BP 137/89; PULSE 76; RESP 18; O2SAT 99
[2022-04-18 14:38] LABS: Varicella-Zoster Ab, IgM <0.91 index (0.00-0.90)
== END 2022-04-17 11:37 | disposition home or self-care (01) ==
LOC: LAB 10:53
PROVIDERS: PCP Physician Assistant; Visit Provider Obstetrics & Gynecology
DX: L25.9 Unspecified contact dermatitis, unspecified cause (principal)
CPT/HCPCS: 36415; 86787; 96372; J1040

== ENCOUNTER → 2022-05-28 14:25 | Outpatient (CLI) | payer BC, MEDICAID, SELFPAY ==
--- NOTE | 2022-05-28 14:25 | US_ITS ---
PROCEDURE INFORMATION: Exam: US Left Breast, Complete Exam date and time: 05/28/2022 3:39 PM Age: 26 years old Clinical indication: Itching nipple; Prior surgery; Surgery date: 3-7 days post-operative; Left breast pain TECHNIQUE: Imaging protocol: Complete ultrasound of all four quadrants of the left breast and the retroareolar regions, including ultrasound of the axilla when performed. COMPARISON: No relevant prior studies available. FINDINGS: Breast: Sonographic images of the left breast including the retroareolar region, all 4 quadrants and the axilla do not demonstrate any solid or cystic masses. No architectural distortion or acoustical shadowing. No skin thickening or axillary adenopathy. IMPRESSION: No sonographic evidence of malignancy. Further evaluation of a palpable abnormality should be based on clinical grounds regardless of radiographic findings or lack thereof. Dermatologic consultation for potential skin lesion as the etiology for the nipple itchiness is recommended ASSESSMENT: BI-RADS Category 1: Negative
== END ==
PROVIDERS: PCP Physician Assistant; Visit Provider Student in an Organized Health Care Education/Training Program
DX: N64.4 Mastodynia (principal)
CPT/HCPCS: 76641

== ENCOUNTER → 2022-05-28 16:57 | Outpatient (CLI) | payer BC, MEDICAID, SELFPAY | LOC: LAB.DROPOF 16:57 | PROVIDERS: Visit Provider Obstetrics & Gynecology | DX: N64.9 Disorder of breast, unspecified (principal); B95.7 Other staphylococcus as the cause of diseases classified elsewhere | CPT/HCPCS: 87070; 87077; 87186; 87205 ==

== ENCOUNTER 2022-07-28 20:06 | Emergency (ER) | payer BC, MEDICAID, SELFPAY ==
[2022-07-28 20:12] VITALS: BP 132/85; PULSE 71; RESP 18; TEMP 37.1; O2SAT 98; BMI 20.5
[2022-07-28 20:26] VITALS: BP 132/85; PULSE 76; RESP 13; TEMP 36.8; O2SAT 98
== END 2022-07-28 20:28 | disposition left against medical advice (07) ==
PROVIDERS: Emergency Provider Emergency Medicine; PCP Physician Assistant
DX: Z53.21 Procedure and treatment not carried out due to patient leaving prior to being seen by health care provider (principal)
CPT/HCPCS: 99211

== ENCOUNTER 2022-10-09 08:00 | Emergency (ER) | payer BC, MEDICAID, SELFPAY ==
[2022-10-09 08:00] VITALS: BP 112/76; PULSE 83; RESP 18; TEMP 36.6; O2SAT 100; BMI 20.3
--- NOTE | 2022-10-09 08:36 | EXP.UTC ---
Discharge Plan Disposition Patient Disposition: Home, Self-Care Condition: Good Prescriptions Prescriptions: New amoxicillin 500 mg capsule 500 mg PO TID 10 Days Qty: 30 0RF No Action Nexplanon 68 mg implant subdermal sertraline [Zoloft] 50 mg tablet 50 mg PO DAILY Qty: 30 2RF clindamycin HCl 300 mg capsule 300 mg PO Q6H 7 Days Qty: 28 0RF Referrals Follow up/Referrals: Dorinda Walker PA [Primary Care Provider] - See instructions Activity Restrictions/Add. Instructions Additional Instructions/Restrictions: *Monitor Temp, Over the counter Motrin or Tylenol as directed/as needed Tylenol every 4 hours and Motrin every 6 hours (as long as your family doctor has told you that you can take it) for fever or pain. and straight to ER if unable to lower temp less than 101.0 after medication given *Warm salt water gargles may help to soothe the throat *Throat Lozenges? *Warm fluids like tea with honey may help to soothe the throat? *Sleep elevated *Humidifier/Vaporizer Follow up IMMEDIATELY for new or worsening symptoms or no Noticeable improvement over the next 48-72 hours. 911 for difficulty breathing or swallowing Clinical Impressions Clinical Impression: Otitis media Qualifiers: Otitis media type: unspecified Laterality: left Qualified Code(s): H66.92 - Otitis media, unspecified, left ear Instructions Patient Instructions: Middle Ear Infection Discharge ED Provider: Kina Real [facility] General Stated complaint: runny nose, cough, h/a, left ear pain Mode of Arrival: Ambulatory Source of Information: Patient Limitations: No Limitations Time Seen by Provider: 10/09/22 08:36 Description of Symptoms (Recalled from Triage Doc. by RN): Patient reports right ear pain, congestion, cough, and feeling faint for 2 days. HEENT Symptoms (Recalled from RN notes): Yes Resp Symptoms (Recalled from RN notes): No Skin Symptoms (Recalled from RN notes): No MS Symptoms (Recalled from RN notes): No Functional Status (Recalled from RN notes): wnl History of Present Illness Provider Complaint: Patient states that she hasnt been feeling well for several days States that she has been having ear pain/pressure that is going into her throat States that her ear will throb when she swallows nasal congestion and cough States that she has continued to get worse so today she came in to get checked Related Data Home Medications Medication Instructions Recorded Confirmed etonogestrel 68 mg subdermal subdermal 04/17/22 06/01/22 implant (Nexplanon) Previous Rx's Medication Instructions Recorded sertraline 50 mg tablet (Zoloft) 50 mg PO DAILY #30 tabs 05/28/22 clindamycin HCl 300 mg capsule 300 mg PO Q6H 7 days #28 caps 06/01/22 amoxicillin 500 mg capsule 500 mg PO TID 10 days #30 caps 10/09/22 Allergies Allergy/AdvReac Type Severity Reaction Status Date / Time No Known Allergies Allergy Verified 07/28/22 20:18 Worker's Comp Is this a Worker's Comp case?: No [facility] Disclaimer: The information contained in this section may have been updated after the patient was seen, as this information can be updated by other users. Medical History Anxiety Encounter for female control History of severe pre-eclampsia Lesion of left nipple Mild tetrahydrocannabinol (THC) abuse Nipple dermatitis No significant past medical history Surgical History History of tonsillectomy History of tympanostomy tube placement Family History Other No significant family history Social History Smoking Status: Current every day smoker alcohol intake: never substance use type: marijuana current occupational status: ot
[2022-10-09 08:57] VITALS: BP 112/76; PULSE 83; RESP 18; TEMP 36.6; O2SAT 100
== END 2022-10-09 08:58 | disposition home or self-care (01) ==
PROVIDERS: Emergency Provider Nurse Practitioner; PCP Physician Assistant
DX: R51.9 Headache, unspecified (principal); H66.92 Otitis media, unspecified, left ear; F41.9 Anxiety disorder, unspecified; F17.200 Nicotine dependence, unspecified, uncomplicated
CPT/HCPCS: 99212; 99214; G0463

== ENCOUNTER 2022-10-17 12:06 | Emergency (ER) | payer BC, MEDICAID, SELFPAY ==
[2022-10-17] VITALS (7 sets, daily range): BP systolic 112–145; BP diastolic 66–91; PULSE 69–87; RESP 20; TEMP 36.8; O2SAT 97–100; BMI 20.9
--- NOTE | 2022-10-17 13:01 | PC.NURSE ---
rounded on pt she was sleeping in bed, call light at bs
--- NOTE | 2022-10-17 13:10 | [facility].EDGENADL ---
Discharge Plan Disposition Patient Disposition: Home, Self-Care Condition: Good Prescriptions Prescriptions: New methocarbamol 500 mg tablet 500 mg PO Q8H PRN (Reason: muscle spasm) 10 Days Qty: 30 0RF No Action Nexplanon 68 mg implant subdermal sertraline [Zoloft] 50 mg tablet 50 mg PO DAILY Qty: 30 2RF clindamycin HCl 300 mg capsule 300 mg PO Q6H 7 Days Qty: 28 0RF amoxicillin 500 mg capsule 500 mg PO TID 10 Days Qty: 30 0RF Referrals Follow up/Referrals: Dorinda Walker PA [Primary Care Provider] - See instructions Activity Restrictions/Add. Instructions Additional Instructions/Restrictions: Take Tylenol and ibuprofen as needed at home. You have also been prescribed Robaxin which is a gentle muscle relaxer. Take this if needed for neck/back pain. Monitor yourself for new or worsening symptoms. This may make you sleepy, do not drive after taking it. Follow-up with your primary care physician in the next 2 days for reassessment. Return to the emergency department with new or worsening symptoms. Clinical Impressions Clinical Impression: Muscle spasm Headache Qualifiers: Headache type: tension-type Discharge ED Provider: Jorge Garcia General Adult HPI General Chief complaint: Upper Respiratory Infection Stated complaint: neck pain, no accident, fever, chills Time Seen by Provider: 10/17/22 12:49 Mode of Arrival: Ambulatory Source of Information: Patient Limitations: No Limitations Description of Symptoms (Recalled from ER Triage Doc. by RN): pt to ed c/o neck pain/headache x2 weeks that have developed into a fever, body aches and chills last night. pt states she just feels awful. History of Present Illness HPI narrative: This 27-year-old female presents to the emergency department with pain in the back/neck and headache for 2 weeks. In the last 24 hours she has also developed other body aches, chills, and nausea. Patient has subjective fever at home. She is not having any vomiting. Patient currently has menstrual spotting. Patient states the muscles of the back of her neck are tender to the touch and so she thinks she may be has meningitis. She says the pain in her neck has been giving her headache as well. Related Data Home Medications Medication Instructions Recorded Confirmed etonogestrel 68 mg subdermal subdermal 04/17/22 06/01/22 implant (Nexplanon) Previous Rx's Medication Instructions Recorded sertraline 50 mg tablet (Zoloft) 50 mg PO DAILY #30 tabs 05/28/22 clindamycin HCl 300 mg capsule 300 mg PO Q6H 7 days #28 caps 06/01/22 amoxicillin 500 mg capsule 500 mg PO TID 10 days #30 caps 10/09/22 methocarbamol 500 mg tablet 500 mg PO Q8H PRN muscle spasm 10 10/17/22 days #30 tabs Allergies Allergy/AdvReac Type Severity Reaction Status Date / Time No Known Allergies Allergy Verified 07/28/22 20:18 PFSH PFS Disclaimer: The information contained in this section may have been updated after the patient was seen, as this information can be updated by other users. Medical History Anxiety Encounter for female control History of severe pre-eclampsia Lesion of left nipple Mild tetrahydrocannabinol (THC) abuse Nipple dermatitis No significant past medical history Surgical History History of tonsillectomy History of tympanostomy tube placement Family History Other No significant family history Social History Smoking Status: Never smoker alcohol intake: never substance use type: marijuana current occupational status: other Travel in the last 8 weeks: None household members: other housing: other ROS Obtained: Yes All systems reviewed & no additional complaints e
[2022-10-17 13:20] LABS: Microscopic, Urine URINE MICROSCOPIC (MICROSCOPIC)
[2022-10-17 13:27] LABS: Appearance,Urine CLEAR (Clear); Bilirubin,Urine Negative (Negative); Blood, Urine TRACE-I (Negative); Color,Urine YELLOW (Yellow); Glucose,Urine (UA) Negative (Negative); Ketones,Urine Negative (Negative); Leukocyte Esterase,Urine Negative (Negative); Nitrate,Urine Negative (Negative); PH,Urine 7.5 (5.0-8.5); Protein,Urine Negative (Negative); Urobilinogen,Urine 0.2 EU/dl (0.2)
[2022-10-17 13:28] LABS: Urine Pregnancy, HCG Qual. Negative (Negative)
[2022-10-17 13:47] LABS: Squamous Epithelial Cell,Urine Occasional #/hpf (0-5); WBC,Urine Occasional #/hpf (0-3)
--- NOTE | 2022-10-17 14:40 | PC.NURSE ---
pt resting in bed, nothing needed at this time,call light at bs
== END 2022-10-17 15:14 | disposition home or self-care (01) ==
PROVIDERS: Emergency Provider Emergency Medicine; PCP Physician Assistant
DX: M62.838 Other muscle spasm (principal); M54.2 Cervicalgia; R51.9 Headache, unspecified
CPT/HCPCS: 81001; 81025; 99284

== ENCOUNTER → 2022-11-01 12:00 | Outpatient (CLI) | payer BC, MEDICAID, SELFPAY ==
[2022-11-01 18:52] LABS: Basophils # 0.1 K/mm3 (0-0.2); Basophils % 0.6 % (0.1-2.0); Eosinophils # 0.3 K/mm3 (0.0-0.4); Eosinophils % 2.1 % (0.1-12.0); Hematocrit 43.5 % (37.0-47.0); Hemoglobin 13.8 g/dL (12.2-16.2); Lymphocytes # 2.7 K/mm3 (0.7-4.5); Lymphocytes % 22.7 % (10-50); Mean Corpuscular HGB Conc 31.9 g/dL (31.8-35.4); Mean Corpuscular Hemoglobin 29.8 pg (27.0-31.2); Mean Corpuscular Volume 93.5 fl (81-99); Mean Platelet Volume 8.4 fl (7.4-10.4); Monocytes # 0.5 K/mm3 (0.1-1.0); Neutrophils # 8.5 K/mm3 (1.8-7.8); Neutrophils % 70.6 % (37.0-80.0); Platelet Count 361 K/mm3 (142-424); Red Blood Count 4.65 M/mm3 (4.20-5.40); Red Cell Distribution Width 12.8 % (11.5-17.5)
[2022-11-01 18:58] LABS: Alanine Aminotransferase 18 U/L (12-78); Albumin Level 4.6 g/dl (3.5-5.0); Albumin/Globulin Ratio 1.5 (1.1-1.8); Alkaline Phosphatase 105 U/L (38-126); Anion Gap 14.3 mEq/L (5-15); Aspartate Amino Transferase 24 U/L (14-36); Bilirubin,Total 0.8 mg/dl (0.2-1.3); Blood Urea Nitrogen 12 mg/dl (7-17); Calcium 9.9 mg/dl (8.4-10.2); Carbon Dioxide 28 mmol/L (22.0-30.0); Chloride 102 mmol/L (98-107); Cholesterol 133 mg/dl (140-200); Estimated Glomerular Filt Rate 121 ml/min (>60); GFR (African American) 146 ML/MIN (>60); Glucose 78 mg/dl (74-100); HDL Cholesterol 67 mg/dl (40-60); Potassium 5.3 mmoL/L (3.5-5.1); Sodium 139 mmol/L (136-145); Total Protein,Serum 7.6 g/dl (6.3-8.2); Triglycerides 79 mg/dl (30-150); VLDL Cholesterol 16 mg/dL (0-40)
[2022-11-01 19:09] LABS: Direct LDL Cholesterol 52.41 mg/dL (100-129)
[2022-11-01 19:17] LABS: 25-OH Vitamin D, Total 21.8 ng/mL (30-100)
[2022-11-01 19:30] LABS: Thyroid Stimulating Hormone 2.42 uIU/mL (0.465-4.68)
== END ==
PROVIDERS: PCP Physician Assistant; Visit Provider Physician Assistant
DX: R53.83 Other fatigue (principal); E55.9 Vitamin D deficiency, unspecified; Z79.899 Other long term (current) drug therapy
CPT/HCPCS: 80053; 80061; 82306; 84443; 85025

== ENCOUNTER 2023-08-09 00:18 | Emergency (ER) | payer BC, MEDICAID, SELFPAY ==
[2023-08-09 00:19] VITALS: BP 143/110; PULSE 98; RESP 20; TEMP 36.9; O2SAT 99; BMI 21.4
[2023-08-09 00:30] VITALS: BP 136/97; PULSE 106; O2SAT 97
--- NOTE | 2023-08-09 00:34 | HMH.EDGENADL ---
Discharge Plan Disposition Patient Disposition: Home, Self-Care Condition: Good Prescriptions Prescriptions: New sulfamethoxazole-trimethoprim [Bactrim DS] 800-160 mg tablet 1 tab PO BID 10 Days Qty: 20 0RF ketorolac 10 mg tablet 10 mg PO Q8H PRN (Reason: pain) Qty: 10 0RF ondansetron 4 mg tablet,disintegrating 4 mg PO Q8H PRN (Reason: nausea and vomiting) 4 Days Qty: 12 0RF phenazopyridine [Pyridium] 200 mg tablet 200 mg PO Q8H PRN (Reason: pain) Qty: 10 0RF No Action Nexplanon 68 mg implant subdermal cholecalciferol (vitamin D3) 50 mcg (2,000 unit) capsule 50 mcg PO DAILY Qty: 90 3RF ergocalciferol (vitamin D2) 1,250 mcg (50,000 unit) capsule 1,250 mcg PO WEEKLY Qty: 14 3RF Lo Loestrin Fe 1 mg-10 mcg (24)/10 mcg (2) tablet 1 tab PO DAILY Qty: 28 2RF valacyclovir [Valtrex] 1 gram tablet 1,000 mg PO BID Qty: 60 2RF Referrals Follow up/Referrals: Marianna Pierce DO [Staff Physician] - See instructions Bishop Acuna MD [Staff Physician] - See instructions Dorinda Walker PA [Primary Care Provider] - See instructions Nkechi Yu DO [Staff Physician] - See instructions Activity Restrictions/Add. Instructions Additional Instructions/Restrictions: You were evaluated in the emergency department today and diagnosed with a urinary tract infection and an ovarian cyst. It is important to note that if your pain returns or becomes much worse, you should come back to the emergency department right away for an ultrasound of your ovary, as ovarian cysts but you at a risk for ovarian torsion, or decreased blood flow to the ovary. This is a surgical emergency and can result in loss of an ovary. Please contact gynecology to schedule an outpatient appointment for follow-up with regards to this ovarian cyst. resident care supervisor your prescriptions at the pharmacy and take them as prescribed for your urinary tract infection. Toradol is an anti-inflammatory to take as needed for pain. Do not take other NSAIDs, such as ibuprofen, while taking this medication. In addition to these medications, you may also take Tylenol every 4-6 hours as needed for pain. Return to the emergency department for new or worsening symptoms. Clinical Impressions Clinical Impression: Pyelonephritis, Cyst of left ovary Stand Alone Forms Stand Alone Forms: Work/School Release Instructions Patient Instructions: DI for Kidney Infection, DI for Acute Abdominal Pain Discharge ED Provider: Brielle Cruz General Adult HPI General Chief complaint: Abdominal Pain Stated complaint: pain with urination Time Seen by Provider: 08/09/23 00:22 Mode of Arrival: Ambulatory Source of Information: Patient Limitations: No Limitations Description of Symptoms (Recalled from ER Triage Doc. by RN): Pt ambulatory to ED with c/o severe lowere abd, lower back, and bilat flank pain that awoke her from her sleep approx 20 mins before arrival. Pt reports she was dx with UTI 3 days ago, hasnt picked up abx from pharmacy. Pt has hx of frequent utis. Pt reports she is currently on menstrual cycle. Reports nausea at this time. History of Present Illness HPI narrative: This patient is a 27-year-old female with a history of recurrent urinary tract infections presenting to the emergency department for evaluation with concern for urinary tract infection type symptoms. Patient states that she was diagnosed with a UTI approximately 3 to 4 days ago, but she never picked up her antibiotics. Initially, she was only having pelvic pain, dysuria, and urinary frequency. Tonight, bilateral flank pain and lower abdominal/low back pain woke her up from sleep. She also states that she feels extremely nauseated. The pain is severe and constant. Nothing seems to make it better or worse. No fever, vomiting, changes in bowel movements, abnormal vaginal discharge, or vaginal bleeding noted. Related Data Home Medications Medication Instructions Recorded Confirmed etonogestrel 68 mg subdermal subdermal 04/17/22 11/01/22 implant (Nexplanon) Previous Rx's Medication Instructions Recorded cholecalciferol (vitamin D3) 50 50 mcg PO DAILY #90 caps 11/07/22 mcg (2,000 unit) capsule ergocalciferol (vitamin D2) 1,250 1,250 mcg PO WEEKLY #14 caps 11/07/22 mcg (50,000 unit) capsule norethindrone 1 mg-ethinyl 1 tab PO DAILY #28 tabs 11/15/22 estradiol 10 mcg (24)-iron 10 mcg(2) tablet (Lo Loestrin Fe) valacyclovir 1 gram tablet 1,000 mg PO BID #60 tabs 06/20/23 (Valtrex) ketorolac 10 mg tablet 10 mg PO Q8H PRN pain #10 tabs 08/09/23 ondansetron 4 mg disintegrating 4 mg PO Q8H PRN nausea and 08/09/23 tablet vomiting 4 days #12 tabs phenazopyridine 200 mg tablet 200 mg PO Q8H PRN pain #10 tabs 08/09/23 (Pyridium) sulfamethoxazole 800 1 tab PO BID 10 days #20 tabs 08/09/23 mg-trimethoprim 160 mg tablet (Bactrim DS) Allergies Allergy/AdvReac Type Severity Reaction Status Date / Time No Known Allergies Allergy Verified 08/09/23 00:33 [facility] Disclaimer: The information contained in this section may have been updated after the patient was seen, as this information can be updated by other users. Medical History Anxiety Lesion of left nipple Nipple dermatitis Encounter for female control No significant past medical history History of severe pre-eclampsia Mild tetrahydrocannabinol (THC) abuse Surgical History History of tympanostomy tube placement History of tonsillectomy Family History Other No significant family history Social History Smoking Status: Current every day smoker alcohol intake: never substance use type: marijuana current occupational status: other Travel in the last 8 weeks: None household members: other housing: other ROS Obtained: Yes All systems reviewed & no additional complaints except as documented Physical Exam General General appearance: alert and anxious Comment: Anxious and crying Head Head exam: atraumatic and normocephalic Eye Eye exam: Present normal appearance, PERRL and EOMI ENT ENT exam: Present normal exam, normal oropharynx, mucous membranes moist and normal external ear exam Neck Neck exam: Present normal inspection, full ROM and trachea midline; Absent tenderness Chest Chest inspection: Present normal inspection and symmetric chest wall rise; Absent tenderness Respiratory Respiratory exam: Present normal lung sounds bilaterally; Absent respiratory distress, wheezes, stridor or accessory muscle use Cardiovascular Cardiovascular exam: Present regular rate and normal rhythm Abdominal Exam Abdominal exam: Present soft and tenderness (Suprapubic); Absent distention, guarding, rebound or rigidity Extremities Exam Extremities exam: Present normal inspection, full ROM and normal capillary refill; Absent tenderness or edema Back Exam Back exam: Present normal inspection and full ROM; Absent tenderness Neurological Exam Neurological exam: Present alert, oriented X3, CN II-XII intact and normal gait; Absent motor sensory deficit Psychiatric Psychiatric exam: Present anxious Skin Skin exam: Present warm and dry Medical Decision Making Medical Records Medical records reviewed: Yes I reviewed the patient's medical records. [place] Inquiry Pt receiving controlled substance: No Vital Signs: 08/09/23 00:19 08/09/23 00:30 Temperature 98.5 F Temperature Source Oral Pulse Rate 106 H Pulse Rate [Left Radial] 98 H Respiratory Rate 20 Blood Pressure 136/97 H Blood Pressure [Right Arm] 143/110 H Blood Pressure Mean [Right Arm] 121 Blood Pressure Source [Right Arm] Automatic Cuff Blood Pressure Position [Right Arm] Sitting 02 Sat by Pulse Oximetry 99 97 Oxygen Delivery Method Room Air Lab Data Lab results reviewed: Yes I reviewed the patient's lab results. Lab Results 08/09/23 00:26: WBC 17.2 H, RBC 4.71, Hgb 14.7, Hct 45.5, MCV 96.8, MCH 31.2, MCHC 32.2, RDW 13.2, Plt Count 335, MPV 7.9, Neut % (Auto) 78.1, Lymph % (Auto) 16.3, [place] % (Auto) 4.0, Eos % (Auto) 1.0, Baso % (Auto) 0.6, Neut # (Auto) 13.5 H, Lymph # (Auto) 2.8, [place] # (Auto) 0.7, Eos # (Auto) 0.2, Baso # (Auto) 0.1, Total Counted 100, Neutrophils % (Manual) 75, Lymphocytes % (Manual) 20, Monocytes % (Manual) 3, Eosinophils % (Manual) 2, Platelet Estimate Normal, RBC Morphology Normal, Sodium 141, Potassium 4.2, Chloride 102, Carbon Dioxide 29, Anion Gap 14.2, BUN 15, Creatinine 0.80, Estimated Creat Clear 118, Estimated GFR 87, Est GFR ( Amer) 105, Glucose 98, Calcium 9.6, Total Bilirubin 0.7, AST 22, ALT 22, Alkaline Phosphatase 59, Total Protein 7.3, Albumin 4.4, Globulin 2.9, Albumin/Globulin Ratio 1.5 08/09/23 00:30: Urine Color Yellow, Urine Appearance Clear, Urine pH 6.5, Ur Specific [place] 1.020, Urine Protein 2+, Urine Glucose (UA) Negative, Urine Ketones Negative, Urine Blood 3+, Urine Nitrate Negative, Urine Bilirubin Negative, Urine Urobilinogen 0.2, Ur Leukocyte Esterase 2+ A, Urine RBC 10-20, Urine WBC 20-50, Ur Squamous Epith Cells Occasional, Amorphous Sediment 1+, Urine Bacteria 1+, Urine HCG, Qual Negative 08/09/23 00:26 08/09/23 00:26 Orders (Tests/Meds): ED MEDICATIONS Generic Name Dose Route Start Last Admin Trade Name Freq PRN Reason Stop Dose Admin Sodium Chloride 10 ml 08/09/23 01:10 08/09/23 01:11 Sodium Chloride 0.9% 10ml Syr (Rad Only) IV 09/08/23 01:09 10 ml NEEDED PRN Administration Maintain IV Site Discontinued Medications Generic Name Dose Route Start Last Admin Trade Name Freq PRN Reason Stop Dose Admin Acetaminophen 1,000 mg 08/09/23 00:29 08/09/23 00:37 Acetaminophen 1,000mg/100ml Vial IV 08/09/23 00:30 1,000 mg ONCE ONE Administration Lactated Ringer's 1,000 mls @ 999 mls/hr 08/09/23 00:29 08/09/23 00:36 Lactated Ringer's 1000 Ml Bag IV 08/09/23 01:29 999 mls/hr .Q1H1M ONE Administration Ceftriaxone Sodium 2 gm/ 100 mls @ 200 mls/hr 08/09/23 01:29 08/09/23 01:33 Sodium Chloride IV 08/09/23 01:58 200 mls/hr ONCE ONE Administration Iopamidol 75 ml 08/09/23 01:10 08/09/23 01:11 Iopamidol-370 (76%);100ml Bottle IV 08/09/23 01:11 75 ml ONCE ONE Administration Ketorolac Tromethamine 15 mg 08/09/23 00:29 08/09/23 00:36 Ketorolac 30mg/Ml Vial IV 08/09/23 00:30 15 mg ONCE ONE Administration Ondansetron HCl 4 mg 08/09/23 00:29 08/09/23 00:36 Ondansetron 4mg/2ml Vial IV 08/09/23 00:30 4 mg ONCE ONE Administration ORDERS Category Date Time Status CT abdomen pelvis w con Stat Cat Scan 08/09/23 00:37 Completed Complete Blood Count Auto Diff Stat Lab 08/09/23 00:26 Completed Comprehensive Metabolic Panel Stat Lab 08/09/23 00:26 Completed UA [Urinalysis and Microscopic] Stat Lab 08/09/23 00:30 Completed Urine , HCG Qual. Stat Lab 08/09/23 00:30 Completed Urine Culture Stat Micro 08/09/23 00:35 Received Medical Decision Narrative: In summary, this patient is a 27-year-old female presenting to the Emergency Department for evaluation of pelvic pain radiating to her back and bilateral flanks as well as UTI symptoms. Differential diagnoses considered include but are not limited to cystitis, pyelonephritis, ureterolithiasis. Ruling out the most morbid conditions drove assessment. It should be noted patient's history includes recurrent urinary tract infections which may or may not be at goal therapy. This complicates all aspects of care by increasing patient's risk for morbidity. On exam, the patient is very anxious appearing and tearful. She has mild suprapubic tenderness but otherwise abdominal exam is benign. Workup included CBC, CMP, urinalysis, urine gonorrhea and chlamydia, urine culture, and urine test. Patient was given a bolus of IV fluids as well as IV acetaminophen, Toradol, and Zofran for symptomatic improvement. Given severity of pain, CT abd/pelvis with IV contrast ordered. I independently interpreted CT scan prior to the radiologist read and noted left ovarian cyst. Please see their read for final interpretation. Labs were obtained that demonstrated leukocytosis as well as concerns for urinary tract infection and pyelonephritis with urine that is positive for leukocyte esterase, blood, bacteria, as well as proteinuria. Based on lab evaluation and clinical picture, I feel the patient likely has pyelonephritis as a cause of her symptoms. She does have a 4 cm left ovarian cyst, and I advised her that we cannot exclude ovarian torsion without obtaining a transvaginal ultrasound to evaluate for flow to her left ovary. She would like to go home, as she has work in the morning and does not want to miss. I explained to her what ovarian torsion is and the signs and symptoms of such. She states she is feeling better at this time with no residual pain after receiving Toradol and Tylenol. She does not wish to undergo emergent ultrasound at this time, as she states that she is not having any pain any longer and would plan to follow-up very closely with gynecology for outpatient ultrasound. She states she will come back if the pain returns. We discussed this at length, and after shared decision-making with the patient, transvaginal ultrasound was not ordered here in the emergency department today. Patient was given IV Rocephin here in the emergency department given concerns for pyelonephritis. She states that she was supposed to be on Bactrim as an outpatient, and it is unclear if this is based on prior culture results to me. Given that this was prescribed by her physician who knows her well presumably based on culture results, will plan to discharge her home with Bactrim. She was given prescriptions for Pyridium, Zofran, and Toradol as well. She was given instructions for close gynecology follow-up as well as primary care follow-up. She was given very strict return precautions, especially with regards to ovarian cyst/torsion. Patient was discharged after all questions were answered. Critical Care Critical Care Time Critical Care Time: No
[2023-08-09 00:35] LABS: Microscopic, Urine URINE MICROSCOPIC (MICROSCOPIC)
[2023-08-09] MEDS: LACTATED RINGERS 1000ML 1,000 ML 999 ML IV (00:36)
[2023-08-09] MEDS: KETOROLAC 30MG/ML VIAL 15 MG IV (00:36)
[2023-08-09] MEDS: ONDANSETRON 4MG/2ML VIAL 4 MG IV (00:36)
[2023-08-09 00:37] LABS: Appearance,Urine CLEAR (Clear); Bilirubin,Urine Negative (Negative); Blood, Urine 3+ (Negative); Color,Urine YELLOW (Yellow); Glucose,Urine (UA) Negative (Negative); Ketones,Urine Negative (Negative); Leukocyte Esterase,Urine 2+ (Negative); Nitrate,Urine Negative (Negative); PH,Urine 6.5 (5.0-8.5); Protein,Urine 2+ (Negative); Urine Pregnancy, HCG Qual. Negative (Negative); Urobilinogen,Urine 0.2 EU/dl (0.2)
[2023-08-09] MEDS: ACETAMINOPHEN 1,000MG/100ML VIAL 1000 MG IV (00:37)
--- NOTE | 2023-08-09 00:37 | CT_ITS ---
PROCEDURE INFORMATION: Exam: CT Abdomen And Pelvis With Contrast Exam date and time: 08/09/2023 1:05 AM Age: 27 years old Clinical indication: Abdominal pain; Additional info: Pelvic pain rad to back, severe TECHNIQUE: Imaging protocol: Computed tomography of the abdomen and pelvis with contrast. Radiation optimization: All CT scans at this facility use at least one of these dose optimization techniques: automated exposure control; mA and/or kV adjustment per patient size (includes targeted exams where dose is matched to clinical indication); or iterative reconstruction. Contrast material: ISOVUE; Contrast volume: 75 ml; Contrast route: IV; COMPARISON: 1. US OB BIOPHYSICAL PROFILE 11/03/2021 1:30 PM 2. US OB TRANSVAGINAL 10/30/2021 3:39 PM 3. US OB /MATERNAL DETAIL 08/04/2021 1:02 PM FINDINGS: Limitations: Evaluation of intra-abdominal contents is limited by a paucity of intraperitoneal fat. Liver: Normal. Gallbladder and bile ducts: No acute process. Pancreas: Normal. Spleen: Normal. Adrenal glands: The adrenal glands appear normal. Kidneys and ureters: There are no soft tissue renal masses or hydronephrosis. Stomach and bowel: There is large volume stool throughout the colon. Appendix: No evidence of appendicitis. Intraperitoneal space: There is a small volume of free fluid in the pelvis. Vasculature: The abdominal aorta and its major branches appear normal without evidence of aneurysm or stenosis. There are pelvic phleboliths. Lymph nodes: No lymphadenopathy. Urinary bladder: Unremarkable as visualized. Reproductive: 4 cm left adnexal cyst, consider pelvic ultrasound for further evaluation. Bones/joints: The visualized osseous structures of the abdomen and pelvis appear normal for patient age. Soft tissues: Unremarkable. IMPRESSION: 1. 4 cm left adnexal cyst, consider pelvic ultrasound for further evaluation. 2. Otherwise, incidental findings as above.
[2023-08-09 00:40] LABS: Basophils # 0.1 K/mm3 (0-0.2); Basophils % 0.6 % (0.1-2.0); Eosinophils # 0.2 K/mm3 (0.0-0.4); Hematocrit 45.5 % (37.0-47.0); Hemoglobin 14.7 g/dL (12.2-16.2); Lymphocytes # 2.8 K/mm3 (0.7-4.5); Lymphocytes % 16.3 % (10-50); Mean Corpuscular HGB Conc 32.2 g/dL (31.8-35.4); Mean Corpuscular Hemoglobin 31.2 pg (27.0-31.2); Mean Corpuscular Volume 96.8 fl (81-99); Mean Platelet Volume 7.9 fl (7.4-10.4); Monocytes # 0.7 K/mm3 (0.1-1.0); Neutrophils # 13.5 K/mm3 (1.8-7.8); Neutrophils % 78.1 % (37.0-80.0); Platelet Count 335 K/mm3 (142-424); Red Blood Count 4.71 M/mm3 (4.20-5.40); Red Cell Distribution Width 13.2 % (11.5-17.5); White Blood Count 17.2 K/mm3 (4.8-10.8)
[2023-08-09 00:43] LABS: Alanine Aminotransferase 22 U/L (12-78); Albumin Level 4.4 g/dl (3.5-5.0); Albumin/Globulin Ratio 1.5 (1.1-1.8); Alkaline Phosphatase 59 U/L (38-126); Anion Gap 14.2 mEq/L (5-15); Aspartate Amino Transferase 22 U/L (14-36); Bilirubin,Total 0.7 mg/dl (0.2-1.3); Blood Urea Nitrogen 15 mg/dl (7-17); Calcium 9.6 mg/dl (8.4-10.2); Carbon Dioxide 29 mmol/L (22.0-30.0); Chloride 102 mmol/L (98-107); Creatinine Clearance Estimated 118 mL/min (50-200); Estimated Glomerular Filt Rate 87 ml/min (>60); GFR (African American) 105 ML/MIN (>60); Globulin 2.9 g/dL (1.3-3.2); Glucose 98 mg/dl (74-100); Potassium 4.2 mmoL/L (3.5-5.1); Sodium 141 mmol/L (136-145); Total Protein,Serum 7.3 g/dl (6.3-8.2)
[2023-08-09 00:45] LABS: MANUAL DIFFERENTIAL MANUAL DIFFERENTIAL (MANUAL DIFF)
[2023-08-09 00:53] LABS: Amorphous Sediment,Urine 1+ /lpf; Bacteria,Urine 1+ /lpf; Squamous Epithelial Cell,Urine Occasional #/hpf (0-5); WBC,Urine 20-50 #/hpf (0-3)
[2023-08-09 00:57] LABS: Eosinophils % 2 % (0-3); Lymphocytes % 20 % (10-50); Monocytes % 3 % (2-9); Neutrophils % 75 % (42-76); Platelet Estimate Normal; RBC Morphology Normal; Total Cells Counted 100
[2023-08-09] MEDS: IOPAMIDOL-370 (76%);100ML BOTTLE 75 ML IV (01:11)
[2023-08-09] MEDS: SODIUM CHLORIDE 0.9% 10ML SYR (RAD ONLY) 10 ML IV (01:11)
[2023-08-09] MEDS: CEFTRIAXONE SODIUM 2 GM in 0.9 % SODIUM CHLORIDE 100 ML IV (01:33)
[2023-08-09 02:10] VITALS: BP 125/76; PULSE 66; RESP 16; TEMP 36.9; O2SAT 100
--- NOTE | 2023-08-11 10:34 | PC.NURSE ---
URINE CULTURE DISCUSSED WITH DR NÚÑEZ, NO MEDICATION CHANGES
[2023-08-12 22:09] LABS: Neisseria gonorrhoeae, NAA Negative (Negative)
== END 2023-08-09 02:11 | disposition home or self-care (01) ==
PROVIDERS: Emergency Provider Emergency Medicine; PCP Physician Assistant
DX: N10 Acute pyelonephritis (principal); B96.29 Other Escherichia coli [E. coli] as the cause of diseases classified elsewhere; R10.30 Lower abdominal pain, unspecified; M54.59 Other low back pain; R30.0 Dysuria; N83.202 Unspecified ovarian cyst, left side; R35.0 Frequency of micturition; R11.0 Nausea
CPT/HCPCS: 74177; 80053; 81001; 81025; 85007; 85025; 87086; 87088; 87186; 87491; 87591; 96361; 96365; 96375; 99285; J0131; J0696; J1885; J2405; J7120; Q9967

== ENCOUNTER 2023-08-13 15:51 | Outpatient (CLI) | payer BC, MEDICAID, SELFPAY ==
--- NOTE | 2023-08-13 15:51 | US_ITS ---
PROCEDURE: US TRANSVAGINAL CLINICAL INDICATION: ovarian cyst COMPARISON: CT CT ABDOMEN PELVIS W CON from 08/09/2023 FINDINGS: Transvaginal sonographic images of the pelvis were obtained. UTERUS: 8.3cm x 5.3cmx 4.3cm anteverted with a combined endometrial thickness of 3.2mm. LEFT OVARY: 3.2cmx3.8 cmx4.7cm with a volume of 30.1ml. There is a follicle in the left ovary measuring 2.6 cm x 3.7 cm x 3.1 cm. RIGHT OVARY: 2.7 cmx 1.5 cmx1.5cm with a volume of 3.2ml. There are multiple small follicles in the right ovary. Both ovaries are seen and appear normal. Doppler flow to both ovaries are seen. There is no fluid in the cul-de-sac. IMPRESSION: 1. Anteverted uterus normal in shape and size. The endometrium is thin. 2. Both ovaries are seen and appear normal. 3. The right ovary has a polycystic appearance. The left ovary has a 3.7 cm follicle. This correlates with the CT scan done 08/11/2023. 4. No fluid in the cul-de-sac. Dictated by: Bishop Acuna MD 08/13/2023 17:24 Bishop Acuna MD in [facility] 08/13/2023 17:24
== END 2023-08-13 23:59 | disposition home or self-care (01) ==
LOC: RAD 15:51
PROVIDERS: PCP Physician Assistant; Visit Provider Obstetrics & Gynecology
DX: N83.201 Unspecified ovarian cyst, right side (principal); N83.202 Unspecified ovarian cyst, left side
CPT/HCPCS: 76830

== ENCOUNTER 2024-04-01 00:34 | Emergency (ER) | payer BC, SELFPAY ==
[2024-04-01 00:34] VITALS: BP 152/84; PULSE 104; RESP 26; TEMP 37.2; O2SAT 99; BMI 21.9
--- NOTE | 2024-04-01 00:34 | ECG_ITS ---
APPROVED REPORT Exam: Resting ECG HR:97 bpm ECG Measurements Heart Rate 97 AXES RI 158 P 77 QRSd 85 QRS 81 QT 340 T 61 QTc 395 Conclusion SINUS RHYTHM NONSPECIFIC T-WAVE ABNORMALITY BORDERLINE ECG UNCONFIRMED REPORT Electronically signed by : SARY ZAVALETA, 04/03/2024 06:50:07
--- NOTE | 2024-04-01 00:44 | ED_ITS ---
Discharge Plan Disposition Patient Disposition: Home, Self-Care Prescriptions Prescriptions: New ondansetron HCl 4 mg tablet 4 mg PO Q8H PRN (Reason: nausea and vomiting) 5 Days Qty: 30 0RF benzonatate 100 mg capsule 100 mg PO Q6H PRN (Reason: cough) Qty: 30 0RF No Action acetaminophen [Tylenol] 325 mg Tablet 1,000 mg PO Q4-6H PRN (Reason: Fever Or Pain) Referrals Follow up/Referrals: Provider,Referral, [Primary Care Provider] - See instructions Activity Restrictions/Add. Instructions Additional Instructions/Restrictions: Please follow-up with your primary care provider. Please return to the emergency department if you develop any new or worsening symptoms or become concerned for your health. Please take Tylenol and ibuprofen as needed for pain and fever. Please take the Tessalon Perles and use Zofran as needed for cough and nausea. Clinical Impressions Clinical Impression: Influenza A Stand Alone Forms Stand Alone Forms: Work/School Release Print Language Print Language: Comoran Discharge ED Provider: Axel Austin General Adult HPI General Chief complaint: Shortness of Breath/Dyspnea Stated complaint: chest pain Time Seen by Provider: 04/01/24 00:39 History of Present Illness HPI narrative: 28-year-old female with reported history of mild childhood asthma presents for several days of worsening flulike symptoms including fever cough shortness of breath muscle aches headache etc. Denies any chance of being . Related Data Home Medications ?Medication ?Instructions ?Recorded ?Confirmed acetaminophen 325 mg tablet 1,000 mg PO Q4-6H PRN Fever Or Pain 04/01/24 04/01/24 (Tylenol) Previous Rx's ?Medication ?Instructions ?Recorded benzonatate 100 mg capsule 100 mg PO Q6H PRN cough #30 caps 04/01/24 ondansetron HCl 4 mg tablet 4 mg PO Q8H PRN nausea and 04/01/24 vomiting 5 days #30 tabs Allergies Allergy/AdvReac Type Severity Reaction Status Date / Time No Known Allergies Allergy Verified 04/01/24 00:44 [facility] Disclaimer: The information contained in this section may have been updated after the patient was seen, as this information can be updated by other users. Medical History (Updated 04/01/24 @ 01:26 by Axel Austin MD) Syringoma Anxiety History of severe pre-eclampsia Mild tetrahydrocannabinol (THC) abuse Surgical History History of tympanostomy tube placement History of tonsillectomy Family History Other No significant family history Social History Smoking Status: Unknown if ever smoked alcohol intake: never substance use type: marijuana current occupational status: other Travel in the last 8 weeks: None household members: other housing: other Other Medical History Have you received the Flu Vaccine for this season: No Have you received the Pneumonia Vaccine: No ROS Obtained: Yes All systems reviewed & no additional complaints except as documented Physical Exam General General appearance: alert and anxious Comment: Mildly diaphoretic Head Head exam: atraumatic and normocephalic Eye Eye exam: Present normal appearance, PERRL and EOMI ENT ENT exam: Present normal oropharynx and normal external ear exam Neck Neck exam: Present normal inspection and full ROM Chest Chest inspection: Present normal inspection and symmetric chest wall rise; Absent tenderness Respiratory Respiratory exam: Present normal lung sounds bilaterally; Absent respiratory distress Cardiovascular Cardiovascular exam: Present normal rhythm and tachycardia Abdominal Exam Abdominal exam: Present soft; Absent distention, tenderness or guarding Extremities Exam Extremities exam: Present normal inspection; Absent edema or joint swelling Back Exam Back exam: Present normal inspection; Absent tenderness Neurological Exam Neurological exam: Present alert and oriented X3; Absent motor sensory deficit Psychiatric Psychiatric exam: Present normal affect and normal mood Skin Skin exam: Present warm, dry and normal color Lymphatic Lymphatic Findings: no adenopathy Medical Decision Making Medical Records Medical records reviewed: Yes I reviewed the patient's medical records. Screening: Per USPSTF and CDC recommendations, given the prevalence of disease in our region, it is our hospital?s policy to screen for HIV and viral Hepatitis for all patients aged 18 and over and those with ongoing risk factors. Spenser Inquiry Pt receiving controlled substance: No Spenser was queried for this patient: No Vital Signs: 04/01/24 00:34 04/01/24 01:00 04/01/24 01:28 Temperature 98.9 F 97.8 F Temperature Source Oral Pulse Rate 83 84 Pulse Rate [Left] 104 H Respiratory Rate 26 H 17 20 Blood Pressure 124/78 124/78 Blood Pressure [Right Arm] 152/84 H Blood Pressure Mean [Right Arm] 106 02 Sat by Pulse Oximetry 99 98 Oxygen Delivery Method Room Air Room Air 04/01/24 01:30 Temperature Temperature Source Pulse Rate 83 Pulse Rate [Left] Respiratory Rate 17 Blood Pressure 121/87 Blood Pressure [Right Arm] Blood Pressure Mean [Right Arm] 02 Sat by Pulse Oximetry 96 Oxygen Delivery Method Lab Data Lab results reviewed: Yes I reviewed the patient's lab results. Lab Results 04/01/24 00:37: WBC 6.2, RBC 4.17 L, Hgb 12.7, Hct 38.3, MCV 91.8, MCH 30.5, MCHC 33.2, RDW 12.5, Plt Count 280, MPV 10.1, Neut % (Auto) 81.9 H, Lymph % (Auto) 6.4 L, [place] % (Auto) 10.1 H, Eos % (Auto) 0.3, Baso % (Auto) 0.8, Neut # (Auto) 5.1, Lymph # (Auto) 0.4 L, [place] # (Auto) 0.6, Eos # (Auto) 0.0, Baso # (Auto) 0.1, Sodium 137, Potassium 3.9, Chloride 106, Carbon Dioxide 23, Anion Gap 11.9, BUN 12, Creatinine 0.60, Estimated Creat Clear 158, Estimated GFR 120, Est GFR ( Amer) 145, Glucose 104 H, Calcium 9.1, Magnesium 1.8, Total Bilirubin 0.6, AST 31, ALT 29, Alkaline Phosphatase 62, Total Protein 6.7, Albumin 4.5, Globulin 2.2, Albumin/Globulin Ratio 2.0 H, Serum HCG, Qual Negative 04/01/24 00:42: SARS-CoV-2 (PCR) Not detected, Influenza A Untype (PCR) Detected A, Influenza Type B (PCR) Not detected 04/01/24 00:37 04/01/24 00:37 Orders (Tests/Meds): ED MEDICATIONS Discontinued Medications Generic Name Dose Route Start Last Admin Trade Name Freq PRN Reason Stop Dose Admin Benzonatate 100 mg 04/01/24 00:45 04/01/24 00:46 Benzonatate 100mg Capsule PO 05/01/24 00:44 100 mg ONCE SAMSON Administration Lactated Ringer's 1,000 mls @ 999 mls/hr 04/01/24 00:45 04/01/24 00:47 Lactated Ringer's 1000 Ml Bag IV 04/01/24 01:45 999 mls/hr .Q1H1M SAMSON Administration Ketorolac Tromethamine 30 mg 04/01/24 00:51 04/01/24 00:53 Ketorolac 30mg/Ml Vial IV 04/01/24 00:52 30 mg ONCE ONE Administration Ondansetron HCl 4 mg 04/01/24 00:39 04/01/24 00:46 Ondansetron 4mg/2ml Vial IV 04/01/24 00:40 4 mg ONCE ONE Administration ORDERS Category Date Time Status CBC w/Auto Diff [Complete Blood Count Auto Diff] Stat Lab 04/01/24 00:37 Completed CMP [Comprehensive Metabolic Panel] Stat Lab 04/01/24 00:37 Completed HCG Qualitative, Serum Stat Lab 04/01/24 00:37 Completed HIV Combo Routine Lab 04/01/24 00:37 Received Hepatitis C Ab Qual. W/ RFX Routine Lab 04/01/24 00:37 Received Magnesium Stat Lab 04/01/24 00:37 Completed Rapid PCR Covid and Flu A/B Stat Lab 04/01/24 00:42 Completed Medical Decision Narrative: 28-year-old female with history of childhood asthma presents for several days of flulike symptoms. Reports multiple flu exposures. History was obtained via interactive discussion with patient chart review. On arrival, patient is [afebrile, hemodynamically stable, mildly tachycardic, satting appropriately, alert, oriented x4, GCS 15], moving all extremities spontaneously. Full physical exam performed and significant for clear lungs bilaterally, Differential includes but is not limited to COVID, flu, URI, pneumonia. Patient was given 1 L IV fluids, IV Zofran Tessalon Perles Toradol for symptomatic management and correction of underlying abnormalities. Workup initiated including CBC CMP mag test COVID flu swab. On re-evaluation, patient reports symptomatic improvement. Tachycardia resolved. Laboratory workup independently interpreted by me and significant for flu a positive, no significant electrolyte derangements, no significant leukocytosis. Chest x-ray was considered, but deemed unnecessary due to viral illness, clear lungs bilaterally on exam. Given patient history, exam and workup, patient's presentation most likely represents influenza A. Interactive discussion was had with patient regarding her presentation and symptomatic care. She was discharged with prescription for Tessalon Perles and Zofran. Return precautions given.. Procedures Risk/Benefits of Procedure(s) Were Explained: Yes Critical Care Critical Care Time Critical Care Time: No
[2024-04-01] MEDS: BENZONATATE 100MG CAPSULE 100 MG PO (00:46)
[2024-04-01] MEDS: ONDANSETRON 4MG/2ML VIAL 4 MG IV (00:46)
[2024-04-01] MEDS: LACTATED RINGERS 1000ML 1,000 ML 999 ML IV (00:47)
[2024-04-01 00:49] LABS: Coronavirus 19, PCR Not Detected (NotDetected); Influenza B, PCR Not Detected (NotDetected)
[2024-04-01 00:53] LABS: Basophils # 0.1 K/mm3 (0-0.2); Basophils % 0.8 % (0.1-2.0); Eosinophils % 0.3 % (0.1-12.0); Hematocrit 38.3 % (37.0-47.0); Hemoglobin 12.7 g/dL (12.2-16.2); Lymphocytes # 0.4 K/mm3 (0.7-4.5); Lymphocytes % 6.4 % (10-50); Mean Corpuscular HGB Conc 33.2 g/dL (31.8-35.4); Mean Corpuscular Hemoglobin 30.5 pg (27.0-31.2); Mean Corpuscular Volume 91.8 fl (81-99); Mean Platelet Volume 10.1 fl (7.4-10.4); Monocytes # 0.6 K/mm3 (0.1-1.0); Monocytes % 10.1 % (1.7-9.3); Neutrophils # 5.1 K/mm3 (1.8-7.8); Neutrophils % 81.9 % (37.0-80.0); Platelet Count 280 K/mm3 (142-424); Red Blood Count 4.17 M/mm3 (4.20-5.40); Red Cell Distribution Width 12.5 % (11.5-17.5); White Blood Count 6.2 K/mm3 (4.8-10.8)
[2024-04-01] MEDS: KETOROLAC 30MG/ML VIAL 30 MG IV (00:53)
[2024-04-01 01:00] VITALS: BP 124/78; PULSE 83; RESP 17; O2SAT 98
[2024-04-01 01:06] LABS: Alanine Aminotransferase 29 U/L (12-78); Albumin Level 4.5 g/dl (3.5-5.0); Alkaline Phosphatase 62 U/L (38-126); Anion Gap 11.9 mEq/L (5-15); Aspartate Amino Transferase 31 U/L (14-36); Bilirubin,Total 0.6 mg/dl (0.2-1.3); Blood Urea Nitrogen 12 mg/dl (7-17); Calcium 9.1 mg/dl (8.4-10.2); Carbon Dioxide 23 mmol/L (22.0-30.0); Chloride 106 mmol/L (98-107); Creatinine Clearance Estimated 158 mL/min (50-200); Estimated Glomerular Filt Rate 120 ml/min (>60); GFR (African American) 145 ML/MIN (>60); Globulin 2.2 g/dL (1.3-3.2); Glucose 104 mg/dl (74-100); Potassium 3.9 mmoL/L (3.5-5.1); Sodium 137 mmol/L (136-145); Total Protein,Serum 6.7 g/dl (6.3-8.2)
[2024-04-01 01:21] LABS: Influenza A, PCR Detected (NotDetected)
[2024-04-01 01:22] LABS: HCG Qualitative, Serum Negative (Negative)
[2024-04-01 01:25] LABS: Magnesium 1.8 mg/dl (1.6-2.3)
[2024-04-01 01:28] VITALS: BP 124/78; PULSE 84; RESP 20; TEMP 36.6; O2SAT 97
[2024-04-01 01:30] VITALS: BP 121/87; PULSE 83; RESP 17; O2SAT 96
[2024-04-01 09:04] LABS: HIV Combo NEGATIVE (Negative)
[2024-04-01 09:12] LABS: Hepatitis C Ab Qual. W/ RFX NEGATIVE (Negative)
== END 2024-04-01 01:36 | disposition home or self-care (01) ==
PROVIDERS: Emergency Provider Emergency Medicine
DX: J10.1 Influenza due to other identified influenza virus with other respiratory manifestations (principal); R07.9 Chest pain, unspecified; J45.909 Unspecified asthma, uncomplicated; R50.9 Fever, unspecified; R05.9 Cough, unspecified; R06.02 Shortness of breath; M79.10 Myalgia, unspecified site; R51.9 Headache, unspecified
CPT/HCPCS: 80053; 83735; 84703; 85025; 86803; 87389; 87636; 93005; 96365; 96374; 96375; 99283; J1885; J2405; J7120

== ENCOUNTER 2024-04-22 07:56 | Emergency (ER) | payer BC, SELFPAY ==
[2024-04-22 08:03] VITALS: BP 114/77; PULSE 78; RESP 18; TEMP 36.9; O2SAT 97; BMI 23.4
--- NOTE | 2024-04-22 08:10 | PC.NURSE ---
DR SHEARER AT BEDSIDE
--- NOTE | 2024-04-22 08:21 | ED_ITS ---
Discharge Plan Disposition Patient Disposition: Home, Self-Care Prescriptions Prescriptions: New prednisone 20 mg tablet 40 mg PO DAILY 5 Days Qty: 10 0RF cetirizine 10 mg capsule 10 mg PO HS Qty: 30 0RF fluticasone propionate 50 mcg/actuation spray,suspension 1 spray intranasal BID 7 Days Qty: 16 0RF Rx Instructions: administer into each nostril No Action Nexplanon 68 mg Implant 68 mg SUBDERMAL ONCE Referrals Follow up/Referrals: Musa Okeefe DO [Primary Care Provider] - See instructions Activity Restrictions/Add. Instructions Additional Instructions/Restrictions: Call your family doctor to establish care for this visit to the emergency department and schedule follow-up within 48 hours to ensure improvement. If you have any worsening of your condition or any other concerning signs or symptoms, return to the emergency department or your primary care doctor for further evaluation. Steroid each morning for the next 5 days. Nasal steroid twice daily as prescribed. Take cetirizine each night before going to bed to help with drainage and congestion. Clinical Impressions Clinical Impression: Acute dysfunction of both eustachian tubes, Sinus pressure Print Language Print Language: Cambodian Discharge ED Provider: Renny Jaimes General Adult HPI General Chief complaint: Ear Stated complaint: swelling in sides of face w/pain ear pain Time Seen by Provider: 04/22/24 08:07 Mode of Arrival: Ambulatory Source of Information: Patient Limitations: No Limitations Description of Symptoms (Recalled from ER Triage Doc. by RN): Left ear pain, jaw pain, cough History of Present Illness HPI narrative: Please note that above description of symptoms, in this electronic medical record under categorization of recalled from ER triage doctor by RN are reflective of an initial nursing assessment, however, is not reflective of my full history and physical exam that was personally taken and clarified. Consequentially, this preceding description of symptoms, which may include the patient's categorized chief complaint in the EMR, do not reflect my personal clinical impression, and the ultimate description of history of present illness and patient stated complaints should be deferred to this section of the note. Unless stated otherwise or congruent with this section of the note, additional signs, symptoms, or incongruence should be interpreted as inaccurate with my clinical impression. Related Data Home Medications ?Medication ?Instructions ?Recorded ?Confirmed etonogestrel 68 mg subdermal 68 mg subdermal ONCE 04/22/24 04/22/24 implant (Nexplanon) Previous Rx's ?Medication ?Instructions ?Recorded cetirizine 10 mg capsule 10 mg PO HS #30 caps 04/22/24 fluticasone propionate 50 1 spray intranasal BID 7 days #16 04/22/24 mcg/actuation nasal grams spray,suspension prednisone 20 mg tablet 40 mg (2 x 20 mg) PO DAILY 5 days 04/22/24 #10 tabs Allergies Allergy/AdvReac Type Severity Reaction Status Date / Time No Known Allergies Allergy Verified 04/01/24 00:44 [facility] Disclaimer: The information contained in this section may have been updated after the patient was seen, as this information can be updated by other users. Medical History (Updated 04/22/24 @ 08:27 by Renny Jaimes MD) Syringoma Anxiety History of severe pre-eclampsia Mild tetrahydrocannabinol (THC) abuse Surgical History History of tympanostomy tube placement History of tonsillectomy Family History Other No significant family history Social History Smoking Status: Never smoker alcohol intake: never substance use type: marijuana current occupational status: other Travel in the last 8 weeks: None household members: other housing: other Have you lived/traveled outside [place] in past 30 days?: No Contact w/someone who lives/traveled outside US past 30 days?: No Exposure to someone with infectious disease in past 14 days?: No Do you have a fever (greater than 100.4 F or 38 C)?: No Have you tested positive for COVID-19: No Exposed to someone with COVID-19 in past 14 days?: No Do you have a sore throat?: No Do you have a cough?: No Do you have any weakness?: No Do you have any diarrhea?: No Are you experiencing any unusual bleeding?: No Do you have any muscle aches/pain?: No Do you have any abdominal pain?: No Are you experiencing loss of taste or smell?: No Other Medical History Have you received the Flu Vaccine for this season: No Have you received the Pneumonia Vaccine: No ROS Obtained: Yes All systems reviewed & no additional complaints except as documented Physical Exam General General appearance: alert and in no apparent distress Head Head exam: atraumatic and normocephalic Eye Eye exam: Present normal appearance, PERRL and EOMI ENT ENT exam: Present mucous membranes moist and normal external ear exam; Absent TM's normal bilaterally (Bilateral serous effusions) Neck Neck exam: Present normal inspection, full ROM, trachea midline and lymphadenopathy (Shotty lymphadenopathy left anterior cervical chain) Respiratory Respiratory exam: Absent respiratory distress, wheezes, stridor, accessory muscle use or prolonged expiratory phase Cardiovascular Cardiovascular exam: Present regular rate, normal rhythm and other (Pulses equal symmetric in upper and lower extremities) Abdominal Exam Abdominal exam: Present soft; Absent distention, tenderness or pulsatile mass Extremities Exam Extremities exam: Absent edema Neurological Exam Neurological exam: Present alert, oriented X3 and CN II-XII intact; Absent motor sensory deficit Skin Skin exam: Present warm and dry; Absent diaphoresis or erythema Medical Decision Making Medical Records Medical records reviewed: Yes I reviewed the patient's medical records. Screening: Per USPSTF and CDC recommendations, given the prevalence of disease in our region, it is our hospital?s policy to screen for HIV and viral Hepatitis for all patients aged 18 and over and those with ongoing risk factors. Spenser Inquiry Pt receiving controlled substance: No Spenser was queried for this patient: No Vital Signs: 04/22/24 08:03 Temperature 98.4 F Temperature Source Oral Pulse Rate [Right] 78 Respiratory Rate 18 Blood Pressure [Right Arm] 114/77 Blood Pressure Mean [Right Arm] 89 02 Sat by Pulse Oximetry 97 Oxygen Delivery Method Room Air Medical Decision Narrative: Very clinically well-appearing female presenting with swollen lymph node on the left side of her neck, sinus congestion, cough. Patient states that she had the flu at the beginning of this month. States that over the past couple of days she has developed a similar syndrome. States that she has sinus fullness in her face, tenderness to the long angles of her jaws, tenderness in both ears, as well as a swollen lymph node on the left side of her jaw just below her ear. No fevers or chills, nausea or vomiting, chest pain, shortness of breath, and has not taken any medications or noticed anything that makes any better. Regarding cough, it is related to nasal drainage, productive of thick, clear to yellow sputum. Coming in for further evaluation. History obtained the patient. On my evaluation, patient very clinically well-appearing. Speaking full sentences, no acute distress. Head and neck exam largely normal with the exception of bilateral serous effusions, tenderness just posterior to angle of mandible bilaterally/inferior to ears (not TMJ), as well as 1 inflamed lymph node in the anterior cervical chain on the left side. Otherwise normal. I feel this is most consistent with acute viral syndrome/URI and postnasal drip exacerbating likely underlying eustachian tube dysfunction. Labs were considered, but not deemed necessary. No systemic signs or symptoms and clinically hemodynamically stable/well. Swab was considered, but would not private branch exchange repairer, so opted out of. Patient was given first dose of steroid here. Because patient at baseline without signs or symptoms of clinical decompensation, deemed appropriate for discharge. Results were relayed to patient who voiced understanding and were agreeable to outpatient management and follow up. I discussed my clinical impression with patient and answered all questions. At this time, the evidence for any other entities in the differential is insufficient to warrant any further testing or ED observation. This was explained as well. Advisory was given that persistent or worsening symptoms require further evaluation. I confirmed the understanding of this discussion. Clinical Education Assistant disclaimer Much of this encounter note is an electronic underground miner spoken language to printed text. Electronic underground miner of the spoken language may permit errors. Although I have reviewed the note, some errors may still exist. Critical Care Critical Care Time Critical Care Time: No
[2024-04-22] MEDS: DEXAMETHASONE 4MG TABLET 10 MG PO (08:29)
[2024-04-22 08:40] VITALS: BP 121/68; PULSE 78; RESP 16; TEMP 36.9; O2SAT 100
== END 2024-04-22 08:41 | disposition home or self-care (01) ==
PROVIDERS: Emergency Provider Emergency Medicine; PCP Internal Medicine
DX: H69.93 Unspecified Eustachian tube disorder, bilateral (principal)
CPT/HCPCS: 99283; J8540

== ENCOUNTER 2024-05-04 18:00 | Emergency (ER) | payer BC, SELFPAY ==
[2024-05-04 18:03] VITALS: BP 137/85; PULSE 78; RESP 18; TEMP 36.8; O2SAT 100; BMI 19.8
--- NOTE | 2024-05-04 18:13 | XR_ITS ---
PROCEDURE INFORMATION: Exam: XR Chest Exam date and time: 05/04/2024 7:28 PM Age: 28 years old Clinical indication: Chest wall pain; Additional info: Chest pain TECHNIQUE: Imaging protocol: Radiologic exam of the chest. Views: 2 views. COMPARISON: CT ABDOMEN PELVIS W CON 08/09/2023 1:05 AM FINDINGS: Lungs: Unremarkable. No consolidation. Pleural spaces: Unremarkable. No pleural effusion. No pneumothorax. Heart/Mediastinum: Unremarkable. No cardiomegaly. Bones/joints: Unremarkable. IMPRESSION: No acute findings.
--- NOTE | 2024-05-04 18:19 | ECG_ITS ---
APPROVED REPORT Exam: Resting ECG HR:105 bpm ECG Measurements Heart Rate 105 AXES CO 151 P 78 QRSd 80 QRS 83 QT 329 T 67 QTc 390 Conclusion SINUS TACHYCARDIA No acute ST changes Electronically signed by : DENG FOSTER, 05/04/2024 23:45:23
[2024-05-04] MEDS: ACETAMINOPHEN 1,000MG/100ML VIAL 1000 MG IV (18:24)
[2024-05-04] MEDS: BELLADONNA ALKALOIDS 60 ML ML PO (18:24)
[2024-05-04] MEDS: hydrOXYzine pamoate 25MG CAPSULE 25 MG PO (18:31)
[2024-05-04 18:42] LABS: Basophils # 0.1 K/mm3 (0-0.2); Basophils % 0.4 % (0.1-2.0); Eosinophils # 0.1 K/mm3 (0.0-0.4); Eosinophils % 0.4 % (0.1-12.0); Hematocrit 39.6 % (37.0-47.0); Hemoglobin 13.1 g/dL (12.2-16.2); Lymphocytes # 2.5 K/mm3 (0.7-4.5); Lymphocytes % 20.7 % (10-50); Mean Corpuscular HGB Conc 33.1 g/dL (31.8-35.4); Mean Corpuscular Hemoglobin 30.5 pg (27.0-31.2); Mean Corpuscular Volume 92.3 fl (81-99); Mean Platelet Volume 9.3 fl (7.4-10.4); Monocytes # 0.5 K/mm3 (0.1-1.0); Neutrophils # 8.9 K/mm3 (1.8-7.8); Platelet Count 315 K/mm3 (142-424); Red Blood Count 4.29 M/mm3 (4.20-5.40); Red Cell Distribution Width 12.6 % (11.5-17.5); White Blood Count 12.1 K/mm3 (4.8-10.8)
[2024-05-04 18:51] LABS: Alanine Aminotransferase 17 U/L (12-78); Albumin Level 4.5 g/dl (3.5-5.0); Albumin/Globulin Ratio 1.8 (1.1-1.8); Alkaline Phosphatase 74 U/L (38-126); Anion Gap 8.7 mEq/L (5-15); Aspartate Amino Transferase 22 U/L (14-36); Bilirubin,Total 0.6 mg/dl (0.2-1.3); Blood Urea Nitrogen 11 mg/dl (7-17); Carbon Dioxide 26 mmol/L (22.0-30.0); Chloride 106 mmol/L (98-107); Creatinine Clearance Estimated 131 mL/min (50-200); Estimated Glomerular Filt Rate 120 ml/min (>60); GFR (African American) 145 ML/MIN (>60); Globulin 2.5 g/dL (1.3-3.2); Glucose 98 mg/dl (74-100); Potassium 3.7 mmoL/L (3.5-5.1); Sodium 137 mmol/L (136-145)
[2024-05-04 18:56] LABS: C-Reactive Protein 2.1 mg/L (0-4); D-Dimer 0.34 ug/mL (0.0-0.5)
[2024-05-04 19:10] LABS: T4 (Thyroxine) 10.3 ug/dl (5.53-11.0)
[2024-05-04 19:18] LABS: Troponin I < 0.01 ng/ml (0.00-0.034)
--- NOTE | 2024-05-04 19:21 | PC.NURSE ---
Report received from May RN Pt resting quietly in bed Sleeping intermittantly. Skin pink warm and dry Resp full and easy Speech clear and appropriate IV infusing without difficulty Site without redness or edema
[2024-05-04 19:24] LABS: Thyroid Stimulating Hormone 2.11 uIU/mL (0.465-4.68)
[2024-05-04 19:35] LABS: HCG Qualitative, Serum Negative (Negative)
--- NOTE | 2024-05-04 19:35 | [facility].EDCP ---
Discharge Plan Disposition Patient Disposition: Home, Self-Care Condition: Good Prescriptions Prescriptions: New hydroxyzine pamoate [Vistaril] 25 mg capsule 25 mg PO Q8H PRN (Reason: panic attack(s)) Qty: 20 0RF No Action Nexplanon 68 mg Implant 68 mg SUBDERMAL ONCE prednisone 20 mg tablet 40 mg PO DAILY 5 Days Qty: 10 0RF cetirizine 10 mg capsule 10 mg PO HS Qty: 30 0RF fluticasone propionate 50 mcg/actuation spray,suspension 1 spray intranasal BID 7 Days Qty: 16 0RF Rx Instructions: administer into each nostril Referrals Follow up/Referrals: Jaquelin Robins APRN [Primary Care Provider] - See instructions Activity Restrictions/Add. Instructions Additional Instructions/Restrictions: You were evaluated in the emergency department today. At this time, your workup is very reassuring. Given that you had negative CT scans at and labs are reassuring today, I do not feel that you have any acute life-threatening pathology that requires admission to the hospital or further ER workup. Please follow-up very closely with your primary care provider for reassessment. supervisor [employer] your prescription for Vistaril and take as needed for anxiety. I feel this likely is the cause of most of your symptoms. Return to the emergency department for new or worsening symptoms. Clinical Impressions Clinical Impression: Anxiety, Chest pain Stand Alone Forms Stand Alone Forms: Work/School Release Instructions Patient Instructions: DI for Atypical Chest Pain, DI for Anxiety -- Adult, DI for Palpitations Print Language Print Language: Egyptian Discharge ED Provider: Brielle Cruz HPI General Chief Complaint: Chest Pain Stated Complaint: chest pain Time Seen by Provider: 05/04/24 18:12 Mode of Arrival: Ambulatory Source of Information: Patient Description of Symptoms (Recalled from ER Triage Doc. by RN): Pt presents with c/o chest pain x 2 weeks. Pt states she feels tightness in her neck and feels shaky History of Present Illness HPI narrative: This patient is a 28-year-old female without significant past medical history presenting to the emergency department for evaluation with concern for chest pain, feeling of a lump in her throat, shortness of breath that has been going on since end of February. She notes that starting in February, that she had the flu in March. She states that since then, she has been sick persistently. She notes that she feels like she cannot breathe, her chest always hurts, she was like there is something in her throat and is requesting a thyroid ultrasound. She has been seen in the ED here multiple times and has been diagnosed with eustachian tube dysfunction. She also saw yesterday, and on medical record review it was that she had CT scan of soft tissue neck, CTA chest and labs obtained and everything was normal. No notable lumps, masses, lymphadenopathy, or other concern. No PE. Related Data Home Medications ?Medication ?Instructions ?Recorded ?Confirmed etonogestrel 68 mg subdermal 68 mg subdermal ONCE 04/22/24 04/22/24 implant (Nexplanon) Previous Rx's ?Medication ?Instructions ?Recorded cetirizine 10 mg capsule 10 mg PO HS #30 caps 04/22/24 fluticasone propionate 50 1 spray intranasal BID 7 days #16 04/22/24 mcg/actuation nasal grams spray,suspension prednisone 20 mg tablet 40 mg (2 x 20 mg) PO DAILY 5 days 04/22/24 #10 tabs hydroxyzine pamoate 25 mg capsule 25 mg PO Q8H PRN panic attack(s) 05/04/24 (Vistaril) #20 caps Allergies Allergy/AdvReac Type Severity Reaction Status Date / Time No Known Allergies Allergy Verified 04/01/24 00:44 [facility] Disclaimer: The information contained in this section may have been updated after the patient was seen, as this information can be updated by other users. Medical History Syringoma Anxiety History of severe pre-eclampsia Mild tetrahydrocannabinol (THC) abuse Surgical History History of tympanostomy tube placement History of tonsillectomy Family History Other No significant family history Social History Smoking Status: Never smoker alcohol intake: never substance use type: marijuana current occupational status: other Travel in the last 8 weeks: None household members: other housing: other Other Medical History Have you received the Flu Vaccine for this season: No Have you received the Pneumonia Vaccine: No ROS Obtained: Yes All systems reviewed & no additional complaints except as documented Physical Exam General General appearance: alert, in no apparent distress and anxious Head Head exam: atraumatic and normocephalic Eye Eye exam: Present normal appearance, PERRL and EOMI ENT ENT exam: Present normal exam, normal oropharynx, mucous membranes moist and normal external ear exam Neck Neck exam: Present normal inspection, full ROM and trachea midline; Absent tenderness Chest Chest inspection: Present normal inspection and symmetric chest wall rise; Absent tenderness Respiratory Respiratory exam: Present normal lung sounds bilaterally; Absent respiratory distress, wheezes, stridor or accessory muscle use Cardiovascular Cardiovascular exam: Present regular rate and normal rhythm Abdominal Exam Abdominal exam: Present soft; Absent distention, tenderness or guarding Extremities Exam Extremities exam: Present normal inspection, full ROM and normal capillary refill; Absent tenderness or edema Back Exam Back exam: Present normal inspection and full ROM; Absent tenderness Neurological Exam Neurological exam: Present alert, oriented X3, CN II-XII intact and normal gait; Absent motor sensory deficit Psychiatric Psychiatric exam: Present anxious Skin Skin exam: Present warm and dry HEART Score HEART Score HEART Score assessment performed?: Yes History (anamnesis): Slightly suspicious ECG: Normal Age: <45 years Risk factors: No known risk factors Troponin: </= normal limit HEART Score: 0 Critical Care Critical Care Time Critical Care Time: No Medical Decision Making Sp[place]er Inquiry Pt receiving controlled substance: No Vital Signs Vital Signs: 05/04/24 18:03 05/04/24 20:15 Temperature 98.3 F 98.2 F Temperature Source Oral Oral Pulse Rate 74 Pulse Rate [Right] 78 Respiratory Rate 18 16 Blood Pressure 124/64 Blood Pressure [Right Arm] 137/85 Blood Pressure Mean [Right Arm] 102 Blood Pressure Source Automatic Cuff Blood Pressure Position Sitting 02 Sat by Pulse Oximetry 100 Oxygen Delivery Method Room Air Lab Data Labs: Lab Results 05/04/24 18:21: WBC 12.1 H, RBC 4.29, Hgb 13.1, Hct 39.6, MCV 92.3, MCH 30.5, MCHC 33.1, RDW 12.6, Plt Count 315, MPV 9.3, Neut % (Auto) 74.0, Lymph % (Auto) 20.7, [place] % (Auto) 4.0, Eos % (Auto) 0.4, Baso % (Auto) 0.4, Neut # (Auto) 8.9 H, Lymph # (Auto) 2.5, [place] # (Auto) 0.5, Eos # (Auto) 0.1, Baso # (Auto) 0.1, ESR 10, D-Dimer 0.34, Sodium 137, Potassium 3.7, Chloride 106, Carbon Dioxide 26, Anion Gap 8.7, BUN 11, Creatinine 0.60, Estimated Creat Clear 131, Estimated GFR 120, Est GFR ( Amer) 145, Glucose 98, Calcium 9.0, Total Bilirubin 0.6, AST 22, ALT 17, Alkaline Phosphatase 74, Troponin I < 0.01, C-Reactive Protein 2.1, Total Protein 7.0, Albumin 4.5, Globulin 2.5, Albumin/Globulin Ratio 1.8, TSH 2.11, Thyroxine (T4) 10.3, Serum HCG, Qual Negative 05/04/24 18:21 05/04/24 18:21 Response Orders (Tests/Meds): ED MEDICATIONS Discontinued Medications Generic Name Dose Route Start Last Admin Trade Name Rk PRN Reason Stop Dose Admin Acetaminophen 1,000 mg 05/04/24 18:14 05/04/24 18:24 Acetaminophen 1,000mg/100ml Vial IV 05/04/24 18:15 1,000 mg ONCE ONE Administration Belladonna Alkaloids 60 ml 05/04/24 18:14 05/04/24 18:24 Belladonna Alkaloids 60 Ml Ml PO 05/04/24 18:15 60 ml ONCE ONE Administration Hydroxyzine Pamoate 25 mg 05/04/24 18:28 05/04/24 18:31 Hydroxyzine Pamoate 25mg Capsule PO 05/04/24 18:29 25 mg ONCE ONE Administration ORDERS Category Date Time Status CXR 2 view (NOT portable) [XR chest 2V] Stat Exams 05/04/24 18:13 Completed CRP [C-Reactive Protein] Stat Lab 05/04/24 18:21 Completed Complete Blood Count Auto Diff Stat Lab 05/04/24 18:21 Completed Comprehensive Metabolic Panel Stat Lab 05/04/24 18:21 Completed D-Dimer Stat Lab 05/04/24 18:21 Completed ESR [Erythrocyte Sedimentation Rate] Stat Lab 05/04/24 18:21 Completed Serum [HCG Qualitative, Serum] Stat Lab 05/04/24 18:21 Completed T4 (Thyroxine) Stat Lab 05/04/24 18:21 Completed TSH [Thyroid Stimulating Hormone] Stat Lab 05/04/24 18:21 Completed Trop I [Troponin I] Stat Lab 05/04/24 18:21 Completed ECG Data Tracing #1: Attestation: I reviewed this ECG and interpreted as documented below: ECG Narrative: Sinus tachycardia with a ventricular rate [address] changes concerning for ischemia. Normal intervals ECG initial impression date: 05/04/24 ECG initial impression time: 18:09 MDM Narrative Medical Decision Narrative: In summary, this patient is a 28-year-old female presenting to the Emergency Department for evaluation of several months of chest pains, palpitations, shortness of breath, feeling of lump in her throat. Differential diagnoses considered include but are not limited to anxiety, panic attacks, ACS, PE, dysrhythmia, pericarditis, myocarditis. Ruling out the most morbid conditions drove assessment. I reviewed patient's past medical records and noted history of anxiety and history of THC use. As noted ED evaluations for flu, eustachian tube dysfunction. I also reviewed records and noted negative CT PE, negative CT soft tissue neck. On exam, the patient is well-appearing. She is very anxious appearing, tearful, and I feel her symptoms do likely fit with anxiety. She has had negative CT PE, negative soft tissue neck, negative workup at yesterday. Workup included CBC, CMP, troponin, D-dimer, TSH, T4, ESR, CRP test, chest x-ray, EKG. EKG demonstrate sinus tachycardia but is otherwise reassuring. Patient was given oral Vistaril, GI cocktail, IV Tylenol for symptomatic improvement. I independently interpreted chest x-ray prior to the radiologist read and noted no pneumothorax, no large focal consolidation. Please see their read for final interpretation. Labs were obtained that demonstrated mild leukocytosis which is nonspecific. Chemistry is reassuring with normal thyroid studies, negative troponin, negative D-dimer, no significant electrolyte derangements. On reassessment, patient had great improvement after administration of interventions above. I feel her symptoms are likely related to anxiety, especially given negative CTs obtained at . I feel she is appropriate for discharge home with further outpatient workup/evaluation. I do not feel that she requires admission or inpatient evaluation at this time. Strict return precautions given as well as prescription for Vistaril
--- NOTE | 2024-05-04 19:58 | PC.NURSE ---
Pt back from xray
[2024-05-04 20:00] LABS: Erythrocyte Sedimentation Rate 10 mm/hr (0-20)
--- NOTE | 2024-05-04 20:13 | PC.NURSE ---
provider at the bedside
[2024-05-04 20:15] VITALS: BP 124/64; PULSE 74; RESP 16; TEMP 36.8; O2SAT 100
== END 2024-05-04 20:23 | disposition home or self-care (01) ==
PROVIDERS: Emergency Provider Emergency Medicine; PCP Family Medicine
DX: F41.9 Anxiety disorder, unspecified (principal); R07.9 Chest pain, unspecified; R06.02 Shortness of breath; R22.1 Localized swelling, mass and lump, neck
CPT/HCPCS: 71046; 80053; 84436; 84443; 84484; 84703; 85025; 85378; 85651; 86140; 93005; 96374; 99284; J0131

== ENCOUNTER 2024-05-07 11:59 | Outpatient (CLI) | payer BC, SELFPAY ==
[2024-05-07 12:27] LABS: Basophils % 0.2 % (0.1-2.0); Hematocrit 39.9 % (37.0-47.0); Hemoglobin 13.1 g/dL (12.2-16.2); Lymphocytes # 1.8 K/mm3 (0.7-4.5); Lymphocytes % 9.6 % (10-50); Mean Corpuscular HGB Conc 32.8 g/dL (31.8-35.4); Mean Corpuscular Hemoglobin 30.5 pg (27.0-31.2); Mean Corpuscular Volume 92.8 fl (81-99); Mean Platelet Volume 9.5 fl (7.4-10.4); Monocytes # 0.6 K/mm3 (0.1-1.0); Neutrophils # 15.9 K/mm3 (1.8-7.8); Neutrophils % 86.7 % (37.0-80.0); Platelet Count 356 K/mm3 (142-424); Red Cell Distribution Width 12.4 % (11.5-17.5); White Blood Count 18.3 K/mm3 (4.8-10.8)
[2024-05-07 12:30] LABS: MANUAL DIFFERENTIAL MANUAL DIFFERENTIAL (MANUAL DIFF)
[2024-05-07 12:45] LABS: Albumin Level 4.8 g/dl (3.5-5.0); Chloride 105 mmol/L (98-107); Potassium 4.1 mmoL/L (3.5-5.1); Sodium 139 mmol/L (136-145)
[2024-05-07 12:47] LABS: Lymphocytes % 9 % (10-50); Monocytes % 4 % (2-9); Neutrophils % 87 % (42-76); Platelet Estimate Normal; RBC Morphology Normal; Total Cells Counted 100
[2024-05-07 12:48] LABS: Alanine Aminotransferase 15 U/L (12-78); Albumin/Globulin Ratio 2.1 (1.1-1.8); Alkaline Phosphatase 66 U/L (38-126); Anion Gap 12.1 mEq/L (5-15); Aspartate Amino Transferase 21 U/L (14-36); Bilirubin,Total 0.7 mg/dl (0.2-1.3); Blood Urea Nitrogen 9 mg/dl (7-17); Calcium 9.8 mg/dl (8.4-10.2); Carbon Dioxide 26 mmol/L (22.0-30.0); Estimated Glomerular Filt Rate 148 ml/min (>60); GFR (African American) 179 ML/MIN (>60); Globulin 2.3 g/dL (1.3-3.2); Glucose 105 mg/dl (74-100); Total Protein,Serum 7.1 g/dl (6.3-8.2)
[2024-05-07 13:08] LABS: Free T4 (Free Thyroxine) 0.81 ng/dl (0.78-2.19)
== END 2024-05-07 23:59 | disposition home or self-care (01) ==
LOC: LAB 12:00
PROVIDERS: PCP Nurse Practitioner Family; Visit Provider Nurse Practitioner
DX: R61 Generalized hyperhidrosis (principal); R68.89 Other general symptoms and signs; R59.9 Enlarged lymph nodes, unspecified
CPT/HCPCS: 36415; 80053; 84439; 84443; 85007; 85025; 85027

== ENCOUNTER 2024-05-08 14:36 | Outpatient (CLI) | payer BC, SELFPAY ==
--- NOTE | 2024-05-08 14:36 | US_ITS ---
FINAL REPORT CLINICAL HISTORY: left neck lymph node enlargement FINDINGS: ULTRASOUND SOFT TISSUE NECK Limited sonographic imaging of the soft tissues of the neck were obtained. There are multiple small lymph nodes bilaterally. Individual nodes measure up to 9 mm. These are nonspecific and not significantly enlarged. There is no mass or fluid collection. IMPRESSION: Nonspecific lymph nodes, bilaterally, are not significantly enlarged. Reviewed, Interpreted and Dictated by Reynaldo Bolden MD Transcribed by Lorene Prater Authenticated and [facility]
--- NOTE | 2024-05-08 14:36 | US_ITS ---
FINAL REPORT TECHNIQUE: Sonographic images of the thyroid were obtained. CLINICAL HISTORY: left neck lymph node enlargement FINDINGS: THYROID ULTRASOUND The right thyroid gland measures 0.3 x 2.0 x 1.6 cm. The parenchyma shows normal echogenicity. No dominant mass is seen. The left thyroid gland measures 4.3 x 1.7 x 1.5 cm. The parenchyma shows normal echogenicity. There is a 3 mm, hypoechoic, solid nodule consistent with a TI-RADS 4 nodule. IMPRESSION: Small, TI-RADS 4 nodule in the left thyroid lobe. No follow-up is recommended due to size. Reviewed, Interpreted and Dictated by Reynaldo Bolden MD Transcribed by Lorene Prater Authenticated and [facility]
== END 2024-05-08 23:59 | disposition home or self-care (01) ==
LOC: RAD 14:36
PROVIDERS: PCP Internal Medicine; Visit Provider Nurse Practitioner
DX: R68.89 Other general symptoms and signs (principal); R61 Generalized hyperhidrosis; R59.9 Enlarged lymph nodes, unspecified
CPT/HCPCS: 76536

== ENCOUNTER 2024-05-09 06:18 | Emergency (ER) | payer BC, SELFPAY ==
[2024-05-09] VITALS (11 sets, daily range): BP systolic 115–146; BP diastolic 72–109; PULSE 68–85; RESP 13–18; TEMP 36.6; O2SAT 96–100; BMI 22.0
--- NOTE | 2024-05-09 06:39 | HMH.EDGENADL ---
Discharge Plan Disposition Patient Disposition: Home, Self-Care Condition: Fair Prescriptions Prescriptions: New propranolol 10 mg tablet 10 mg PO BID Qty: 60 1RF No Action cetirizine [Zyrtec] 10 mg tablet 10 mg PO DAILY Qty: 30 3RF fluticasone propionate [Flonase Allergy Relief] 50 mcg/actuation spray,suspension 1 spray intranasal DAILY Qty: 16 2RF Rx Instructions: administer into each nostril Nexplanon 68 mg Implant 68 mg SUBDERMAL ONCE Referrals Follow up/Referrals: Provider,Referral, [Primary Care Provider] - See instructions Activity Restrictions/Add. Instructions Additional Instructions/Restrictions: You were evaluated in the emergency department today. As we discussed, it is very important to keep following up outpatient with ENT as well as with primary care for further assessment of your thyroid nodule and symptoms. Everything looks okay from an emergency medicine standpoint right now and you do not require admission to the hospital for evaluation at this time. We do not feel that there is anything acutely life-threatening to you going on currently, but we do feel that further assessment on an outpatient basis is very important. If you have new or concerning symptoms or become more concern for your health, please return to the ER, as we are happy to reassess you and make sure nothing is changed. We are trying you out on propranolol to see if this helps with your anxiety and symptoms. This medicine can cause slow heart rate and can also make you feel lightheaded or dizzy when you go from sitting to standing. If you experience any issues while taking this medication, stop it and follow-up with your primary care doctor for further instruction. Clinical Impressions Clinical Impression: Thyroid nodule, Anxiety, Elevated serum free T4 level Stand Alone Forms Stand Alone Forms: Work/School Release Instructions Patient Instructions: DI for Anxiety -- Adult, Propranolol (Cardiovascular), DI for Thyroid Nodule Print Language Print Language: Kiswahili Discharge ED Provider: Brielle Cruz General Adult HPI <Axel Austin MD - Last Filed: 05/09/24 07:21> General Chief complaint: Weakness Stated complaint: t rads 4 nodule thyroid, fainting, blurry vision Time Seen by Provider: 05/09/24 06:32 Mode of Arrival: Ambulatory Source of Information: Patient and Relative Description of Symptoms (Recalled from ER Triage Doc. by RN): Pt presents with generalized weakness since waking up to get a phone customer response representative this AM. Pt reports to being told that she has a t4 thyroid nodule . History of Present Illness HPI narrative: 28-year-old female presents for multiple complaints. She reports that her legs were weak and shaky this morning when she woke up. She also reports that at the same time she noticed that her vision was cloudy, felt like she was underwater . Denies any headache. Denies any double vision. No trauma. Reports history of a thyroid nodule. Denies any recent fever or infection. Related Data Home Medications ?Medication ?Instructions ?Recorded ?Confirmed etonogestrel 68 mg subdermal 68 mg subdermal ONCE 04/22/24 05/07/24 implant (Nexplanon) Previous Rx's ?Medication ?Instructions ?Recorded cetirizine 10 mg tablet (Zyrtec) 10 mg PO DAILY #30 tabs 05/05/24 fluticasone propionate 50 1 spray intranasal DAILY #16 grams 05/05/24 mcg/actuation nasal spray,suspension (Flonase Allergy Relief) propranolol 10 mg tablet 10 mg PO BID #60 tabs 05/09/24 Allergies Allergy/AdvReac Type Severity Reaction Status Date / Time No Known Allergies Allergy Verified 05/07/24 11:24 [facility] <Axel Austin MD - Last Filed: 05/09/24 07:21> [facility] Disclaimer: The information contained in this section may have been updated after the patient was seen, as this information can be updated by other users. Medical History (Updated 05/09/24 @ 09:41 by Brielle Cruz DO) Sensation of pressure Night sweats Swollen lymph nodes Syringoma Anxiety History of severe pre-eclampsia Mild tetrahydrocannabinol (THC) abuse Surgical History History of tympanostomy tube placement History of tonsillectomy Family History Other No significant family history Social History Smoking Status: Never smoker alcohol intake: never substance use type: marijuana current occupational status: other Travel in the last 8 weeks: None household members: other housing: other Other Medical History Have you received the Flu Vaccine for this season: No Have you received the Pneumonia Vaccine: No <Axel Austin MD - Last Filed: 05/09/24 07:21> ROS Obtained: Yes All systems reviewed & no additional complaints except as documented Physical Exam <Axel Austin MD - Last Filed: 05/09/24 07:21> General General appearance: alert and in no apparent distress Head Head exam: atraumatic and normocephalic Eye Eye exam: Present normal appearance, PERRL and EOMI ENT ENT exam: Present normal oropharynx and normal external ear exam Neck Neck exam: Present normal inspection and full ROM Chest Chest inspection: Present normal inspection and symmetric chest wall rise; Absent tenderness Respiratory Respiratory exam: Present normal lung sounds bilaterally; Absent respiratory distress Cardiovascular Cardiovascular exam: Present regular rate and normal rhythm Abdominal Exam Abdominal exam: Present soft; Absent distention, tenderness or guarding Extremities Exam Extremities exam: Present normal inspection; Absent edema or joint swelling Back Exam Back exam: Present normal inspection; Absent tenderness Neurological Exam Neurological exam: Present alert and oriented X3; Absent motor sensory deficit Psychiatric Psychiatric exam: Present normal affect and normal mood Skin Skin exam: Present warm, dry and normal color Lymphatic Lymphatic Findings: no adenopathy Medical Decision Making <Axel Austin MD - Last Filed: 05/09/24 07:21> Medical Records Medical records reviewed: Yes I reviewed the patient's medical records. Screening: Per USPSTF and CDC recommendations, given the prevalence of disease in our region, it is our hospital?s policy to screen for HIV and viral Hepatitis for all patients aged 18 and over and those with ongoing risk factors. Spenser Inquiry Pt receiving controlled substance: No Spenser was queried for this patient: No Vital Signs: 05/09/24 06:30 05/09/24 06:50 05/09/24 07:00 Temperature 97.8 F Temperature Source Oral Pulse Rate 81 Pulse Rate [Radial] 77 Respiratory Rate 18 14 Blood Pressure 128/91 H Blood Pressure [Right Arm] 131/109 H Blood Pressure Mean [Right Arm] 116 Blood Pressure Position [Right Arm] Sitting 02 Sat by Pulse Oximetry 99 96 100 Oxygen Delivery Method Room Air Room Air Room Air 05/09/24 07:30 05/09/24 08:00 05/09/24 08:30 Temperature Temperature Source Pulse Rate 78 74 74 Pulse Rate [Radial] Respiratory Rate Blood Pressure 129/89 123/72 115/77 Blood Pressure [Right Arm] Blood Pressure Mean [Right Arm] Blood Pressure Position [Right Arm] 02 Sat by Pulse Oximetry 100 100 100 Oxygen Delivery Method Room Air 05/09/24 09:00 05/09/24 09:30 05/09/24 10:00 Temperature Temperature Source Pulse Rate 77 85 69 Pulse Rate [Radial] Respiratory Rate Blood Pressure 135/86 134/91 H 146/88 H Blood Pressure [Right Arm] Blood Pressure Mean [Right Arm] Blood Pressure Position [Right Arm] 02 Sat by Pulse Oximetry 100 100 100 Oxygen Delivery Method Room Air Room Air 05/09/24 10:30 05/09/24 11:29 Temperature 97.8 F Temperature Source Pulse Rate 68 68 Pulse Rate [Radial] Respiratory Rate 13 Blood Pressure 135/95 H 135/95 H Blood Pressure [Right Arm] Blood Pressure Mean [Right Arm] Blood Pressure Position [Right Arm] 02 Sat by Pulse Oximetry 100 Oxygen Delivery Method Room Air Lab Data Lab results reviewed: Yes I reviewed the patient's lab results. Lab Results 05/09/24 06:51: WBC 9.4 D, RBC 4.21, Hgb 12.6, Hct 39.0, MCV 92.6, MCH 29.9, MCHC 32.3, RDW 12.7, Plt Count 298, MPV 9.5, Neut % (Auto) 76.3, Lymph % (Auto) 18.8, [place] % (Auto) 3.6, Eos % (Auto) 0.4, Baso % (Auto) 0.4, Neut # (Auto) 7.2, Lymph # (Auto) 1.8, [place] # (Auto) 0.3, Eos # (Auto) 0.0, Baso # (Auto) 0.0, Sodium 139, Potassium 3.5, Chloride 108 H, Carbon Dioxide 28, Anion Gap 6.5, BUN 9, Creatinine 0.60, Estimated Creat Clear 159, Estimated GFR 120, Est GFR ( Amer) 145, Glucose 96, Calcium 9.0, Phosphorus 2.8, Magnesium 2.2, Total Bilirubin 0.7, AST 22, ALT 17, Alkaline Phosphatase 64, Total Protein 6.6, Albumin 4.2, Globulin 2.4, Albumin/Globulin Ratio 1.8, TSH 2.67, Thyroxine (T4) 11.1 H, SARS-CoV-2 (PCR) Not detected, Influenza A Untype (PCR) Not detected, Influenza Type B (PCR) Not detected 05/09/24 07:00: Serum HCG, Qual Negative 05/09/24 06:51 05/09/24 06:51 Orders (Tests/Meds): ED MEDICATIONS Discontinued Medications Generic Name Dose Route Start Last Admin Trade Name Rk PRN Reason Stop Dose Admin Propranolol HCl 10 mg 05/09/24 09:34 05/09/24 10:06 Propranolol 20mg Tab PO 05/09/24 09:35 10 mg ONCE ONE Administration ORDERS Category Date Time Status CXR --portable [XR chest portable] Stat Exams 05/09/24 06:45 Completed CBC w/Auto Diff [Complete Blood Count Auto Diff] Stat Lab 05/09/24 06:51 Completed CMP [Comprehensive Metabolic Panel] Stat Lab 05/09/24 06:51 Completed MAG [Magnesium] Stat Lab 05/09/24 06:51 Completed Phosphorous Stat Lab 05/09/24 06:51 Completed Rapid PCR Covid and Flu A/B Stat Lab 05/09/24 06:51 Completed Serum [HCG Qualitative, Serum] Stat Lab 05/09/24 07:00 Completed T4 (Thyroxine) Stat Lab 05/09/24 06:51 Completed TSH [Thyroid Stimulating Hormone] Stat Lab 05/09/24 06:51 Completed Medical Decision Narrative: 28-year-old female with reported history of recently diagnosed thyroid nodule presents for leg weakness/shakiness bilaterally, cloudy vision , shortness of breath. History was obtained via interactive discussion with patient. On arrival, patient is [afebrile, hemodynamically stable, satting appropriately, alert, oriented x4, GCS 15], moving all extremities spontaneously. Full physical exam performed and significant for no significant physical exam abnormalities Differential includes but is not limited to thyroid storm, electrolyte derangement, dehydration, anxiety. Workup initiated including CBC CMP TSH T4 test COVID flu swab mag chest x-ray.. At this time care handed off to oncoming physician <Brielle Cruz, DO - Last Filed: 05/09/24 14:08> Vital Signs: 05/09/24 06:30 05/09/24 06:50 05/09/24 07:00 Temperature 97.8 F Temperature Source Oral Pulse Rate 81 Pulse Rate [Radial] 77 Respiratory Rate 18 14 Blood Pressure 128/91 H Blood Pressure [Right Arm] 131/109 H Blood Pressure Mean [Right Arm] 116 Blood Pressure Position [Right Arm] Sitting 02 Sat by Pulse Oximetry 99 96 100 Oxygen Delivery Method Room Air Room Air Room Air 05/09/24 07:30 05/09/24 08:00 05/09/24 08:30 Temperature Temperature Source Pulse Rate 78 74 74 Pulse Rate [Radial] Respiratory Rate Blood Pressure 129/89 123/72 115/77 Blood Pressure [Right Arm] Blood Pressure Mean [Right Arm] Blood Pressure Position [Right Arm] 02 Sat by Pulse Oximetry 100 100 100 Oxygen Delivery Method Room Air 05/09/24 09:00 05/09/24 09:30 05/09/24 10:00 Temperature Temperature Source Pulse Rate 77 85 69 Pulse Rate [Radial] Respiratory Rate Blood Pressure 135/86 134/91 H 146/88 H Blood Pressure [Right Arm] Blood Pressure Mean [Right Arm] Blood Pressure Position [Right Arm] 02 Sat by Pulse Oximetry 100 100 100 Oxygen Delivery Method Room Air Room Air 05/09/24 10:30 05/09/24 11:29 Temperature 97.8 F Temperature Source Pulse Rate 68 68 Pulse Rate [Radial] Respiratory Rate 13 Blood Pressure 135/95 H 135/95 H Blood Pressure [Right Arm] Blood Pressure Mean [Right Arm] Blood Pressure Position [Right Arm] 02 Sat by Pulse Oximetry 100 Oxygen Delivery Method Room Air Lab Data Lab Results 05/09/24 06:51: WBC 9.4 D, RBC 4.21, Hgb 12.6, Hct 39.0, MCV 92.6, MCH 29.9, MCHC 32.3, RDW 12.7, Plt Count 298, MPV 9.5, Neut % (Auto) 76.3, Lymph % (Auto) 18.8, [place] % (Auto) 3.6, Eos % (Auto) 0.4, Baso % (Auto) 0.4, Neut # (Auto) 7.2, Lymph # (Auto) 1.8, [place] # (Auto) 0.3, Eos # (Auto) 0.0, Baso # (Auto) 0.0, Sodium 139, Potassium 3.5, Chloride 108 H, Carbon Dioxide 28, Anion Gap 6.5, BUN 9, Creatinine 0.60, Estimated Creat Clear 159, Estimated GFR 120, Est GFR ( Amer) 145, Glucose 96, Calcium 9.0, Phosphorus 2.8, Magnesium 2.2, Total Bilirubin 0.7, AST 22, ALT 17, Alkaline Phosphatase 64, Total Protein 6.6, Albumin 4.2, Globulin 2.4, Albumin/Globulin Ratio 1.8, TSH 2.67, Thyroxine (T4) 11.1 H, SARS-CoV-2 (PCR) Not detected, Influenza A Untype (PCR) Not detected, Influenza Type B (PCR) Not detected 05/09/24 07:00: Serum HCG, Qual Negative Orders (Tests/Meds): ED MEDICATIONS Discontinued Medications Generic Name Dose Route Start Last Admin Trade Name Freq PRN Reason Stop Dose Admin Propranolol HCl 10 mg 05/09/24 09:34 05/09/24 10:06 Propranolol 20mg Tab PO 05/09/24 09:35 10 mg ONCE ONE Administration ORDERS Category Date Time Status CXR --portable [XR chest portable] Stat Exams 05/09/24 06:45 Completed CBC w/Auto Diff [Complete Blood Count Auto Diff] Stat Lab 05/09/24 06:51 Completed CMP [Comprehensive Metabolic Panel] Stat Lab 05/09/24 06:51 Completed MAG [Magnesium] Stat Lab 05/09/24 06:51 Completed Phosphorous Stat Lab 05/09/24 06:51 Completed Rapid PCR Covid and Flu A/B Stat Lab 05/09/24 06:51 Completed Serum [HCG Qualitative, Serum] Stat Lab 05/09/24 07:00 Completed T4 (Thyroxine) Stat Lab 05/09/24 06:51 Completed TSH [Thyroid Stimulating Hormone] Stat Lab 05/09/24 06:51 Completed Medical Decision Narrative: 28-year-old female with reported history of recently diagnosed thyroid nodule presents for leg weakness/shakiness bilaterally, cloudy vision , shortness of breath. History was obtained via interactive discussion with patient. On arrival, patient is [afebrile, hemodynamically stable, satting appropriately, alert, oriented x4, GCS 15], moving all extremities spontaneously. Full physical exam performed and significant for no significant physical exam abnormalities Differential includes but is not limited to thyroid storm, electrolyte derangement, dehydration, anxiety. Workup initiated including CBC CMP TSH T4 test COVID flu swab mag chest x-ray.. At this time care handed off to oncoming physician DO Anthony: I assumed care of the patient at 7 AM at time of departure of the previous provider. I reviewed patient's records and noted that she had a thyroid ultrasound that showed a 3 mm nodule, for which they recommended no further follow-up given size. I also reviewed prior records including evaluation by myself 05/04/2024 and evaluation at ED just prior to that. Labs obtained today are reassuring with no significant leukocytosis. She does have very mildly elevated T4 just at the upper limits of normal with normal TSH. It is possible she could have some component of hyperthyroidism, however her previous labs have been normal so I do not feel that this is likely clinically significant. I independently interpreted chest x-ray prior to radiology read and noted no acute focal consolidation, no pneumothorax. On my assessment of the patient, she is lying in bed in no acute distress with normal vitals on cardiac telemetry. She is neurologically intact and well-appearing. She expresses great concern that she has thyroid cancer and that something is going to happen to her. She notes that things are progressing very quickly and she is worried about her safety. She is worried that there is something going on acutely with her neck, as she feels a sensation of fullness and feels like she has swollen lymph nodes. She is post is concerned that this is likely not acute related to an upper respiratory infection, she is worried that it has been going on since February so she thinks it has something more serious. I advised her that even if she does have thyroid cancer, this is typically worked up as an outpatient given that she has no evidence of large neck masses causing any sort of airway compromise or other concern. I explained to her that there is not much that we can do from an ED perspective to further work this up, and based on reassuring workup and exam I do not feel that she requires admission for further workup. It is very important that she follow-up very closely outpatient for further evaluation and management. She expressed understanding and agreement. She states that the anxiety that she is having related to her health and the issues that she has going on or so severe that she is unable to sleep or eat. We had a very long discussion regarding the fact that I do not generally initiate long-term anxiety medications for patients from the emergency department, but she is worried about getting her something to hold her over until her follow-up appointments with ENT and primary care. After shared decision-making, we agreed to start the patient on propranolol. She was given 10 mg dose here which she tolerated well with no hemodynamic changes. Given reassuring workup and exam, I do feel patient is appropriate for discharge home with further outpatient follow-up. I provided with prescription for propranolol and instructions for close outpatient follow-up. She was discharged with strict return precautions. Procedures <Axel Austin MD - Last Filed: 05/09/24 07:21> Risk/Benefits of Procedure(s) Were Explained: Yes Critical Care <Axel Austin MD - Last Filed: 05/09/24 07:21> Critical Care Time Critical Care Time: No
--- NOTE | 2024-05-09 06:45 | XR_ITS ---
PROCEDURE INFORMATION: Exam: XR Chest Exam date and time: 05/09/2024 7:00 AM Age: 28 years old Clinical indication: Shortness of breath; Additional info: SOA, smoker x 8 yrs TECHNIQUE: Imaging protocol: Radiologic exam of the chest. Views: 1 view. COMPARISON: CR XR CHEST 2V 05/04/2024 7:28 PM FINDINGS: Lungs: Unremarkable. No consolidation. Pleural spaces: Unremarkable. No pleural effusion. No pneumothorax. Heart/Mediastinum: Unremarkable. No cardiomegaly. Bones/joints: Unremarkable. IMPRESSION: No acute findings.
[2024-05-09 07:08] LABS: Coronavirus 19, PCR Not Detected (NotDetected); Influenza A, PCR Not Detected (NotDetected); Influenza B, PCR Not Detected (NotDetected)
[2024-05-09 07:09] LABS: Basophils % 0.4 % (0.1-2.0); Eosinophils % 0.4 % (0.1-12.0); Hemoglobin 12.6 g/dL (12.2-16.2); Lymphocytes # 1.8 K/mm3 (0.7-4.5); Lymphocytes % 18.8 % (10-50); Mean Corpuscular HGB Conc 32.3 g/dL (31.8-35.4); Mean Corpuscular Hemoglobin 29.9 pg (27.0-31.2); Mean Corpuscular Volume 92.6 fl (81-99); Mean Platelet Volume 9.5 fl (7.4-10.4); Monocytes # 0.3 K/mm3 (0.1-1.0); Monocytes % 3.6 % (1.7-9.3); Neutrophils # 7.2 K/mm3 (1.8-7.8); Neutrophils % 76.3 % (37.0-80.0); Platelet Count 298 K/mm3 (142-424); Red Blood Count 4.21 M/mm3 (4.20-5.40); Red Cell Distribution Width 12.7 % (11.5-17.5); White Blood Count 9.4 K/mm3 (4.8-10.8)
[2024-05-09 07:38] LABS: HCG Qualitative, Serum Negative (Negative)
[2024-05-09 08:24] LABS: Alanine Aminotransferase 17 U/L (12-78); Albumin Level 4.2 g/dl (3.5-5.0); Albumin/Globulin Ratio 1.8 (1.1-1.8); Alkaline Phosphatase 64 U/L (38-126); Anion Gap 6.5 mEq/L (5-15); Aspartate Amino Transferase 22 U/L (14-36); Bilirubin,Total 0.7 mg/dl (0.2-1.3); Blood Urea Nitrogen 9 mg/dl (7-17); Carbon Dioxide 28 mmol/L (22.0-30.0); Chloride 108 mmol/L (98-107); Creatinine Clearance Estimated 159 mL/min (50-200); Estimated Glomerular Filt Rate 120 ml/min (>60); GFR (African American) 145 ML/MIN (>60); Globulin 2.4 g/dL (1.3-3.2); Glucose 96 mg/dl (74-100); Magnesium 2.2 mg/dl (1.6-2.3); Phosphorous 2.8 mg/dl (2.5-4.5); Potassium 3.5 mmoL/L (3.5-5.1); Sodium 139 mmol/L (136-145); Total Protein,Serum 6.6 g/dl (6.3-8.2)
[2024-05-09 08:43] LABS: T4 (Thyroxine) 11.1 ug/dl (5.53-11.0)
[2024-05-09 08:55] LABS: Thyroid Stimulating Hormone 2.67 uIU/mL (0.465-4.68)
[2024-05-09] MEDS: PROPRANOLOL 20MG TAB 10 MG PO (10:06)
== END 2024-05-09 11:30 | disposition home or self-care (01) ==
PROVIDERS: Emergency Medicine; Emergency Provider Emergency Medicine
DX: R79.89 Other specified abnormal findings of blood chemistry (principal); F41.9 Anxiety disorder, unspecified; E04.1 Nontoxic single thyroid nodule; R53.1 Weakness; H53.8 Other visual disturbances
CPT/HCPCS: 71045; 80053; 83735; 84100; 84436; 84443; 84703; 85025; 87636; 99283

== ENCOUNTER 2024-05-11 15:29 | Outpatient (CLI) | payer BC, SELFPAY ==
--- NOTE | 2024-05-11 15:29 | CT_ITS ---
FINAL REPORT TECHNIQUE: Multiple axial CT sections were performed through the face without IV contrast. Coronal and sagittal reconstruction images were performed. This study was performed with techniques to keep radiation doses as low as reasonably achievable (ALARA). Individualized dose reduction techniques using automated exposure control or adjustment of mA and/or kV according to the patient's size were employed. CLINICAL HISTORY: sinus pressure bilat pt states swollen lymph nodes COMPARISON: None FINDINGS: CT SINUSES WITHOUT CONTRAST: CT examination of the paranasal sinuses was performed without intravenous contrast. There are small bilateral maxillary sinus mucous retention cysts present, measuring up to 7 mm in size each. The paranasal sinuses are otherwise clear. No air-fluid levels are identified. There is nasal septal deviation 4 mm to the right. The middle ear cavities and mastoid air cells are unremarkable in appearance. IMPRESSION: No evidence of acute sinusitis. Mucous retention cysts measuring up to 7 mm in size in the maxillary sinuses bilaterally. Reviewed, Interpreted and Dictated by Soha Crocker MD Transcribed by Thuy Wen Authenticated and [facility]
== END 2024-05-11 23:59 | disposition home or self-care (01) ==
LOC: RAD 15:29
PROVIDERS: PCP Internal Medicine; Visit Provider Nurse Practitioner
DX: R61 Generalized hyperhidrosis (principal); R68.89 Other general symptoms and signs; R59.9 Enlarged lymph nodes, unspecified
CPT/HCPCS: 70486

== ENCOUNTER 2024-05-12 17:15 | Emergency (ER) | payer BC, SELFPAY ==
--- NOTE | 2024-05-12 17:21 | ED_ITS ---
<Statement entered by Brielle Cruz DO - 05/12/24 23:40> I was consulted by the RANDY, and we discussed the complexity of the problems being addressed. I approved the treatment and management plan for this patient's care in the emergency department, thus performing a substantive portion of the medical decision making. Birelle rCuz DO Discharge Plan Disposition Patient Disposition: Home, Self-Care Condition: Good Prescriptions Prescriptions: No Action cetirizine [Zyrtec] 10 mg tablet 10 mg PO DAILY Qty: 30 3RF fluticasone propionate [Flonase Allergy Relief] 50 mcg/actuation spray,suspension 1 spray intranasal DAILY Qty: 16 2RF Rx Instructions: administer into each nostril Nexplanon 68 mg Implant 68 mg SUBDERMAL ONCE propranolol 10 mg tablet 10 mg PO BID Qty: 60 1RF Referrals Follow up/Referrals: Rommel Dalal II, MD [Staff Physician] - See instructions Musa Okeefe DO [Primary Care Provider] - See instructions Activity Restrictions/Add. Instructions Additional Instructions/Restrictions: As we discussed I have recommended that Dr. Vazquez refer you Dr. Dalal. I have given Dr. Dalal's number in your discharge instruction. I recommend starting [id number] omeprazole at bedtime for now. If you have any worsening signs or symptoms follow-up with Dr. Vazquez sooner or return to the ER as needed. Clinical Impressions Clinical Impression: Dysphagia Qualifiers: Dysphagia type: unspecified Qualified Code(s): R13.10 - Dysphagia, unspecified Print Language Print Language: [place] African Discharge ED Provider: Brielle Cruz General Adult HPI General Chief complaint: Recheck/Abnormal Lab/Rx Stated complaint: diff breathing, feels like something in throat Time Seen by Provider: 05/12/24 17:21 History of Present Illness HPI narrative: Patient presents for evaluation of dysphagia. Patient has had symptoms of something in her throat/globus sensation that has been ongoing for several we eks. Patient states this started when she had the flu back in March. Patient has had multiple visits to multiple locations including the ER for the symptoms. She has been seen by her PCP ENT as well. She has had chest x-ray had neck ultrasound thyroid ultrasound repeat chest x-ray sinus CT in the same time. Patient states that is not getting any better and she is concerned that I cannot breathe . Patient also has multiple questions as to why she has lymph nodes and why her thyroid is enlarged and what the cause of long COVID is etc. Patient currently denies muffled voice difficulty in swallowing her own secretions or food although she does state that at nighttime she sometimes has a burning sensation in her throat. Patient also reports excessive mucus when she wakes up in the morning. Patient denies shortness of breath fever chills hemoptysis hematochezia melena nausea vomit diarrhea. Related Data Home Medications ?Medication ?Instructions ?Recorded ?Confirmed etonogestrel 68 mg subdermal 68 mg subdermal ONCE 04/22/24 05/07/24 implant (Nexplanon) Previous Rx's ?Medication ?Instructions ?Recorded cetirizine 10 mg tablet (Zyrtec) 10 mg PO DAILY #30 tabs 05/05/24 fluticasone propionate 50 1 spray intranasal DAILY #16 grams 05/05/24 mcg/actuation nasal spray,suspension (Flonase Allergy Relief) propranolol 10 mg tablet 10 mg PO BID #60 tabs 05/09/24 Allergies Allergy/AdvReac Type Severity Reaction Status Date / Time No Known Allergies Allergy Verified 05/07/24 11:24 [facility] Disclaimer: The information contained in this section may have been updated after the patient was seen, as this information can be updated by other users. Medical History (Updated 05/12/24 @ 17:59 by TONIO Greene) Sensation of pressure Night sweats Swollen lymph nodes Syringoma Anxiety History of severe pre-eclampsia Mild tetrahydrocannabinol (THC) abuse Surgical History History of tympanostomy tube placement History of tonsillectomy Family History Other No significant family history Social History Smoking Status: Never smoker alcohol intake: never substance use type: marijuana current occupational status: other Travel in the last 8 weeks: None household members: other housing: other Have you lived/traveled outside US in past 30 days?: No Contact w/someone who lives/traveled outside US past 30 days?: No Exposure to someone with infectious disease in past 14 days?: No Do you have a fever (greater than 100.4 F or 38 C)?: No Have you tested positive for COVID-19: No Exposed to someone with COVID-19 in past 14 days?: No Do you have a sore throat?: No Do you have a cough?: No Do you have any weakness?: No Do you have any diarrhea?: No Are you experiencing any unusual bleeding?: No Do you have any muscle aches/pain?: No Do you have any abdominal pain?: No Are you experiencing loss of taste or smell?: No Other Medical History Have you received the Flu Vaccine for this season: No Have you received the Pneumonia Vaccine: No ROS Obtained: Yes Systems reviewed as appropriate & no additional complaints except as documented Physical Exam General General appearance: alert and in no apparent distress Respiratory Respiratory exam: Present normal lung sounds bilaterally Cardiovascular Cardiovascular exam: Present regular rate Neurological Exam Neurological exam: Present alert and oriented X3 Medical Decision Making Medical Records Medical records reviewed: Yes I reviewed the patient's medical records. Screening: Per USPSTF and CDC recommendations, given the prevalence of disease in our region, it is our hospital?s policy to screen for HIV and viral Hepatitis for all patients aged 18 and over and those with ongoing risk factors. Spenser Inquiry Pt receiving controlled substance: No Vital Signs: 05/12/24 17:29 05/12/24 18:10 Temperature 98.4 F 98.0 F Temperature Source Oral Oral Pulse Rate 81 Pulse Rate [Left] 89 Respiratory Rate 16 16 Blood Pressure 123/84 Blood Pressure [Right Arm] 147/94 H Blood Pressure Mean [Right Arm] 111 Blood Pressure Source Automatic Cuff Blood Pressure Source [Right Arm] Automatic Cuff Blood Pressure Position Sitting Blood Pressure Position [Right Arm] Sitting 02 Sat by Pulse Oximetry 97 Oxygen Delivery Method Room Air Room Air Lab Data Lab results reviewed: Yes I reviewed the patient's lab results. Medical Decision Narrative: In summary patient is a 28-year-old female who presents to the emergency department for evaluation of self-reported dysphagia. Patient is hemodynamically stable upon arrival, afebrile. Physical exam is remarkable for no palpable cervical lymphadenopathy, her thyroid gland is soft and peers normal is not firm or hard. She has no palpable nodules. It has normal rise and fall with swallow. Patient's voice is normal she has no muffled voice sounds that she has no stridorous respirations breath sounds are clear and equal bilaterally to the bases without adventitious sounds or increased work of breathing. Patient has no epigastric tenderness to palpation.. Differential diagnosis includes postnasal drip versus esophagitis versus GERD and I considered the possibility of a mass effect of her thyroid however radiographically speaking via my informal interpretation she has no airway compromise trachea is patent with no stable appearance to her trachea thyroid is within normal limits of size and the 3 mm nodule has no radiographic features that are concerning that would warrant excision and there was significant for follow over time. I additionally considered that the patient may be having anxiety symptoms although she does not appear to be anxious currently and still has the similar sensation but patient reports its much worse at nighttime than in the daytime as well. Initial workup was considered with labs and imaging however patient has already had a fairly comprehensive workup of any abnormalities found thus far thus deferred. However patient does give a history that is questionable for possible GERD and/or esopha geal source of her globus sensation that has not yet been investigated.. Initial interventions were considered however patient has no findings currently that warrant intervention including no fever pain or swelling with a normal voice caliber and no stridorous respirations interventions are deferred. Thus with no need for further workup in the emergency department and no need for intervention I had a shared decision-making discussion with the patient regarding her findings that thus far and I have any encouraged and reassured patient that her lymph nodes are not of significant size or concern with no concerning features and likely reflect reactive nodes in the face of her influenza exposure and incidentally found, her thyroid is not significantly enlarged or has concerning features worrisome for any type of infectious process and while she does have a nodule it is of insignificant size currently to warrant immediate intervention or biopsy and is appropriate for following over time with ENT, and addressed the patient's sensation in that it is quite possible that what she may be experiencing is reflux versus eosinophilic esophagitis etc. and likely would benefit from a gastroenterology workup for completeness sake. Patient verbalized understanding and agreement and feels comfortable going home with continued follow-up with ENT and referral to GI for further workup for her globus sensation. Critical Care Critical Care Time Critical Care Time: No
[2024-05-12 17:29] VITALS: BP 147/94; PULSE 89; RESP 16; TEMP 36.9; O2SAT 97; BMI 22.0
[2024-05-12 18:10] VITALS: BP 123/84; PULSE 81; RESP 16; TEMP 36.7; O2SAT 98
== END 2024-05-12 18:10 | disposition home or self-care (01) ==
PROVIDERS: Emergency Provider Emergency Medicine; PCP Internal Medicine
DX: R13.10 Dysphagia, unspecified (principal)
CPT/HCPCS: 99281

== ENCOUNTER 2024-05-13 15:57 | Outpatient (CLI) | payer BC, SELFPAY ==
[2024-05-13 16:49] LABS: 25-OH Vitamin D, Total 22.9 ng/mL (30-100)
[2024-05-13 17:22] LABS: Vitamin B12 788 pg/mL (239-931)
[2024-05-13 18:20] LABS: Iron 113 ug/dL (37-170)
[2024-05-13 18:30] LABS: Total Iron Binding Capacity 382 ug/dL (265-497)
[2024-05-13 18:56] LABS: Ferritin 17.9 ng/ml (6.24-137)
== END 2024-05-13 23:59 | disposition home or self-care (01) ==
LOC: LAB 15:57
PROVIDERS: PCP Internal Medicine; Visit Provider Nurse Practitioner Family
DX: R13.10 Dysphagia, unspecified (principal); E55.9 Vitamin D deficiency, unspecified; Z68.21 Body mass index [BMI] 21.0-21.9, adult
CPT/HCPCS: 36415; 82306; 82607; 82728; 83540; 83550

== ENCOUNTER 2024-05-19 12:20 | Outpatient (CLI) | payer BC, SELFPAY ==
--- NOTE | 2024-05-19 12:42 | ECG_ITS ---
APPROVED REPORT Exam: Resting ECG HR:72 bpm ECG Measurements Heart Rate 72 AXES WA 166 P 73 QRSd 81 QRS 73 QT 362 T 54 QTc 386 Conclusion SINUS RHYTHM NORMAL ECG UNCONFIRMED REPORT Electronically signed by : Silver Lutz MD 05/19/2024 21:05:48
== END 2024-05-19 23:59 | disposition home or self-care (01) ==
LOC: RT 12:22
PROVIDERS: PCP Family Medicine; Visit Provider Family Medicine
DX: R00.2 Palpitations (principal)
CPT/HCPCS: 93005; 93270

== ENCOUNTER 2024-06-05 11:02 | Outpatient (CLI) | payer BC, SELFPAY ==
--- NOTE | 2024-06-05 11:00 | US_ITS ---
FINAL REPORT CLINICAL HISTORY: enlarged lymph nodes COMPARISON: 05/08/2024 FINDINGS: Limited sonographic images were obtained of the soft tissues of the neck in the area of interest. There are scattered subcentimeter lymph nodes which are normal in size by imaging criteria. No significant interval enlargement is noted. The submandibular glands are normal. There is no evidence of abscess. IMPRESSION: Normal-appearing lymph nodes without evidence of mass or abscess. Reviewed, Interpreted and Dictated by Soha Crocker MD Transcribed by Flaca Harrell Authenticated and [facility]
== END 2024-06-05 23:59 | disposition home or self-care (01) ==
LOC: RAD 11:03
PROVIDERS: PCP Family Medicine; Visit Provider Family Medicine
DX: E04.1 Nontoxic single thyroid nodule (principal); R59.9 Enlarged lymph nodes, unspecified
CPT/HCPCS: 76536

== ENCOUNTER 2024-06-23 10:00 | Outpatient (RCR) | payer BC, SELFPAY | END 2024-06-23 23:59 | disposition home or self-care (01) | LOC: ST 10:00 | PROVIDERS: Visit Provider Student in an Organized Health Care Education/Training Program | DX: S03.00XA Dislocation of jaw, unspecified side, initial encounter (principal) | CPT/HCPCS: 92610 ==

== ENCOUNTER 2024-08-19 11:48 | Outpatient (CLI) | payer BC, SELFPAY ==
--- OUTSIDE RECORDS SUMMARY | 2024-08-05 11:35 | XMS_ITS | Encounter Summary ---
Author Organization [facility] Address [address] [place] [address] Care Team Providers Care Parts Department Manager Name Role Phone ShimonPhillip crumica EMILIANO Primary Care Provider [phone] Reason for Referral * Imaging (Urgent) - Closed Specialty Diagnoses / Procedures Referred By Marvel ovalle Referred To Contact Radiology Diagnoses Cervical lymphadenopathy Procedures CT Soft Tissue Neck w IV Contrast Xiang Sanon MD [address] [address] Phone: tel: fax: Referral ID Status Reason Start Date Expiration Date Visits Re quested Visits Authorized [id number] Closed 08/05/2024 02/04/2026 1 1 Reason for Visit * Imaging (Urgent) - Closed Specialty Diagnoses / Procedures Referred By Marvel ovalle Referred To Contact Radiology Diagnoses Cervical lymphadenopathy Procedures CT Soft Tissue Neck w IV Contrast Xiang Sanon MD [address] [address] Phone: tel: fax: Referral ID Status Reason Start Date Expiration Date Visits Re quested Visits Authorized [id number] Closed 08/05/2024 02/04/2026 1 1 Encounter Details Date Type Department Care Team (Latest Contact Info) Description 08/05/2024 11:35 AM EDT - 08/05/2024 11:59 PM EDT Hospital Encounter [facility] [address] [place] [address] Cervical lymphadenopathy Discharge Disposition: Home or Self Care Social History Tobacco Use Types Packs/Day Years Used Date Smoking Tobacco: Every Day Cigarettes Started: 2016 Smokeless Tobacco: Never Alcohol Use Standard Drinks/Week Comments Yes 0 (1 standard drink = 0.6 oz pur e alcohol) PHQ-2 Answer Date Recorded Patient Health Questionnaire-2 Score 0 08/10/2024 Comments Unknown Sex and Gender Information Value Date Recorded Sex Assigned at Female 08/05/2024 10:42 AM EDT Legal Sex Female 8:08 PM EDT Gender Identity Female 08/05/2024 10:42 AM EDT Sexual Orientation Straight 08/05/2024 10 :42 AM EDT documented as of this encounter Functional Status * Over the past 2 weeks, how often have you been bothered by any of the following problems? Question Answer Date of Assessment Author Little interest or pleasure in doing things Not at all 08/10/2024 8:34 AM Kaelyn Adam Feeling down, depressed, or hopeless Not at all 08/10/2024 8:34 AM RISAT Kaelyn Plasencia Patient Health Questionnaire -2 Score 0 08/10/2024 8:34 AM Kaelyn Adam * Calculated C-SSRS Risk Score (Lifetime/Recent) Answer Date of Assessment Author No Risk Indicated 08/10/2024 8:34 AM Kaelyn Adam * Question Answer Date of Assessment Author 1. Wish to be (Past 1 Month) No 025 8:34 AM Kaelyn Adam 2. Non-Specific Active Suici coleen Thoughts (Past 1 Month) No 08/10/2024 8:34 AM Fatemeh Adam 6. Suicidal Behavior (Lifetime) No 8:34 AM Kaelyn Adam documented as of this encounter Medications at Time of Discharge cetirizine (ZyrTEC) 10 MG tablet Take 1 tablet by mouth daily. 05/05/2024 cholecalciferol (Vitamin D-3) 250 MCG (94326 UT) capsule Take 1 capsule by mouth 1 (one) time per week. 05/19/2024 fluticasone (Flonase) 50 MCG/ACT nasal spray use 1 spray(s) in each nostril once daily 05/05/2024 hydrOXYzine pamoate (Vistaril) 25 MG capsule TAKE 1 CAPSULE BY MOUTH EVERY 8 HOURS NEEDED FOR PANIC ATTACK 05/05/2024 nitrofurantoin, macrocrystal-mono hydrate, (Macrobid) 100 MG capsule take 1 capsule by mouth twice daily for 5 days 05/26/2024 propranolol (Inderal) 10 MG tablet Take 1 tablet by mouth in the morning and 1 tablet before bedtime. 05/09/2024 valACYclovir (Valtrex) 1 g tablet Take 1 tablet by mouth in the morning and 1 tablet before bedtime. 04/01/2024 documented as of this encounter Miscellaneous Notes * Marina Stoner - Boom Gonsales - 08/05/2024 11:36 AM EDT Images from the original note were not included. [address] or X-ray Contrast Reaction For your imaging test today, we gave you a contrast medicine through the IV. This contrast is oftenused in these tests. Today, the contrast caused you to have a side effect and adverse reaction. Most reactions to contrast are mild. The highest risk of a reaction happens in the first 20 minutes after getting the contrast. When you go home, please follow these instructions: ? You should start to feel better and your symptoms should go away. If your symptoms get worse, go to the nearest Emergency Room right away. ? If you have imaging tests in the future, always tell the imaging staff about today?s reaction to contrast. Mention this reaction whenever you are asked about your allergy history. ? Expect a phone call from us within 24 hours to check on your condition. ? If you need to speak with a Emergency Radiology doctor, call [phone]. documented in this encounter Plan of Treatment Not on file documented as of this encounter Procedures Procedure Name Priority Date/Time Associated Diagnosis Comments CT SOFT TISSUE NECK W IV CONTRAST Routine 08/05/2024 12:34 PM EDT Cervical lymphadenopathy documented in this encounter Results * CT Soft Tissue Neck w IV Contrast (08/05/2024 12:34 PM EDT) Anatomical Region Laterality Modality Neck Computed Tomogra phy Impressions 08/06/2024 1:59 AM EDT 1. Minimally prominent level 5 nodes stable compared to the study 05/03/2024. No new or necrotic adenopathy. The results were faxed/finalized only (1:58 AM ET). If you would like to discuss this case directly please call to review. Alyson Barrett M.D. This report has been electronically signed and verified by the Radiologist whose name is printed above. This report contains privileged and confidential information and is intended solely for the use of the individual or entity to which it is addressed. If you are not the intended recipient of this report, you are hereby notified that any copying, distribution, dissemination or action taken in relation to the contents of this report is strictly prohibited and may be unlawful. If you have received this report in error, please notify the sender immediately at [phone] and permanently delete the original report and destroy any copies or printouts. Narrative 08/06/2024 1:59 AM EDT [facility] - Phone Outpatient NAME: Aide Del Rio DATE OF EXAM: 08/05/2024 Patient No: [id number] Physician: Yuriy Date of : 1995 Past Medical/Surgical History (entered by technologist): Symptoms/Reason For Exam (entered by technologist): Metastatic disease evaluation Tech Notes (entered by technologist): 100 mL Intravenous iohexol (OMNIPaque) 300 MG/ML injection Dx: Cervical lymphadenopathy Comments: first available f/u Fab same day CT neck with contrast 06/02 CT scan of the neck from 05/03/2024, ultrasound of the neck and thyroid from 05/08/[address] scan of the sinuses from 05/11/2024 and I included photographs in the note and discussed my findings with the patient. There is no evidence of suspiciously enlarged lymphadenopathy and the ultrasound revealed a 3 mm nodule in the left thyroid lobe. I discusse Additional History (per Vision Radiologist): Contrast Agent and Dose: 100 mL Omnipaque 300 IV Automated exposure control was used for radiation dose reduction. Total DLP 296 mGycm Comparison: CT soft tissue neck 05/03/2024 CT NECK WITH CONTRAST FINDINGS: Diagnostic quality: Adequate Lymph nodes: Mildly prominent bilateral level 5 nodes again appreciated Examples: Left posterior triangle node measuring 1.0 x 0.5 cm (series 3 image 135 Right posterior triangle node measuring 1.1 x 0.5 cm (series 3 image 135). No new or necrotic adenopathy. Pharynx and larynx: No focal abnormalities. Oral cavity: Structures are symmetric. Parapharyngeal soft tissues: No mass lesions or collections. Vasculature: Major vascular structures within the neck enhance normally. Salivary glands: No focal abnormalities involving the parotid glands and submandibular glands. Thyroid glands: Subcentimeter left posterior thyroid nodule. Lung apices: No acute findings. Intracranial structures: Limited visualization of the middle and posterior cranial fossa appears normal. Sinuses: Visualized paranasal sinuses and mastoid air cells, tympanic cavities well aerated. Osseous structures: No acute findings. Procedure Note Alyson Barrett MD - 08/06/2024 [facility] Radiology - Phone Outpatient NAME: Aide Del Rio DATE OF EXAM: 08/05/2024 Patient No: [id number] Physician: Yuriy Date of : 1995 Past Medical/Surgical History (entered by technologist): Symptoms/Reason For Exam (entered by technologist): Metastatic diseaseevaluation Tech Notes (entered by technologist): 100 mL Intravenous iohexol(OMNIPaque) 300 MG/ML injection Dx: Cervical lymphadenopathy Comments: first available f/u Fab same day CT neck with contrast 06/02 CT scan of the neck from 05/03/2024, ultrasound of the neck and thyroidfrom 05/08/[address] scan of the sinuses from 05/11/2024 and I includedphotographs in the note and discussed my findings with the patient. Thereis no evidence of suspiciously enlarged lymphadenopathy and the ultrasoundrevealed a 3 mm nodule in the left thyroid lobe. I discusse Additional History (per Vision Radiologist): Contrast Agent and Dose: 100 mL Omnipaque 300 IV Automated exposure control was used for radiation dose reduction. TotalDLP 296 mGycm Comparison: CT soft tissue neck 05/03/2024 CT NECK WITH CONTRAST FINDINGS: Diagnostic quality: Adequate Lymph nodes: Mildly prominent bilateral level 5 nodes again appreciated Examples: Left posterior triangle node measuring 1.0 x 0.5 cm (series 3 image 135 Right posterior triangle node measuring 1.1 x 0.5 cm (series 3 image 135).No new or necrotic adenopathy. Pharynx and larynx: No focal abnormalities. Oral cavity: Structures are symmetric. Parapharyngeal soft tissues: No mass lesions or collections. Vasculature: Major vascular structures within the neck enhance normally. Salivary glands: No focal abnormalities involving the parotid glands andsubmandibular glands. Thyroid glands: Subcentimeter left posterior thyroid nodule. Lung apices: No acute findings. Intracranial structures: Limited visualization of the middle and posteriorcranial fossa appears normal. Sinuses: Visualized paranasal sinuses and mastoid air cells, tympaniccavities well aerated. Osseous structures: No acute findings. IMPRESSION: 1. Minimally prominent level 5 nodes stable compared to the study05/03/2024. No new or necrotic adenopathy. The results were faxed/finalized only (1:58 AM ET). If you would like todiscuss this case directly please call to review. Alyson Barrett M.D. This report has been electronically signed and verified by the Radiologistwhose name is printed above. This report contains privileged and confidential information and isintended solely for the use of the individual or entity to which it isaddressed. If you are not the intended recipient of this report, you arehereby notified that any copying, distribution, dissemination or actiontaken in relation to the contents of this report is strictly prohibitedand may be unlawful. If you have received this report in error, pleasenotify the sender immediately at [phone] and permanently delete theoriginal report and destroy any copies or printouts. us Xiang Sanon MD IMG CT PROCEDURES Final Result documented in this encounter Visit Diagnoses Diagnosis Cervical lymphadenopathy Enlargement of lymph nodes documented in this encounter Administered Medications Inactive Administered Medications - up to 3 most recent administrations Medication Order MAR Action Action Date Dose Rate Site iohexol (OMNIPaque) 300 MG/ML injection 100 mL 100 mL, Intravenous, Once in imaging, 1 dose, Starting on Sat08/05/24 at 1155, Until Sat08/05/24 at 1229, Routine, Imaging Protocol Orders Given 08/05/2024 12:29 PM EDT 100 mL documented in this encounter Additional Health Concerns Assessment Noted Time A fall risk assessment has been complete d for the patient 06/02/2024 8:17 AM EDT A Body Mass Index follow-up plan has been documented for the patient 06/02/2024 8:45 AM EDT documented as of this encounter Care Teams Parts Department Manager Relationship Specialty Start Date End Date Jaquelin Robins APRN [address] [place] [address] PCP - General 08/05/24 documented as of this encounter
--- OUTSIDE RECORDS SUMMARY | 2024-08-10 08:30 | XMS_ITS | Encounter Summary ---
Author Organization [facility] Address [address] [place] [address] Care Team Providers Care Director It Name Role Phone Ela Robins APRN Primary Care Provider [phone] Reason for Referral * Consultation (Routine) - Authorized Specialty Diagnoses / Procedures Referred By Contac t Referred To Contact Psychiatry Diagnoses Anxiety Xiang Sanon MD [address] [facility] [address] [place] [address] Phone: tel: fax: Referral ID Status Reason Start Date Expiration Date Visits Requested Visits Authorized [id number] Authorized Specialty Services Required 08/10/2024 02/09/2026 1 1 Scheduling Instructions referral to Psychiatry in [place] please Reason for Visit * Reason Comments Follow-up Encounter Details Date Type Department Care Team (Latest Contact Info) Description 08/10/2024 8:30 AM EDT Office Visit [facility] Head, Neck & Respiratory [address] [place] [address] Xiang Sanon MD [id number] [place] [address] Anxiety (Primary Dx); Cervical lymphadenopathy Social History Tobacco Use Types Packs/Day Years Used Date Smoking Tobacco: Some Days Cigarettes Started: 02/26/2016 Smokeless Tobacco: Never Alcohol Use Standard Drinks/Week Comments Yes 0 (1 standard drink = 0.6 oz pur e alcohol) PHQ-2 Answer Date Recorded Patient Health Questionnaire-2 Score 0 08/10/2024 Comments No Sex and Gender Information Value Date Recorded Sex Assigned at Female 08/05/2024 10:42 AM EDT Legal Sex Female 8:08 PM EDT Gender Identity Female 08/05/2024 10:42 AM EDT Sexual Orientation Straight 08/05/2024 10 :42 AM EDT documented as of this encounter Last Filed Vital Signs Vital Sign Reading Time Taken Comments Blood Pressure 139/86 08/10/2024 8:32 AM EDT Pulse 79 08/10/2024 8:32 AM EDT Temperature 36.7 C (98 F) 08/10/2024 8:32 AM EDT Respiratory Rate 16 08/10/2024 8:32 AM EDT Oxygen Saturation 100% 08/10/2024 8:32 AM EDT Inhaled Oxygen Concentration - - Weight 67 kg (147 lb 11.3 oz) 08/10/2024 8:32 AM EDT Height 180.3 cm (5' 11 ) 08/10/2024 8:32 AM EDT Body Mass Index 20.6 08/10/2024 8:32 AM EDT documented in this encounter Functional Status * Over the past 2 weeks, how often have you been bothered by any of the following problems? Question Answer Date of Assessment Author Little interest or pleasure in doing things Not at all 08/10/2024 8:34 AM EDT Kaelyn Plasencia Feeling down, depressed, or hopeless Not at all 08/10/2024 8:34 AM EDT Kaelyn Plasencia Patient Health Questionnaire -2 Score 0 08/10/2024 8:34 AM EDT Kaelyn Plasencia * Calculated C-SSRS Risk Score (Lifetime/Recent) Answer Date of Assessment Author No Risk Indicated 08/10/2024 8:34 AM EDT Kaelyn Plasencia * Question Answer Date of Assessment Author 1. Wish to be (Past 1 Month) No 025 8:34 AM EDT Kaelyn Plasencia 2. Non-Specific Active Suici coleen Thoughts (Past 1 Month) No 08/10/2024 8:34 AM EDT Fatemeh Plasencia 6. Suicidal Behavior (Lifetime) No 8:34 AM EDT Luis Angel Kaelyn T documented as of this encounter Miscellaneous Notes * Addendum Note - Ela Mccann RN - 08/10/2024 8:30 AM EDTAddended by: ELA MCCANN on: 08/10/2024 09:06 AM Modules accepted: Orders * Progress Notes - Xiang Sanon MD - 08/10/2024 8:30 AM EDT Images from the original note were not included. Ms. Aide Del Rio is a very pleasant 28 y.o. patient who is returning to the clinic today for follow-up. He was last seen in my clinic on 06/02/2024 and returning with a CT scan of the neck. She was initially sent to my clinic in consultation for evaluation and management of her cervical lymphadenopathy. The patient history started on March 27, 1999 April 08, 2024 1025 with the flu. This resolved and then she developed greenish productive cough and diagnosed with pneumonia. She underwent CT scanof the neck and CT angio of the chest on 05/03/2024 because of chest pain and these were normal. She started having tingling sensation of the left face since 05/04/2024. She underwent ultrasound of the neck/thyroid on 05/08/[address] scan of the sinus on 05/11/2024 and these did not reveal any abnormalities. She was then recommended consult with me for evaluation and management. CT scan of the neck from 08/05/2024 revealed 1 and 1.1 cm lymph nodes in left than right level 5. He has been doing well since last visit and she has some lymph nodes that show up and then resolve. The patient denied otalgia, otorrhea, hearing loss, vertigo or tinnitus. She denied having sinonasal symptoms, postnasal drip, epistaxis, nasal congestion/obstruction or anosmia/hyposmia. She also denied dysphagia, odynophagia, dysphonia, dyspepsia, dyspnea or reflux disease. The patient's complete review of system from 08/10/24 was performed today. All systems were negative except for those mentioned in the HPI. Radiographs: - CT scan of the sinus: . 05/11/2024: No evidence of sinusitis, mucous retention cyst in the maxillary sinuses bilaterally - CT scan of the neck: . 05/03/2024: No evidence of disease in the head and neck region . 08/05/2024: Left posterior lymph node measuring 1 cm in right posterior node measuring 1.1 cm, stable - Ultrasound of the neck/thyroid: . 05/08/2024: Nonspecific bilateral lymph nodes in the neck, not significantly enlarged, the largestmeasuring 9 mm. Right thyroid lobe measures 2 cm, left thyroid gland measures 4.3 cm. 3 mm solid nodule TI-RADS 4 on the left side. I independently reviewed the images and discussed them with the patient. I do agree with the interpretation. Surgeries: -None with Aouad Pathology: -N/A Allergies: No Known Allergies Past medical history: As in history of present illness Past surgical history: Tonsillectomy adenoidectomy as a child placement of 4 sets of ear tubes bilaterally Family history: reviewed and consistent with stomach cancer in her grandfather Social history: Former social smoker and heavy drinker, quit completely. PHYSICAL EXAMINATION: Visit Vitals BP 139/86 Pulse 79 Temp 36.7 ??C (98 ??F) (Oral) Ht 1.803 m (5' 11 ) Wt 67 kg (147 lb 11.3 oz) SpO2 100% BMI 20.60 kg/m?? General: she is a very healthy-appearing 28 y.o. patient, alert and oriented x3, in no acute distress, well nourished, well developed. Psychiatric evaluation: Normal mood and affect, very pleasant and cooperative. Otoscopy: did not reveal any cerumen impaction. Tympanic membranes are normal without any middle ear effusions. Nasal cavity examination: Septum is midline. I did not see any pus or polyps. Oral cavity examination: The buccal mucosa, lips, gingiva, retromolar trigone, alveolar ridge, floor of mouth, tongue and palate unremarkable. Oropharynx: Tonsils are unremarkable bilaterally. Neck: soft and supple. I did not feel any enlarged lymphadenopathy. Mild tenderness of left TMJ. Eyes: Extraocular movements are intact bilaterally. PERRLA. Neurological examination: Cranial nerves II-XII are grossly intact. Skin of the neck and face: did not reveal any evidence of significant rashes or suspicious appearing nevi or other concerning lesions. Endocrine examination: I do not feel any thyroid nodules. No thyromegaly. Respiratory: chest is symmetrical, breathing comfortably without effort. IMPRESSION: 1- normal ENT examination 2- mild left TMJ disorder 3- anxiety RECOMMENDATIONS: I discussed those findings with the patient and I answered her questions to the best of my ability. The patient's physical examination is unremarkable except for mild TMJ disorder on the left side and mild tightness of bilateral SCM. I independently and thoroughly reviewed the patient's CT scan of the neck from 08/05/2024 and she has small lymph nodes in the neck, not suspicious per criteria and size. I discussed the findings withthe patient and I included a photograph of the CT scan in the note. Regarding the patient's cervical lymphadenopathy, I recommended a follow up with her primary care physician. Regarding her anxiety, I recommended evaluation by psychiatry and she is in agreement with my plan.We sent a referral to see [facility]ry [facility]. *Digital speech recognition software was used to dictate this note and, despite all efforts to proofread, some dictation errors may occur. If you have any questions, please do not hesitate to contactme. Xiang Sanon MD MS FACS Membership Correspondent Head & Neck Oncology Thyroid/Parathyroid Surgery Rhinology & Skull Base Surgery documented in this encounter Plan of Treatment Scheduled Referrals Name Type Priority Associated Diagnoses Order Schedule Ambulatory referral to Psychiatry Outpatient Referral Routine Anxiety Expected: 08/10/2024 (Approximate), Expires: 02/11/2026 documented as of this encounter Visit Diagnoses Diagnosis Anxiety- Primary Anxiety state, unspecified Cervical lymphadenopathy Enlargement of lymph nodes documented in this encounter Additional Health Concerns Assessment Noted Time A fall risk assessment has been complete d for the patient 08/10/2024 8:36 AM EDT A Body Mass Index follow-up plan has been documented for the patient 08/10/2024 9:01 AM EDT documented as of this encounter Care Teams Director It Relationship Specialty Start Date End Date Ela Robins APRN [address] [place] [address] PCP - General 08/05/24 documented as of this encounter
--- OUTSIDE RECORDS SUMMARY | 2024-08-19 11:51 | XMS_ITS | Encounter Summary ---
Author Organization Healthcare Address [address] [place] [address] Care Team Providers Care Vocational Ed Instructor Name Role Phone System, Provider Not In MD Primary Care Provider Unavailable Jaquelin Robins APRN Primary Care Provider Encounter Details Date Type Department Care Team (Late st Contact Info) Description 05/08/2024 Orders Only External Location [address] [place] [address] Lilibeth Sutton APRN [address] [place] [address] [place] [address] Social History Tobacco Use Types Packs/Day Years Used Date Smoking Tobacco: Never Assessed Comments Unknown Sex and Gender Information Value Date Recorded Sex Assigned at Female 08/05/2024 10:42 AM EDT Legal Sex Female 8:08 PM EDT Gender Identity Female 08/05/2024 10:42 AM EDT Sexual Orientation Straight 08/05/2024 10 :42 AM EDT documented as of this encounter Plan of Treatment Not on file documented as of this encounter Procedures Procedure Name Priority Date/Time Associated Diagnosis Comments US OUTSIDE IMAGES 05/08/2024 2:49 PM EDT documented in this encounter Results * US OUTSIDE IMAGES (05/08/2024 2:49 PM EDT) Anatomical Region Laterality Modality Ultrasound 05/08/2024 2:49 PM EDT us Lilibeth Sutton APRN IMG US PROCEDURES Final Result documented in this encounter Visit Diagnoses Not on filedocumented in this encounter Care Teams Vocational Ed Instructor Relationship Specialty Start Date End Date System, Provider Not In, [place] [address] PCP - General Family Medicine 05/03/24 08/04/24 Jaquelin Robins APRN [address] [place] [address] PCP - General 08/05/24 documented as of this encounter
--- OUTSIDE RECORDS SUMMARY | 2024-08-19 11:51 | XMS_ITS | Encounter Summary ---
Author Organization Healthcare Address [address] [place] [address] Care Team Providers Care Pocket Assembler Name Role Phone System, Provider Not In MD Primary Care Provider Unavailable Jaquelin Robins APRN Primary Care Provider Encounter Details Date Type Department Care Team (Late st Contact Info) Description 05/04/2024 Orders Only External Location [address] [place] [address] Brielle Cruz, [address] [place] [address] Social History Tobacco Use Types Packs/Day Years [...] Procedure Name Priority Date/Time Associated Diagnosis Comments XR OUTSIDE IMAGES 05/04/2024 7:28 PM EDT documented in this encounter Results * XR OUTSIDE IMAGES (05/04/2024 7:28 PM EDT) Anatomical Region Laterality Modality Radiographic Eileen ging 05/04/2024 7:28 PM EDT Brielle RAHMANG XR PROCEDURES Final Result documented in this encounter Visit Diagnoses Not on filedocumented in this encounter Care Teams Pocket Assembler Relationship Specialty Start Date End Date System, Provider Not In, [place] [address] PCP - General Family Medicine 05/03/24 08/04/24 Jaquelin Robins APRN [address] [place] [address] PCP - General 08/05/24 documented as of this encounter
--- OUTSIDE RECORDS SUMMARY | 2024-08-19 11:51 | XMS_ITS | Encounter Summary ---
Author Organization Healthcare Address [address] [place] [address] Care Team Providers Care Pyrotechnics Press Tender Name Role Phone Jaquelin Robins APRN Primary Care Provider [phone] Reason for Referral * Imaging (Urgent) - Closed Specialty Diagnoses / Procedures Referred By Marvel ovalle Referred To Contact Radiology Diagnoses Cervical lymphadenopathy Procedures CT Soft Tissue Neck w IV Contrast Xiang Sanon MD [address] [address] Phone: tel: fax: Referral ID Status Reason Start Date Expiration Date Visits Re quested Visits Authorized [id number] Closed 08/05/2024 02/04/2026 1 1 Encounter Details Date Type Department Care Team (Late st Contact Info) Description 08/05/2024 Orders Only Pav CC Head, Neck & Respiratory [address] [facility]nd [place] [address] Xiang Sanon MD [address] [place] [address] Cervical lymphadenopathy (Primary Dx) Social History Tobacco Use Types Packs/Day Years Used Date Smoking Tobacco: Every Day Cigarettes Started: 2016 Smokeless Tobacco: Never Alcohol Use Standard Drinks/Week Comments Yes 0 (1 standard drink = 0.6 oz pur e alcohol) Comments Unknown Sex and Gender Information Value Date Recorded Sex Assigned at Female 08/05/2024 10:42 AM EDT Legal Sex Female 8:08 PM EDT Gender Identity Female 08/05/2024 10:42 AM EDT Sexual Orientation Straight 08/05/2024 10 :42 AM EDT documented as of this encounter Plan of Treatment Not on file documented as of this encounter Results * CT Soft Tissue [...] error, please notify the sender immediately at [phone] and permanently delete the original report and destroy any copies or printouts. Narrative 08/06/2024 1:59 AM EDT [facility] Radiology - Phone Outpatient NAME: Aide Del Rio DATE OF EXAM: 08/05/2024 Patient No: [id number] Physician: Yuriy Date of : 1995 Past [...] Rio DATE OF EXAM: 08/05/2024 Patient No: [id number] Physician: Yuriy Date of : 1995 Past [...] in error, pleasenotify the sender immediately at [phone] and permanently delete theoriginal report and destroy any copies or printouts. Xiang Sanon MD IMG CT PROCEDURES Final Result documented in this encounter Visit Diagnoses Diagnosis Cervical lymphadenopathy- Primary Enlargement of lymph nodes Cervical lymphadenopathy Enlargement of lymph nodes documented in this encounter Additional Health Concerns Assessment Noted Time A fall risk assessment has been complete d for the patient 06/02/2024 8:17 AM EDT A Body Mass Index follow-up plan has been documented for the patient 06/02/2024 8:45 AM EDT documented as of this encounter Care Teams Pyrotechnics Press Tender Relationship Specialty Start Date End Date Jaquelin Robins APRN [address] [place] [address] PCP - General 08/05/24 documented as of this encounter
--- OUTSIDE RECORDS SUMMARY | 2024-08-19 11:51 | XMS_ITS | Encounter Summary ---
Author Organization [facility] Address [address] [place] [address] Care Team Providers Care Job Press Feeder Name Role Phone Jaquelin Robins APRN Primary Care Provider [phone] Encounter Details Date Type Department Care Team (Latest Contact Info) Description 08/10/2024 Travel Social History Tobacco Use Types Packs/Day Years [...] hopeless Not at all 08/10/2024 8:34 AM Kaelyn Adam Patient Health Questionnaire -2 Score 0 08/10/2024 8:34 AM EDT Kaelyn Plasencia * Calculated C-SSRS Risk Score (Lifetime/Recent) Answer Date of Assessment Author No Risk Indicated 08/10/2024 8:34 AM EDKaelyn Dan * Question Answer Date of Assessment Author 1. Wish to be (Past 1 Month) No 025 8:34 AM EDT Kaelyn Plasencia 2. Non-Specific Active Suici coleen Thoughts (Past 1 Month) No 08/10/2024 8:34 AM EDT Fatemeh Plasencia 6. Suicidal Behavior (Lifetime) No 8:34 AM EDT Kaelyn Plasencia documented as of this encounter Plan of Treatment Not on file documented as of this encounter Visit Diagnoses Not on filedocumented in this encounter Additional Health Concerns Assessment Noted Time A fall risk assessment has been complete d for the patient 08/10/2024 8:36 AM EDT A Body Mass Index follow-up plan has been documented for the patient 08/10/2024 9:01 AM EDT documented as of this encounter Care Teams Job Press Feeder Relationship Specialty Start Date End Date Jaquelin Robins APRN [address] [place] [address] PCP - General 08/05/24 documented as of this encounter
--- OUTSIDE RECORDS SUMMARY | 2024-08-19 11:51 | XMS_ITS | Clinical Summary ---
Author Organization Healthcare Address [address] [place] [address] Care Team Providers Care Supervisor Asbestos Removal Name Role Phone Jaquelin Robins EMILIANO Primary Care Provider [phone] Allergies No known active allergies Medications valACYclovir (Valtrex) 1 g tablet Take 1 tablet by mouth in the morning and 1 tablet before bedtime. 04/01/2024 Active propranolol (Inderal) 10 MG tablet Take 1 tablet by mouth in the morning and 1 tablet before bedtime. 05/09/2024 Active nitrofurantoin, macrocrystal-mo nohydrate, (Macrobid) 100 MG capsule take 1 capsule by mouth twice daily for 5 days 05/26/2024 Active hydrOXYzine pamoate (Vistaril) 25 MG capsule TAKE 1 CAPSULE BY MOUTH EVERY 8 HOURS NEEDED FOR PANIC ATTACK 05/05/2024 Active fluticasone (Flonase) 50 MCG/ACT nasal spray use 1 spray(s) in each nostril once daily 05/05/2024 Active cholecalciferol (Vitamin D-3) 250 MCG (20332 UT) capsule Take 1 capsule by mouth 1 (one) time per week. 05/19/2024 Active cetirizine (ZyrTEC) 10 MG tablet Take 1 tablet by mouth daily. 05/05/2024 Active Active Problems Problem Noted Date Diagnosed Date Tobacco use disorder 06/02/2024 Cervical lymphadenopathy 06/02/2024 Encounters Date Type Department Care Team Description 08/10/2024 8:30 AM EDT Office Visit [facility] [address] [place] [phone] Xiang Sanon MD Anxiety (Primary Dx); Cervical lymphadenopathy 08/10/2024 Travel 08/09/2024 Travel 08/06/2024 Orders Only [facility] [address] [phone] Xiang Sanon MD Cervical lymphadenopathy (Primary Dx) 08/06/2024 Telephone [facility] [address] [phone] Xiang Sanon MD 08/05/2024 11:35 AM EDT - 08/05/2024 11:59 PM EDT Hospital Encounter [facility] [address] [place] [phone] Cervical lymphadenopathy Discharge Disposition: Home or Self Care 08/05/2024 Travel 08/05/2024 Telephone [facility] [address] [phone] Xiang Sanon MD 08/05/2024 Orders Only [facility] [address] [phone] Xiang Sanon MD Cervical lymphadenopathy (Primary Dx) 06/05/2024 Orders Only External Location [address] [place] [phone] Provider, External 06/02/2024 8:30 AM EDT Office Visit [facility] [address] [address] Xiang Sanon MD Cervical lymphadenopathy (Primary Dx) 06/02/2024 Travel 06/01/2024 Telephone [facility] [address] [phone] Xiang Sanon MD from Last 3 Months Social History Tobacco Use Types Packs/Day Years [...] Orientation Straight 08/05/2024 10 :42 AM EDT Last Filed Vital Signs Vital Sign Reading [...] Mass Index 20.6 08/10/2024 8:32 AM EDT Plan of Treatment Health Maintenance Due Date Last Done Comments [facility]-/Child/Adol SDOH Screenings 1996 [facility]-Varicella Vaccines (1 of 2 - 13+ 2-dose series) 2009 HPV Vaccines (1 - 3-dose series) 09/04/2011 [facility]- SDOH Screenings 2014 [facility]-Adult SDOH Screenings 2014 [facility]-DTaP,Tdap,and Td Vaccine s (1 - Tdap) 09/04/2015 [facility]-Hepatitis B Vaccines (1 of 3 - 19+ 3-dose series) 09/04/2015 [facility]-Pneumococcal Vaccine: Pediatrics (0 to 5 Years) and At-Risk Patients (6 to 49 Years) (1 of 2 - PCV) 09/04/2015 [facility]-Pap Smear 2017 XXZ-ZBTAC-27 Vaccine (1 - 20 24-25 season) 2023 [facility]-Influenza Vaccine (Seaso n Ended) 2024 [facility]-Depression Screening 08/10/2025 08/10/2024 [facility]-Zoster Vaccines (1 of 2) 2046 [facility]-HIV Screening Completed 05/03/2024 [facility]-Hepatitis C Screening Completed 05/03/2024 [facility]-HIB Vaccines Aged Out No longer e ligible based on patient's age to complete this topic [facility]-Hepatitis A Vaccines Aged Out No longer eligible based on patient's age to complete this topic [facility]-IPV Vaccines Aged Out No longer e ligible based on patient's age to complete this topic [facility]-Rotavirus Vaccines Aged Out No lo nger eligible based on patient's age to complete this topic Procedures Procedure Name Priority Date/Time Associated Diagnosis Comments CT SOFT TISSUE NECK W IV CONTRAST Routine 08/05/2024 12:34 PM EDT Cervical lymphadenopathy US OUTSIDE IMAGES 06/05/2024 11: 03 AM EDT HEPATITIS C ANTIBODY - ED W/REFLEX TO HCV QUANT PCR STAT 05/03/2024 3:47 PM EDT ED HIV 1/2 ANTIBODY/ANTIGEN SCREEN WITH REFLEX TO HIV I/II DIFFERENTIATION STAT 05/03/2024 3:47 PM EDT from Last 3 Months or Most Recently Relevant to Health Maintenance Results * CT Soft Tissue Neck w [...] error, please notify the sender immediately at [phone] and permanently delete the original report and destroy any copies or printouts. Narrative 08/06/2024 1:59 AM EDT [facility] - Phone Outpatient NAME: Aide Del Rio DATE OF EXAM: 08/05/2024 Patient No: [id number] Physician: Yuriy Date of : 1995 Past [...] Procedure Note Alyson Barrett MD - 08/06/2024 [facility] - Phone Outpatient NAME: Aide Del Rio DATE OF EXAM: 08/05/2024 Patient No: [id number] Physician: Yuriy Date of : 1995 Past [...] thyroid lobe. I discusse Additional History (per [facility]): Contrast Agent and Dose: 100 mL [...] in error, pleasenotify the sender immediately at [phone] and permanently delete theoriginal report and destroy any copies or printouts. us Xiang Sanon MD IMG CT PROCEDURES Final Result * US OUTSIDE IMAGES (06/05/2024 11:03 AM EDT) Anatomical Region Laterality Modality Ultrasound 06/05/2024 11:0 3 AM EDT us External Provider IMG US PROCEDURES Final Result * ED HIV 1/2 Antibody/Antigen Screen w/Reflex to HIV 1/2 Differentiation (05/03/2024 3:47 PM EDT) HIV 1 & 2 Antibody/Antigen Screen Non Reactive Non Reactive 05/03/2024 4:46 PM EDT [facility] Comment:Screening for HIV 1 & 2 antibodies, and P24 antigen is NONREACTIVE. No confirmatory testing is required. Blood Venous blood specimen / Unknown Venipuncture / Unknown 05/03/2024 3:47 PM EDT 05/03/2024 4:04 PM EDT us Colt Gutierrez MD LAB BLOOD ORDERABLES Final Result [facility] [address] [place] [address] * Hepatitis C Antibody - ED (05/03/2024 3:47 PM EDT) Hepatitis C Antibody Negative Negative 05/03/2024 4:43 PM EDT [facility] Blood Venous blood specimen / Unknown Venipuncture / Unknown 05/03/2024 3:47 PM EDT 05/03/2024 4:04 PM EDT us Colt Gutierrez MD LAB BLOOD ORDERABLES Final Result [facility] [address] [place] [address] from Last 3 Months or Most Recently Relevant to Health [place] [address] [place] [address] ANTHEM Care Teams Supervisor Asbestos Removal Relationship Specialty Start Date End Date Jaquelin Robins APRN [address] [facility] [place] [address] PCP - General 08/05/24
--- OUTSIDE RECORDS SUMMARY | 2024-08-19 11:51 | XMS_ITS | Encounter Summary ---
Author Organization [facility] Address [address] [place] [address] Care Team Providers Care Organic Search Lead Name Role Phone Jaquelin Robins APRN Primary Care Provider Encounter Details Date Type Department Care Team (Latest Contact Info) Description 08/09/2024 Travel Social History Tobacco Use Types Packs/Day [...] documented as of this encounter Care Teams Organic Search Lead Relationship Specialty Start Date End Date Jaquelin Robins APRN [address] [facility] [place] [address] PCP - General 08/05/24 documented as of this encounter
--- OUTSIDE RECORDS SUMMARY | 2024-08-19 11:51 | XMS_ITS | Encounter Summary ---
Author Organization [facility] Address [address] [id number] Care Team Providers Care Fire Support Specialist Name Role Phone Jaquelin Robins APRN Primary Care Provider [phone] Encounter Details Date Type Department Care Team (Latest Contact Info) Description 08/05/2024 Travel Social History Tobacco Use Types Packs/Day [...] documented as of this encounter Care Teams Fire Support Specialist Relationship Specialty Start Date End Date Jaquelin Robins APRN [address] [facility] [place] [address] PCP - General 08/05/24 documented as of this encounter
--- OUTSIDE RECORDS SUMMARY | 2024-08-19 11:51 | XMS_ITS | Encounter Summary ---
Author Organization Healthcare Address [address] [place] [address] Care Team Providers Care State Pilot Name Role Phone Jaquelin Robins APRN Primary Care Provider [phone] Encounter Details Date Type Department Care Team (Late st Contact Info) Description 08/05/2024 Telephone [facility] [address] [place] [phone] Xiang Sanon MD [address] [facility] [address] [place] [address] Social History Tobacco Use Types Packs/Day Years [...] AM EDT documented as of this encounter Miscellaneous Notes * Telephone Encounter - Jaquelin Castillo RN - 08/05/2024 1:13 PM EDT Patient requested phone call with results, no appointment is needed at this time. * Telephone Encounter - Brielle Isidro - 08/05/2024 11:02 AM EDT Called pt to see if she would be available to follow up with Dr. aSnon tomorrow 08/06 since it was unclear if she was available or not based on the previous messages. Also let patient know that CT authorization is under medical review and would not be back today and could take up to 72 hours. If thepatient denies coverage of the scan, the patient would be considered self-pay for the entire cost. Asked pt to call back to schedule follow up. * Telephone Encounter - Brielle Isidro - 08/05/2024 10:38 AM EDT Radiology is seeing if they could accommodate today. * Telephone Encounter - Brielle Isidro - 08/05/2024 10:19 AM EDT Sent to Kevin lazar to begin that process. * Telephone Encounter - Alysia Ray - 08/05/2024 9:26 AM EDT Patient Phone Message Reason for Call:Patient talk to radiology to see if she can get scheduled for her ct. She said thatthey said she has to sign a waiver to say that she will pay for it her insurance dont. They will schedule her for today or tomorrow. Best contact number and optimal time of day to reach caller:[phone] Note: Please do not reply to this message. Follow-up communication and further actions as a result of this message need to be communicated with the patient directly, if the patient is not active onMyChart. If the patient is active on MyChart, they will receive notification of the communication/outcome via [employer]. * Telephone Encounter - Alysia Ray - 08/05/2024 9:07 AM EDT Patient Phone Message Reason for Call:Patient is wanting to know if she can come in and have her scan office visit done today. She will be out of town 08/23 and for the next couple of weeks she will be about to take off. Please give her a call back. Best contact number and optimal time of day to reach caller:[phone] Note: Please do not reply to this message. Follow-up communication and further actions as a result of this message need to be communicated with the patient directly, if the patient is not active onMyChart. If the patient is active on MyChart, they will receive notification of the communication/outcome via [employer]. documented in this encounter Plan of Treatment [...] documented as of this encounter Care Teams State Pilot Relationship Specialty Start Date End Date Jaquelin Robins APRN [address] [place] [address] PCP - General 08/05/24 documented as of this encounter
--- OUTSIDE RECORDS SUMMARY | 2024-08-19 11:52 | XMS_ITS | Encounter Summary ---
Author Organization Healthcare Address [address] [place] [address] Care Team Providers Care Proof Machine Operator Supervisor Name Role Phone Jaquelin Robins APRN Primary Care Provider [phone] Encounter Details Date Type Department Care Team (Late st Contact Info) Description 08/06/2024 Orders Only [facility] [address] [facility], [address] [place] [address] Xiang Sanon MD [address] [place] [address] Cervical lymphadenopathy (Primary Dx) Social History Tobacco [...] as of this encounter Visit Diagnoses Diagnosis Cervical lymphadenopathy- Primary Enlargement of lymph nodes documented in this encounter Additional Health Concerns Assessment Noted Time A fall risk assessment has been complete d for the patient 06/02/2024 8:17 AM EDT A Body Mass Index follow-up plan has been documented for the patient 06/02/2024 8:45 AM EDT documented as of this encounter Care Teams Proof Machine Operator Supervisor Relationship Specialty Start Date End Date Jaquelin Robins APRN [address] [place] [address] PCP - General 08/05/24 documented as of this encounter
--- OUTSIDE RECORDS SUMMARY | 2024-08-19 11:52 | XMS_ITS | Encounter Summary ---
Author Organization Healthcare Address [address] [place] [address] Care Team Providers Care Metal Filer Name Role Phone System, Provider Not In MD Primary Care Provider Unavailable Jaquelin Robins APRN Primary Care Provider Encounter Details Date Type Department Care Team (Late st Contact Info) Description 05/08/2024 Orders Only External Location [address] [place] [address] Lilibeth Sutton APRN [address] [place] [address] [place] [address] Social History Tobacco Use Types Packs/Day Years [...] Associated Diagnosis Comments US OUTSIDE IMAGES 05/08/2024 2:42 PM EDT documented in this encounter Results * US OUTSIDE IMAGES (05/08/2024 2:42 PM EDT) Anatomical Region Laterality Modality Ultrasound 05/08/2024 2:42 PM EDT us Lilibeth Sutton APRN IMG US PROCEDURES Final Result documented in this encounter Visit Diagnoses Not on filedocumented in this encounter Care Teams Metal Filer Relationship Specialty Start Date End Date System, Provider Not In, [place] [address] PCP - General Family Medicine 05/03/24 08/04/24 Jaquelin Robins APRN [address] [place] [address] PCP - General 08/05/24 documented as of this encounter
--- OUTSIDE RECORDS SUMMARY | 2024-08-19 11:52 | XMS_ITS | Encounter Summary ---
Author Organization Healthcare Address [address] [place] [address] Care Team Providers Care Concrete Block Mason Name Role Phone System, Provider Not In MD Primary Care Provider Unavailable Jaquelin Robins APRN Primary Care Provider Encounter Details Date Type Department Care Team ([facility] st Contact Info) Description 05/11/2024 Orders Only External Location [address] [place] [phone] Provider, External Social History Tobacco Use Types Packs/Day Years [...] Name Priority Date/Time Associated Diagnosis Comments CT NEURO OUTSIDE IMAGES 05/11/2024 3:29 PM EDT documented in this encounter Results * CT NEURO OUTSIDE IMAGES (05/11/2024 3:29 PM EDT) Anatomical Region Laterality Modality Computed Tomogra phy 05/11/2024 3:29 PM EDT us External Provider IMG CT PROCEDURES Final Result documented in this encounter Visit Diagnoses Not on filedocumented in this encounter Care Teams Concrete Block Mason Relationship Specialty Start Date End Date System, Provider Not In, [address] [place] [address] PCP - General Family Medicine 05/03/24 08/04/24 Jaquelin Robins APRN [address] [place] [address] PCP - General 08/05/24 documented as of this encounter
--- OUTSIDE RECORDS SUMMARY | 2024-08-19 11:52 | XMS_ITS | Encounter Summary ---
Author Organization Healthcare Address [address] [place] [address] Care Team Providers Care Drafter Refrigeration Name Role Phone Jaquelin Robins APRN Primary Care Provider [phone] Encounter Details Date Type Department Care Team (Late st Contact Info) Description 08/06/2024 Telephone [facility] [address] [place] [phone] Xiang Sanon MD [address] [facility] [address] [place] [address] Social History Tobacco Use Types Packs/Day Years [...] Telephone Encounter - Jaquelin Castillo RN - 08/06/2024 1:38 PM EDT I called the patient to schedule her with Dr. Sanon to discuss her CT results. She is coming in at 8:30 on 08/10. * Telephone Encounter - Jaquelin Castillo RN - 08/06/2024 9:04 AM EDT Message sent to provider. * Telephone Encounter - Chey Leonard - 08/06/2024 8:44 AM EDT Patient Phone Message Reason for Call: Per pt call to [facility], asking if test results are back. Asking for a call back from provider to discuss results. Best contact number and optimal time of day to reach caller: [phone], nicol Noble to leave appt information, address concerns and answers to questions inVM at this # Note: Please do not reply to this message. Follow-up communication and further actions as a result of this message need to be communicated with the patient directly, if the patient is not active onMyChart. If the patient is active on MyChart, they will receive notification of the communication/outcome via [employer]. documented in this encounter Plan of Treatment [...] documented as of this encounter Care Teams Drafter Refrigeration Relationship Specialty Start Date End Date Jaquelin Robins APRN [address] [place] [address] PCP - General 08/05/24 documented as of this encounter
--- OUTSIDE RECORDS SUMMARY | 2024-08-19 11:52 | XMS_ITS | Encounter Summary ---
Author Organization Healthcare Address [address] [place] [address] Care Team Providers Care Cloth Bin Packer Name Role Phone System, Provider Not In MD Primary Care Provider Unavailable Jaquelin Roibns APRN Primary Care Provider Encounter Details Date Type Department Care Team (Late st Contact Info) Description 05/09/2024 Orders Only External Location [address] [place] [address] Axel Austin MD [address] [place] [address] [place] [address] Social History Tobacco Use Types Packs/Day Years [...] Date/Time Associated Diagnosis Comments XR OUTSIDE IMAGES 05/09/2024 7:00 AM EDT documented in this encounter Results * XR OUTSIDE IMAGES (05/09/2024 7:00 AM EDT) Anatomical Region Laterality Modality Radiographic Eileen ging 05/09/2024 7:00 AM EDT us Axel Austin MD IMG XR PROCEDURES Final Result documented in this encounter Visit Diagnoses Not on filedocumented in this encounter Care Teams Cloth Bin Packer Relationship Specialty Start Date End Date System, Provider Not In, [place] [address] PCP - General Family Medicine 05/03/24 08/04/24 Jaquelin Robins APRN [address] [place] [address] PCP - General 08/05/24 documented as of this encounter
[2024-08-19 12:37] LABS: Basophils # 0.1 K/mm3 (0-0.2); Basophils % 0.6 % (0.1-2.0); Eosinophils # 0.1 Kmm3 (0.0-0.4); Eosinophils % 0.7 % (0.1-12.0); Hematocrit 40.7 % (37.0-47.0); Hemoglobin 12.8 g/dL (12.2-16.2); Immature Granulocytes # 0.02 10^3uL; Immature Granulocytes % 0.2 %; Lymphocytes # 1.7 K/mm3 (0.7-4.5); Lymphocytes % 20.5 % (10-50); Mean Corpuscular HGB Conc 31.4 g/dL (31.8-35.4); Mean Corpuscular Hemoglobin 30.1 pg (27.0-31.2); Mean Corpuscular Volume 95.8 fl (81-99); Monocytes # 0.4 K/mm3 (0.1-1.0); Neutrophils # 6.1 K/mm3 (1.8-7.8); Nucleated Red Blood Cells # 0 10^3/uL; Nucleated Red Blood Cells % 0 %; Platelet Count 314 K/mm3 (142-424); Red Blood Count 4.25 M/mm3 (4.20-5.40); White Blood Count 8.4 K/mm3 (4.8-10.8)
[2024-08-19 13:39] LABS: Triiodothryronine (T3) Uptake 32 % (23.5-40.5)
[2024-08-19 13:40] LABS: Free Thyroxine Index 2.3 ug/dL (5.93-13.13); T4 (Thyroxine) 7.3 ug/dl (5.53-11.0)
[2024-08-19 13:54] LABS: Thyroid Stimulating Hormone 0.65 uIU/mL (0.465-4.68)
[2024-08-20 17:38] LABS: Anti-Centromere B Antibodies <0.2 AI (0.0-0.9); Anti-DNA (DS) Ab Qn <1 IU/mL (0-9); Anti-Jo-1 <0.2 AI (0.0-0.9); Anti-Smith Antibody <0.2 AI (0.0-0.9); Antichromatin Antibodies <0.2 AI (0.0-0.9); Antiscleroderma-70 Antibodies <0.2 AI (0.0-0.9); RNP Antibodies <0.2 AI (0.0-0.9); Sjogren's Anti-SS-A <0.2 AI (0.0-0.9); Sjogren's Anti-SS-B <0.2 AI (0.0-0.9)
== END 2024-08-19 23:59 | disposition home or self-care (01) ==
LOC: LAB 11:49
PROVIDERS: PCP Family Medicine; Visit Provider Family Medicine
DX: E04.1 Nontoxic single thyroid nodule (principal); R79.89 Other specified abnormal findings of blood chemistry; R53.83 Other fatigue; R59.9 Enlarged lymph nodes, unspecified; Z72.820 Sleep deprivation
CPT/HCPCS: 36415; 84436; 84443; 84479; 85025; 86225; 86235

== ENCOUNTER 2024-09-09 10:35 | Outpatient (CLI) | payer BC, SELFPAY ==
--- OUTSIDE RECORDS SUMMARY | 2024-08-05 11:35 | XMS_ITS | Encounter Summary ---
Author Organization [facility] Address [address] [place] [address] Care Team Providers Care Information Services Vice President Name Role Phone ShimonPhillipJaquelin EMILIANO Primary Care Provider [phone] Reason for Referral * Imaging (Urgent) - Closed Specialty Diagnoses / Procedures Referred By Marvel t Referred To Contact Radiology Diagnoses Cervical lymphadenopathy Procedures CT Soft Tissue Neck w IV Contrast Xiang Sanon MD [address] [address] Phone: tel: fax: Referral ID Status Reason Start Date Expiration Date Visits Re quested Visits Authorized [id number] Closed 08/05/2024 02/04/2026 1 1 Reason for Visit * Imaging (Urgent) - Closed Specialty Diagnoses / Procedures Referred By Marvel ovalle Referred To Contact Radiology Diagnoses Cervical lymphadenopathy Procedures CT Soft Tissue Neck w IV Contrast Xiang Sanon MD [address] [facility] [address] [place] [address] Phone: tel: fax: Referral ID Status Reason Start Date Expiration Date Visits Re quested Visits Authorized [id number] Closed 08/05/2024 02/04/2026 1 1 Encounter Details Date Type Department Care Team (Latest Contact Info) Description 08/05/2024 11:35 AM EDT - 08/05/2024 11:59 PM EDT Hospital Encounter [facility] Radiology [address] [place] [address] Cervical lymphadenopathy Discharge Disposition: Home or Self [...] hopeless Not at all 08/10/2024 8:34 AM EDT Kaelyn Plasencia Patient Health Questionnaire -2 Score 0 08/10/2024 8:34 AM RISAT Kaelyn Plasencia * Calculated C-SSRS Risk Score (Lifetime/Recent) Answer Date of Assessment Author No Risk Indicated 08/10/2024 8:34 AM Kaelyn Adam * Question Answer Date of Assessment Author 1. Wish to be (Past 1 Month) No 025 8:34 AM Kaelyn Adam 2. Non-Specific Active Suici coleen Thoughts (Past 1 Month) No 08/10/2024 8:34 AM EDT Fatemeh Plasencia 6. Suicidal Behavior (Lifetime) No 8:34 AM Kaelyn Adam documented as of this encounter Medications at Time of Discharge cetirizine (ZyrTEC) 10 MG tablet Take 1 tablet by mouth daily. 05/05/2024 cholecalciferol (Vitamin D-3) 250 MCG (47432 UT) capsule Take 1 capsule by mouth [...] speak with a Emergency Radiology doctor, call [phone]. documented in this encounter Plan of Treatment Upcoming Encounters Date Type Department Care Team ([facility] st Contact Info) Description 09/15/2024 10:00 AM EDT Office Visit [facility] Head, Neck & Respiratory [address] [facility], [address]nd [place] [address] Xiang Sanon MD [address] [place] [address] 10/06/2024 2:[address] [facility] [address] [facility] [address] [place] [address] Gopal Mckeon DMD, MD [address] [place] [address] documented as of this encounter Procedures Procedure [...] error, please notify the sender immediately at [phone] and permanently delete the original report and destroy any copies or printouts. Narrative 08/06/2024 1:59 AM EDT [facility] Radiology - Phone Outpatient NAME: Aide Del Rio DATE OF EXAM: 08/05/2024 Patient No: [id number] Physician: Yuriy Date of : 1995 Past Medical/Surgical History (entered by technologist): Symptoms/Reason For Exam (entered by technologist): Metastatic disease evaluation Tech Notes (entered by technologist): 100 mL Intravenous iohexol (OMNIPaque) 300 MG/ML injection Dx: Cervical lymphadenopathy Comments: first available f/u Aouaagustina same day CT neck with contrast 06/02 [...] Procedure Note Alyson Barrett MD - 08/06/2024 [facility] - Phone Outpatient NAME: Aide Del Rio Jeremias DATE OF EXAM: 08/05/2024 Patient No: [id number] Physician: LouisaXiang Date of : 1995 Past Medical/Surgical History (entered by technologist): Symptoms/Reason For Exam (entered by technologist): Metastatic diseaseevaluation Tech Notes (entered by technologist): 100 mL Intravenous iohexol(OMNIPaque) 300 MG/ML injection Dx: Cervical lymphadenopathy Comments: first available f/u Aouad same day CT neck with contrast 06/02 [...] case directly please call to review. Alyson Foster, M.D. This report has been electronically signed [...] in error, pleasenotify the sender immediately at [phone] and permanently delete theoriginal report and destroy [...] documented as of this encounter Care Teams Information Services Vice President Relationship Specialty Start Date End Date Jaquelin Robins APRN [address] [place] [address] PCP - General 08/05/24 documented as of this encounter
--- OUTSIDE RECORDS SUMMARY | 2024-08-10 08:30 | XMS_ITS | Encounter Summary ---
Author Organization [facility] Address [address] [place] [address] Care Team Providers Care Floating Labor Gang Supervisor Name Role Phone ShimonPhillipEla EMILIANO Primary Care Provider [phone] Reason for Referral * Consultation (Routine) - Authorized Specialty Diagnoses / Procedures Referred By Contac t Referred To Contact Psychiatry Diagnoses Anxiety Xiang Sanon MD [address] [address] Phone: tel: fax: Referral ID Status Reason Start Date Expiration Date Visits Requested Visits Authorized [id number] Authorized Specialty Services Required 08/10/2024 02/09/2026 1 1 Scheduling Instructions referral to Psychiatry in [place] please Reason for Visit * Reason Comments Follow-up Encounter Details Date Type Department Care Team (Latest Contact Info) Description 08/10/2024 8:30 AM EDT Office Visit [facility] Head, Neck & Respiratory [address] [place] [address] Xiang Sanon MD [address] [address] Anxiety (Primary Dx); Cervical lymphadenopathy Social [...] Author No Risk Indicated 08/10/2024 8:34 AM RISAT Kaelyn Plasencia * Question Answer Date of Assessment Author 1. Wish to be (Past 1 Month) No 025 8:34 AM EDT Kaelyn Plasencia 2. Non-Specific Active Suici coleen Thoughts (Past 1 Month) No 08/10/2024 8:34 AM EDT Fatemeh Plasencia 6. Suicidal Behavior (Lifetime) No 8:34 AM EDT Kaelyn Plasencia documented as of this encounter Miscellaneous Notes [...] sent a referral to see psychiatry in [facility]. *Digital speech recognition software was used to dictate this note and, despite all efforts to proofread, some dictation errors may occur. If you have any questions, please do not hesitate to contactme. Xiang Sanon MD MS FACS [facility] Head & Neck Oncology Thyroid/Parathyroid Surgery Rhinology & Skull Base Surgery documented in this encounter Plan of Treatment Upcoming Encounters Date Type Department Care Team (Late st Contact Info) Description 09/15/2024 10:00 AM EDT Office Visit [facility] Head, Neck & Respiratory [address] [place] [address] Xiang Sanon MD [address] [facility] [address] [place] [address] 10/06/2024 2:30 PM EDT Evaluation [facility] [address] [facility] [address] [place] [address] Gopal Mckeon, MD KANU [address] [facility] [address] [place] [address] Scheduled Referrals Name Type Priority Associated Diagnoses [...] documented as of this encounter Care Teams Floating Labor Gang Supervisor Relationship Specialty Start Date End Date Ela Robins APRN [address] [place] [address] PCP - General 08/05/24 documented as of this encounter
--- OUTSIDE RECORDS SUMMARY | 2024-09-09 10:38 | XMS_ITS | Encounter Summary ---
Author Organization [facility] Address [address] [place] [address] Care Team Providers Care Design Technology Professor Name Role Phone Jaquelin Robins APRN Primary Care Provider [phone] Encounter Details Date Type Department Care Team (Late st Contact Info) Description 08/21/2024 Telephone [facility] [address] [place] [phone] Xiang Sanon MD [address] [place] [address] Social History Tobacco Use Types Packs/Day Years [...] encounter Miscellaneous Notes * Telephone Encounter - Colt Lind - 08/21/2024 11:24 AM EDT Patient called stating she received a phone call but no voicemail. No phone message in. She will await a return call. documented in this encounter Plan of Treatment Upcoming Encounters Date Type Department Care Team (Late st Contact Info) Description 09/15/2024 10:00 AM EDT Office Visit [facility] [address] [place] [address] Xiang Sanon MD [address] [place] [address] 10/06/2024 2:[address] [facility] senior tech manufacturing engineering [facility] [address] [facility] [facility] [address] [place] [address] Gopal Mckeon DMD, MD [address] [place] [address] documented as of this encounter Visit Diagnoses Not on filedocumented in this encounter Additional Health Concerns Assessment Noted Time A fall risk assessment has been complete d for the patient 08/10/2024 8:36 AM EDT A Body Mass Index follow-up plan has been documented for the patient 08/10/2024 9:01 AM EDT documented as of this encounter Care Teams Design Technology Professor Relationship Specialty Start Date End Date Jaquelin Robins APRN [address] [place] [address] PCP - General 08/05/24 documented as of this encounter
--- OUTSIDE RECORDS SUMMARY | 2024-09-09 10:38 | XMS_ITS | Encounter Summary ---
Author Organization [facility] Address [address] [place] [address] Care Team Providers Care Goodwill Ambassador Name Role Phone Jaquelin Robins EMILIANO Primary Care Provider [phone] Reason for Referral * Imaging (Urgent) - Closed Specialty Diagnoses / Procedures Referred By Contac t Referred To Contact Radiology Diagnoses Cervical lymphadenopathy Procedures CT Soft Tissue Neck w IV Contrast Xiang Sanon MD [address] [facility] [address] [address] Phone: tel: fax: Referral ID Status Reason Start Date Expiration Date Visits Re quested Visits Authorized [id number] Closed 08/05/2024 02/04/2026 1 1 Encounter Details Date Type Department Care Team (Late st Contact Info) Description 08/05/2024 Orders Only [facility] [address] [place] [address] Xiang Sanon MD [address] [facility] [address] [place] [address] Cervical lymphadenopathy (Primary Dx) Social [...] as of this encounter Plan of Treatment Upcoming Encounters Date Type Department Care Team (Late st Contact Info) Description 09/15/2024 10:00 AM EDT Office Visit [facility] [address] [place] [address] Xiang Sanon MD [address] [place] [address] 10/06/2024 2:30 PM EDT Evaluation [facility] restrictive preparation operator Faculty [facility] [address] [facility] [address] [place] [address] Gopal Mckeon DMD, MD [address] [place] [address] documented as of this encounter Results * [...] error, please notify the sender immediately at [phone] and permanently delete the original report and destroy any copies or printouts. Narrative 08/06/2024 1:59 AM EDT [facility] - Phone Outpatient NAME: Aide Del Rio DATE OF EXAM: 08/05/2024 Patient No: [id number] Physician: Yuriy Date of : 1995 Past [...] Rio DATE OF EXAM: 08/05/2024 Patient No: [id number] Physician: Yuriy Date of : 1995 Past [...] in error, pleasenotify the sender immediately at [phone] and permanently delete theoriginal report and destroy [...] documented as of this encounter Care Teams Goodwill Ambassador Relationship Specialty Start Date End Date Jaquelin Robins APRN [address] [place] [address] PCP - General 08/05/24 documented as of this encounter
--- OUTSIDE RECORDS SUMMARY | 2024-09-09 10:38 | XMS_ITS | Encounter Summary ---
Author Organization Healthcare Address [address] [place] [address] Care Team Providers Care Furniture Upholsterer Apprentice Name Role Phone System, Provider Not In MD Primary Care Provider Unavailable Jaquelin Robins APRN Primary Care Provider [phone] Encounter Details Date Type Department Care Team (Late Contact Info) Description 05/08/2024 Orders Only External Location [address] [place] [address] Lilibeth Sutton APRN [address] [place] [address] Social History Tobacco Use Types Packs/Day Years [...] Encounters Date Type Department Care Team (Late Contact Info) Description 09/15/2024 10:00 AM EDT Office Visit [facility] Head[facility] Neck & Respiratory [address] , 2[address] [place] [address] Xiang Sanon MD [address] [place] [address] 10/06/2024 2:30 PM EDT Evaluation [facility] brim curler [facility] [address] [facility] [address] [place] [address] Gopal Mckeon DMD, MD [address] [facility] [address] [place] [address] documented as of this encounter Procedures Procedure Name Priority Date/Time Associated Diagnosis Comments US OUTSIDE IMAGES 05/08/2024 2:42 PM EDT documented in this encounter Results * US OUTSIDE IMAGES (05/08/2024 2:42 PM EDT) Anatomical Region Laterality Modality Ultrasound 05/08/2024 2:42 PM EDT us Lilibeth Sutton MAINTENANCE PLANNING CLERK IMG US PROCEDURES Final Result documented in this encounter Visit Diagnoses Not on filedocumented in this encounter Care Teams Furniture Upholsterer Apprentice Relationship Specialty Start Date End Date System, Provider Not In, [place] [address] PCP - General Family Medicine 05/03/24 08/04/24 Jaquelin Robins APRN [address] [place] [address] PCP - General 08/05/24 documented as of this encounter
--- OUTSIDE RECORDS SUMMARY | 2024-09-09 10:38 | XMS_ITS | Encounter Summary ---
Author Organization Healthcare Address [address] [place] [address] Care Team Providers Care Canvas Products Sales Representative Name Role Phone System, Provider Not In MD Primary Care Provider Unavailable Jaquelin Robins APRN Primary Care Provider Encounter Details Date Type Department Care Team (Late st Contact Info) Description 05/09/2024 Orders Only External Location [address] [place] [phone] Axel [place] MD [address] [place] [address] [place] [address] Social History Tobacco Use Types Packs/Day Years [...] & Respiratory [address] , [address] [place] [address] Xiang Sanon MD [address] [facility] [address] [place] [address] 10/06/2024 2:30 PM EDT Evaluation [facility] layup worker [facility] [address] [facility] [address] [place] [address] Gopal Mckeon, MD KANU [address] [facility] [address] [place] [address] documented as of this encounter [...] on filedocumented in this encounter Care Teams Canvas Products Sales Representative Relationship Specialty Start Date End Date System, Provider Not In, [facility] [place] [address] PCP - General Family Medicine 05/03/24 08/04/24 Jaquelin Robins APRN [address] [place] [address] PCP - General 08/05/24 documented as of this encounter
--- OUTSIDE RECORDS SUMMARY | 2024-09-09 10:38 | XMS_ITS | Encounter Summary ---
Author Organization [facility] Address [address] [place] [address] Care Team Providers Care Optometric Technician Name Role Phone Jaquelin Robins APRN Primary Care Provider [phone] Encounter Details Date Type Department Care Team (Late st Contact Info) Description 09/02/2024 Telephone Pav [facility] Head, Neck & Respiratory [address], [address] [place] [address] Xiang Sanon MD [address] [place] [address] Social History Tobacco Use Types Packs/Day Years [...] Telephone Encounter - Jaquelin Castillo RN - 2024 10:55 AM EDT I attempted to return Ms. Sanford's phone call with no answer, I left a voicemail stating that we can schedule an appointment next week with Dr. Sanon, he is in clinic on Saturday, Saturday, and . * Telephone Encounter - Marjorie Sonja Hakeem - 09/02/2024 9:03 AM EDT Clinical Concern/Question Reason for Call: pt would like to speak to someone about the US she had in May 2024. 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 Please call atlisted number. She wants to make an appt too Best contact number: [phone] (mobile) Optimal time of day to reach caller: ANYTIME Additional comments/information from caller: None Note: Please do not reply to this message. Follow-up communication and further actions as a result of this message need to be communicated with the patient directly, if the patient is not active onMyChart. If the patient is active on MyChart, they will receive notification of the communication/outcome via Typeformt. documented in this encounter Plan of Treatment Upcoming Encounters Date Type Department Care Team (Late st Contact Info) Description 09/15/2024 10:00 AM EDT Office Visit [facility] Head, Neck & Respiratory [address] , [address] [place] [address] Xiang Sanon MD [address] [facility] [address] [place] [address] 10/06/2024 2:30 PM EDT Evaluation [facility] electric switch repairer [facility] [address] [facility] [address] [place] [address] Gopal Mckeon DMD, MD [address] [facility] [address] [place] [address] documented as of this encounter Visit Diagnoses Not on filedocumented in this encounter Additional Health Concerns Assessment Noted Time A fall risk assessment has been complete d for the patient 08/10/2024 8:36 AM EDT A Body Mass Index follow-up plan has been documented for the patient 08/10/2024 9:01 AM EDT documented as of this encounter Care Teams Optometric Technician Relationship Specialty Start Date End Date Jaquelin Robins APRN [address] [place] [address] PCP - General 08/05/24 documented as of this encounter
--- OUTSIDE RECORDS SUMMARY | 2024-09-09 10:38 | XMS_ITS | Encounter Summary ---
Author Organization Healthcare Address [address] [place] [address] Care Team Providers Care Life Skills Trainer Name Role Phone System, Provider Not In MD Primary Care Provider Unavailable Jaquelin Robins APRN Primary Care Provider Encounter Details Date Type Department Care Team (Late st Contact Info) Description 05/04/2024 Orders Only External Location [address] [place] [address] Brielle Cruz, DO [address] [place] [address] Social History Tobacco Use Types Packs/Day Years [...] & Respiratory [address] , [address] [place] [address] Xiang Sanon MD [address] [facility] [address] [place] [address] 10/06/2024 2:30 PM EDT Evaluation [facility] diving coach [facility] [address] [facility] [address] [place] [address] Gopal Mckeon, MD KANU [address] [facility] [address] [place] [address] documented as of this encounter Procedures Procedure Name Priority Date/Time Associated Diagnosis Comments XR OUTSIDE IMAGES 05/04/2024 7:28 PM EDT documented in this encounter Results * XR OUTSIDE IMAGES (05/04/2024 7:28 PM EDT) Anatomical Region Laterality Modality Radiographic Eileen ging 05/04/2024 7:28 PM EDT Brielle Cruz DO IMG XR PROCEDURES Final Result documented in this encounter Visit Diagnoses Not on filedocumented in this encounter Care Teams Life Skills Trainer Relationship Specialty Start Date End Date System, Provider Not In, [place] [address] PCP - General Family Medicine 05/03/24 08/04/24 Jaquelin Robins APRN [address] [place] [address] PCP - General 08/05/24 documented as of this encounter
--- OUTSIDE RECORDS SUMMARY | 2024-09-09 10:38 | XMS_ITS | Encounter Summary ---
Author Organization Healthcare Address [address] [place] [address] Care Team Providers Care Fire Controlman Name Role Phone Jaquelin Robins APRN Primary Care Provider [phone] Encounter Details Date Type Department Care Team [...] & Respiratory [address], [address] [place] [address] Xiang Sanon MD [address] [place] [address] 10/06/2024 2:30 PM EDT Evaluation [facility] store lead [facility] [address] [place] [address] [address] [place] [address] Gopal Mckeon, MD KANU [address] [facility] [address] [place] [address] documented as of this encounter Visit Diagnoses Not on filedocumented in this encounter Additional Health Concerns Assessment Noted Time A fall risk assessment has been complete d for the patient 06/02/2024 8:17 AM EDT A Body Mass Index follow-up plan has been documented for the patient 06/02/2024 8:45 AM EDT documented as of this encounter Care Teams Fire Controlman Relationship Specialty Start Date End Date Jaquelin Robins APRN [address] [place] [address] PCP - General 08/05/24 documented as of this encounter
--- OUTSIDE RECORDS SUMMARY | 2024-09-09 10:38 | XMS_ITS | Encounter Summary ---
Author Organization Healthcare Address [address] [place] [address] Care Team Providers Care Bridge Maintainer Name Role Phone System, Provider Not In MD Primary Care Provider Unavailable Jaquelin Robins APRN Primary Care Provider Encounter Details Date Type Department Care Team (Late st Contact Info) Description 05/11/2024 Orders Only External Location [address] [place] [address] Provider, External Social History Tobacco Use Types [...] & Respiratory [address] , [address] [place] [address] Xiang Sanon MD [address] [place] [facility] [address] [place] [address] 10/06/2024 2:30 PM EDT Evaluation [facility] social service agency director [facility] [address] [place] [address] [address] [place] [address] Gopal Mckeon, MD KANU [address] [facility] [address] [place] [address] documented as of this encounter Procedures Procedure [...] on filedocumented in this encounter Care Teams Bridge Maintainer Relationship Specialty Start Date End Date System, Provider Not In, [address] [place] [address] PCP - General Family Medicine 05/03/24 08/04/24 Jaquelin Robins APRN [address] [place] [address] PCP - General 08/05/24 documented as of this encounter
--- OUTSIDE RECORDS SUMMARY | 2024-09-09 10:38 | XMS_ITS | Encounter Summary ---
Author Organization Healthcare Address [address] [place] [address] Care Team Providers Care Human Resources Coordinator Name Role Phone Jaquelin Robins APRN Primary Care Provider [phone] Encounter Details Date Type Department Care Team (Late Contact Info) Description 08/06/2024 Orders Only Pav CC Head, Neck & Respiratory [address] [facility], 2nd [place] [address] Xiang Sanon MD [address] [address] Cervical lymphadenopathy (Primary Dx) Social History [...] & Respiratory [address] , [address] [place] [address] Xiang Sanon MD [address] [address] 10/06/2024 2:30 PM EDT Evaluation [facility] system controller [facility] [address] [facility] [address] [place] [address] Gopal Mckeon DMD, MD [address] [place] [address] documented as of this encounter [...] documented as of this encounter Care Teams Human Resources Coordinator Relationship Specialty Start Date End Date Jaquelin Robins APRN [address] [place] [address] PCP - General 08/05/24 documented as of this encounter
--- OUTSIDE RECORDS SUMMARY | 2024-09-09 10:38 | XMS_ITS | Encounter Summary ---
Author Organization [facility] Address [address] [place] [address] Care Team Providers Care Order Worker Name Role Phone Jaquelin Robins APRN Primary Care Provider [phone] Encounter Details Date Type Department Care Team ([facility] Contact Info) Description 2024 Orders Only Pav [facility] Head, Neck & Respiratory [address] [facility], 2nd [place] [address] Xiang Sanon MD [address] [place] [address] Cervical lymphadenopathy (Primary Dx) Social [...] Upcoming Encounters Date Type Department Care Team ([facility] Contact Info) Description 09/15/2024 10:00 AM EDT Office Visit Pav [facility] Head, Neck & Respiratory [address] , [address] [place] [address] Xiang Sanon MD [address] [place] [address] 10/06/2024 2:30 PM EDT Evaluation [facility] legal stenographer [facility] [address] [facility] [address] [place] [address] Gopal Mckeon DMD, MD [address] [facility] [address] [place] [address] documented as of this encounter [...] documented as of this encounter Care Teams Order Worker Relationship Specialty Start Date End Date Jaquelin Robins APRN [address] [place] [address] PCP - General 08/05/24 documented as of this encounter
--- OUTSIDE RECORDS SUMMARY | 2024-09-09 10:38 | XMS_ITS | Encounter Summary ---
Author Organization [facility] Address [address] [place] [address] Care Team Providers Care Lead Teller Name Role Phone Jaquelin Robins APRN Primary Care Provider [phone] Encounter Details Date Type Department Care Team (Late st Contact Info) Description 08/05/2024 Telephone Pav [facility] Head, Neck & Respiratory [address], [address] [place] [address] Xiang Sanon MD [address] [place] [address] Social History Tobacco Use Types Packs/Day Years [...] Miscellaneous Notes * Telephone Encounter - Jaquelin Csatillo RN - 08/05/2024 1:13 PM EDT Patient requested phone call with results, no appointment is needed at this time. * Telephone Encounter - Brielle Isidro - 08/05/2024 11:02 AM EDT Called pt to see if she would be available to follow up with Dr. Sanon tomorrow 08/06 since it was unclear if [...] and optimal time of day to reach caller:[phone] Note: Please do not reply to this message. Follow-up communication and further actions as a result of this message need to be communicated with the patient directly, if the patient is not active onMyChart. If the patient is active on MyChart, they will receive notification of the communication/outcome via MeeGeniust. * Telephone Encounter - Alysia Ray - [...] and optimal time of day to reach caller:[phone] Note: Please do not reply to this message. Follow-up communication and further actions as a result of this message need to be communicated with the patient directly, if the patient is not active onMyChart. If the patient is active on MyChart, they will receive notification of the communication/outcome via DashBurst. documented in this encounter Plan of Treatment Upcoming Encounters Date Type Department Care Team (Late st Contact Info) Description 09/15/2024 10:00 AM EDT Office Visit Pav CC Head, Neck & Respiratory [address] [facility], [address] [place] [address] Xiang Sanon MD [address] [facility] [address] [place] [address] 10/06/2024 2:30 PM EDT Evaluation [facility] street contractor [facility] [address] [facility] [address] [place] [address] Gopal Mckeon DMD, MD [address] [facility] [address] [place] [address] documented as of this encounter Visit Diagnoses Not on filedocumented in this encounter Additional Health Concerns Assessment Noted Time A fall risk assessment has been complete d for the patient 06/02/2024 8:17 AM EDT A Body Mass Index follow-up plan has been documented for the patient 06/02/2024 8:45 AM EDT documented as of this encounter Care Teams Lead Teller Relationship Specialty Start Date End Date Jaquelin Robins APRN [address] [place] [address] PCP - General 08/05/24 documented as of this encounter
--- OUTSIDE RECORDS SUMMARY | 2024-09-09 10:38 | XMS_ITS | Encounter Summary ---
Author Organization [facility] Address [address] [facility] [place] [address] Care Team Providers Care Engine Repairer Name Role Phone Jaquelin Robins APRN Primary Care Provider [phone] Encounter Details Date Type Department Care Team [...] & Respiratory [address] , [address] [place] [address] Xiang Sanon MD [address] [place] [address] 10/06/2024 2:30 PM EDT Evaluation [facility] broke man [facility] [address] [facility] [address] [place] [address] Gopal Mckeon DMD, MD [address] [facility] [address] [place] [address] documented as of this encounter Visit Diagnoses Not on filedocumented in this encounter Additional Health Concerns Assessment Noted Time A fall risk assessment has been complete d for the patient 08/10/2024 8:36 AM EDT A Body Mass Index follow-up plan has been documented for the patient 08/10/2024 9:01 AM EDT documented as of this encounter Care Teams Engine Repairer Relationship Specialty Start Date End Date Jaquelin Robins APRN [address] [place] [address] PCP - General 08/05/24 documented as of this encounter
--- OUTSIDE RECORDS SUMMARY | 2024-09-09 10:38 | XMS_ITS | Encounter Summary ---
Author Organization [facility] Address [address] [place] [address] Care Team Providers Care Piano Technician Name Role Phone Jaquelin Robins APRN Primary Care Provider [phone] Encounter Details Date Type Department Care Team (Late st Contact Info) Description 08/06/2024 Telephone Pav [facility] Head, Neck & Respiratory [address], [address] [place] [address] Xiang Sanon MD [address] [place] [address] Social History Tobacco Use Types Packs/Day Years [...] Reason for Call: Per pt call to [facility], asking if test results are back. Asking for a call back from provider to discuss results. Best contact number and optimal time of day to reach caller: [phone], nicol Noble to leave appt information, address [...] will receive notification of the communication/outcome via BLiNQ Mediahart. documented in this encounter Plan of Treatment Upcoming Encounters Date Type Department Care Team (Late st Contact Info) Description 09/15/2024 10:00 AM EDT Office Visit Pav CC Head, Neck & Respiratory [address] , [address] [place] [address] Xiang Sanon MD [address] [facility] [address] [place] [address] 10/06/2024 2:[address] [facility] lmft [facility] [address] [facility] [address] [place] [address] Gopal Mckeon DMD, MD [address] [facility] [address] [place] [address] documented as of this encounter Visit Diagnoses Not on filedocumented in this encounter Additional Health Concerns Assessment Noted Time A fall risk assessment has been complete d for the patient 06/02/2024 8:17 AM EDT A Body Mass Index follow-up plan has been documented for the patient 06/02/2024 8:45 AM EDT documented as of this encounter Care Teams Piano Technician Relationship Specialty Start Date End Date Jaquelin Robins APRN [address] [place] [address] PCP - General 08/05/24 documented as of this encounter
--- OUTSIDE RECORDS SUMMARY | 2024-09-09 10:38 | XMS_ITS | Encounter Summary ---
Author Organization Healthcare Address [address] [place] [address] Care Team Providers Care Armhole Feller Handstitching Machine Name Role Phone Jaquelin Robins APRN Primary Care Provider [phone] Encounter Details Date Type Department Care Team [...] & Respiratory [address] , [address] [place] [address] Xiang Sanon MD [address] [facility] [address] [place] [address] 10/06/2024 2:30 PM EDT Evaluation [facility] press setter [facility] [address] [place] [address] Gopal Mckeon DMD, MD [address] [place] [address] documented as of this encounter Visit Diagnoses Not on filedocumented in this encounter Additional Health Concerns Assessment Noted Time A fall risk assessment has been complete d for the patient 06/02/2024 8:17 AM EDT A Body Mass Index follow-up plan has been documented for the patient 06/02/2024 8:45 AM EDT documented as of this encounter Care Teams Armhole Feller Handstitching Machine Relationship Specialty Start Date End Date Jaquelin Robins APRN [address] [place] [address] PCP - General 08/05/24 documented as of this encounter
--- OUTSIDE RECORDS SUMMARY | 2024-09-09 10:38 | XMS_ITS | Encounter Summary ---
Author Organization Healthcare Address [address] [place] [address] Care Team Providers Care Bilingual Sales Consultant Name Role Phone Jaquelin Robins APRN Primary Care Provider [phone] Encounter Details Date Type Department Care Team (Late st Contact Info) Description 09/04/2024 Abstract [facility] ammonia nitrate operator Clinic [address] [facility] [address] [place] [address] Dental, Surgeon, [address] [place], [place] [address] Social History Tobacco Use Types Packs/Day Years [...] Pav CC Head, Neck & Respiratory [address] [facility], [address]nd [place] [address] Xiang Sanon MD [address] [place] [address] 10/06/2024 2:[address] [facility] edi developer Faculty [facility] [address] [facility] [address] [place] [address] Gopal Mckeon DMD, MD [address] [place] [address] documented as of this encounter Visit Diagnoses Not on filedocumented in this encounter Additional Health Concerns Assessment Noted Time A fall risk assessment has been complete d for the patient 08/10/2024 8:36 AM EDT A Body Mass Index follow-up plan has been documented for the patient 08/10/2024 9:01 AM EDT documented as of this encounter Care Teams Bilingual Sales Consultant Relationship Specialty Start Date End Date Jaquelin Robins APRN [address] [place] [address] PCP - General 08/05/24 documented as of this encounter
--- OUTSIDE RECORDS SUMMARY | 2024-09-09 10:38 | XMS_ITS | Clinical Summary ---
Author Organization [facility] Address [address] [place] [address] Care Team Providers Care Sewing Machine Operator Semiautomatic Name Role Phone Jaquelin Robins EMILIANO Primary Care Provider [phone] Allergies No known active allergies Medications valACYclovir [...] 05/05/2024 Active cholecalciferol (Vitamin D-3) 250 MCG (68591 UT) capsule Take 1 capsule by mouth 1 (one) time per week. 05/19/2024 Active cetirizine (ZyrTEC) 10 MG tablet Take 1 tablet by mouth daily. 05/05/2024 Active Active Problems Problem Noted Date Diagnosed Date Tobacco use disorder 06/02/2024 Cervical lymphadenopathy 06/02/2024 Encounters Date Type Department Care Team Description 09/04/2024 Abstract [facility] [address] [address] Dental, Surgeon, 2024 Orders Only [facility] [address] [phone] Xiang Sanon MD Cervical lymphadenopathy (Primary Dx) 09/02/2024 Telephone [facility] [address] [phone] Xiang Sanon MD 08/21/2024 Telephone [facility] [address] [address] Xiang Sanon MD 08/20/2024 Telephone [facility] [address] [address] Xiang Sanon MD 08/10/2024 8:30 AM EDT Office Visit [facility] [address] [phone] Xiang Sanon MD Anxiety (Primary Dx); Cervical lymphadenopathy 08/10/2024 Travel 08/09/2024 Travel 08/06/2024 Orders Only [facility] [address] [address] Xiang Sanon MD Cervical lymphadenopathy (Primary Dx) 08/06/2024 Telephone [facility] [address] [address] Xiang Sanon MD 08/05/2024 11:35 AM EDT - 08/05/2024 11:59 PM EDT Hospital Encounter [facility] [address] [place] [address] Cervical lymphadenopathy Discharge Disposition: Home or Self Care 08/05/2024 Travel 08/05/2024 Telephone [facility] [address] [phone] Xiang Sanon MD 08/05/2024 Orders Only [facility] [address] [phone] Xiang Sanon MD Cervical lymphadenopathy (Primary Dx) from Last 3 Months Social History Tobacco [...] 08/10/2024 8:32 AM EDT Plan of Treatment Upcoming Encounters Date Type Department Care Team (Late st Contact Info) Description 09/15/2024 10:00 AM EDT Office Visit [facility] 800 [facility], [address]nd [place] [phone] Xiang Sanon MD [address] [place] [address] 10/06/2024 2:30 PM EDT Evaluation [facility] graphite pan drier tender [facility] [address] [place] [address] [address] [place] [phone] Gopal Mckeon DMD, MD [address] [place] [address] [address] [place] [address] Health Maintenance Due Date Last Done Comments [...] 2 - PCV) 09/04/2015 [facility]-Pap Smear 2017 [id number] Vaccine (1 - 20 24-25 season) 2023 [facility]-Influenza Vaccine (#1) 2024 [facility]-Depression Screening 08/10/2025 08/10/2024 [facility]-Zoster Vaccines [...] Routine 08/05/2024 12:34 PM EDT Cervical lymphadenopathy HEPATITIS C ANTIBODY - ED W/REFLEX TO [...] error, please notify the sender immediately at [phone] and permanently delete the original report and destroy any copies or printouts. Narrative 08/06/2024 1:59 AM EDT [facility] - Phone Outpatient NAME: Aide Del Rio DATE OF EXAM: 08/05/2024 Patient No: [id number] Physician: Yuriy Date of : 1995 Past [...] Rio DATE OF EXAM: 08/05/2024 Patient No: [id number] Physician: Yuriy Date of : 1995 Past [...] in error, pleasenotify the sender immediately at [phone] and permanently delete theoriginal report and destroy any copies or printouts. us Xiang Sanon MD IMG CT PROCEDURES Final Result * ED HIV 1/2 Antibody/Antigen Screen w/Reflex to HIV 1/2 Differentiation (05/03/2024 3:47 PM EDT) HIV 1 & 2 Antibody/Antigen Screen Non Reactive Non Reactive 05/03/2024 4:46 PM EDT [facility] Comment:Screening for HIV 1 & 2 antibodies, and P24 antigen is NONREACTIVE. No confirmatory testing is required. Blood Venous blood specimen / Unknown Venipuncture / Unknown 05/03/2024 3:47 PM EDT 05/03/2024 4:04 PM EDT Colt Gutierrez MD LAB BLOOD ORDERABLES Final Result [facility] [address] [place] [address] * Hepatitis C Antibody - ED (05/03/2024 3:47 PM EDT) Hepatitis C Antibody Negative Negative 05/03/2024 4:43 PM EDT [facility] Blood Venous blood specimen / Unknown Venipuncture / Unknown 05/03/2024 3:47 PM EDT 05/03/2024 4:04 PM EDT Colt Gutierrez MD LAB BLOOD ORDERABLES Final Result [facility] [address] [place] [address] from Last 3 Months or Most Recently Relevant to [place] [address] [id number] ANTH Care Teams Sewing Machine Operator Semiautomatic Relationship Specialty Start Date End Date Jaquelin Robins APRN [address] [place] [address] PCP - General 08/05/24
--- OUTSIDE RECORDS SUMMARY | 2024-09-09 10:38 | XMS_ITS | Encounter Summary ---
Author Organization [facility] Address [address] [place] [address] Care Team Providers Care Vp Marketing Name Role Phone System, Provider Not In MD Primary Care Provider Unavailable Jaquelin Robins APRN Primary Care Provider [phone] Encounter Details Date Type Department Care Team (Late Contact Info) Description 05/08/2024 Orders Only External Location [address] [place] [address] Lilibeth Sutton APRN [address] [place] [address] [place] [address] Social History Tobacco Use Types Packs/Day Years [...] & Respiratory [address] [place] [address] Xiang Sanon MD [address] [place] [phone] 10/06/2024 2:30 PM EDT Evaluation [place] quality standard [facility] [address] [facility] [address] [place] [address] Gopal Mckeon DMD, MD [address] [facility] [address] [place] [address] documented as of this encounter Procedures Procedure Name Priority Date/Time Associated Diagnosis Comments US OUTSIDE IMAGES 05/08/2024 2:49 PM EDT documented in this encounter Results * US OUTSIDE IMAGES (05/08/2024 2:49 PM EDT) Anatomical Region Laterality Modality Ultrasound 05/08/2024 2:49 PM EDT us Lilibeth Sutton DEVICE SALES CONSULTANT IMG US PROCEDURES Final Result documented in this encounter Visit Diagnoses Not on filedocumented in this encounter Care Teams Vp Marketing Relationship Specialty Start Date End Date System, Provider Not In, [facility] [place] [address] PCP - General Family Medicine 05/03/24 08/04/24 Jaquelin Robins APRN [address] [place] [address] PCP - General 08/05/24 documented as of this encounter
--- OUTSIDE RECORDS SUMMARY | 2024-09-09 10:38 | XMS_ITS | Encounter Summary ---
Author Organization [facility] Address [address] [place] [address] Care Team Providers Care Senior Climate Advisor Name Role Phone Shimon Jaquelin EMILIANO Primary Care Provider [phone] Encounter Details Date Type Department Care Team (Late st Contact Info) Description 08/20/2024 Telephone [facility] [address] [place] [address] Xiang Sanon MD [address] [place] [address] Social History Tobacco Use Types Packs/Day Years [...] encounter Miscellaneous Notes * Telephone Encounter - Caryl Dumont - 08/25/2024 3:19 PM EDT Called and spoke with patient - relayed that per conversation between RN and Dr. Sanon an ultrasound is not necessary at this time. She expressed understanding and thanked me for calling. * Telephone Encounter - Jaquelin Castillo RN - 08/21/2024 11:33 AM EDT Returned call to patient to let her know that we will speak with Dr. Sanon next week and get back with her. She thanked me for calling her back. * Telephone Encounter - Denita Holman - 08/21/2024 10:22 AM EDT Pt has already established care with Psychiatry in [place]. Pt also asked about an update on her phone call regarding th ultrasound for new lump on lymph node * Telephone Encounter - Tori Brunson - 08/20/2024 8:11 AM EDT Patient Phone Message Reason for Call: Patient has new lymph node on clavicle and wants to know if Dr. Sanon wants to do an ultrasound on it. Best contact number and optimal time of day to reach caller: [phone] Note: Please do not reply to this message. Follow-up communication and further actions as a result of this message need to be communicated with the patient directly, if the patient is not active onMyChart. If the patient is active on MyChart, they will receive notification of the communication/outcome via MyChart. documented in this encounter Plan of Treatment Upcoming Encounters Date Type Department Care Team (Late st Contact Info) Description 09/15/2024 10:00 AM EDT Office Visit [facility] [address] [place] [address] Xiang Sanon MD [address] [facility] [address] [place] [address] 10/06/2024 2:[address] [facility] outside industrial sales representative [facility] [address] [facility] [address] [place] [address] Gopal Mckeon DMD, MD [address] [place] [address] documented as of this encounter Visit Diagnoses Not on filedocumented in this encounter Additional Health Concerns Assessment Noted Time A fall risk assessment has been complete d for the patient 08/10/2024 8:36 AM EDT A Body Mass Index follow-up plan has been documented for the patient 08/10/2024 9:01 AM EDT documented as of this encounter Care Teams Senior Climate Advisor Relationship Specialty Start Date End Date Jaquelin Robins APRN [address] [place] [address] PCP - General 08/05/24 documented as of this encounter
--- NOTE | 2024-09-09 11:00 | US_ITS ---
FINAL REPORT CLINICAL HISTORY: pt is concerned about a mass on her parotid gland COMPARISON: 06/05/2024 FINDINGS: Limited sonographic images of the bilateral neck with attention to the parotid and submandibular regions were obtained. There is an oval nodule in the right submandibular gland measuring up to 7 mm compatible with lymph node. There is an oval nodule in the inferior right parotid measuring 9 x 3 mm, unchanged from prior. This is also common patible with a lymph node. There is a lymph node adjacent to the left submandibular gland measuring 14 x 6 mm which was not evident on prior exam. Small normal size lymph node is seen overlying the left parotid. IMPRESSION: Newly seen borderline enlarged left submandibular lymph node. Other lymph nodes are stable in size. Reviewed, Interpreted and Dictated by Soha Crocker MD Transcribed by Yari Juan Authenticated and [facility]
== END 2024-09-09 23:59 | disposition home or self-care (01) ==
LOC: RAD 10:36
PROVIDERS: PCP Family Medicine; Visit Provider Nurse Practitioner
DX: R59.0 Localized enlarged lymph nodes (principal); R60.0 Localized edema
CPT/HCPCS: 76536